=== PATIENT | male | born 1945 | race Caucasian/White ===

== ENCOUNTER → 2022-08-09 | Outpatient (CLI) | payer MEDICARE ==
[2022-08-09 14:13] LABS: African American GFR (CKD) >90 (>60 ml/min/1.73 sqM); Blood Urea Nitrogen 17 mg/dL (9-20); Non-African American GFR(CKD) 80 (>60 ml/min/1.73 sqM)
--- NOTE | 2022-08-10 07:19 | CT ---
EXAMINATION TYPE: CT abdomen w con DATE OF EXAM: 08/09/2022 COMPARISON: None at this institution. HISTORY: Bile duct obstruction. Recent outside abnormal ultrasound. CT DLP: 1257 mGycm Automated exposure control for dose reduction was used. TECHNIQUE: Helical acquisition of images was performed from the lung bases through the top of iliac crest to include entire abdomen. CONTRAST: Performed with Oral Contrast and with IV Contrast, patient injected with 100 mL of Isovue 300. FINDINGS: LUNG BASES: Dense Calcification at level of the aortic valve.. LIVER/GB: Liver is diffusely low dense consistent with diffuse fatty infiltration. There are thin-wal led cysts of varying size and shape scattered throughout the liver, largest in right hepatic dome kenna sures 5.5 cm long axis axial image 14. There are few small dependent calcified gallstones in gallblad shoaib. No surrounding fluid or fat stranding is seen. Common bile duct is mildly dilated up to 13 mm co prince image 55 with abrupt tapering towards the duodenal ampulla. There is no significant intrahepati c biliary dilatation. PANCREAS: Some heterogeneity of the pancreas. No ductal dilatation. There is lobulated low dense mass in the uncinate process region of the pancreas measuring 2.9 x 2.8 cm axial image 36 SPLEEN: No significant abnormality is seen. ADRENALS: No significant abnormality is seen. KIDNEYS: There is 2.4 x 1.8 cm exophytic oval low dense lesion from the lower pole right kidney felt to reflect exophytic simple thin-walled cyst. BOWEL: Oral contrast does not reach colonic level. No suspicious bowel dilatation. LYMPH NODES: No significant abnormality is seen. OSSEOUS STRUCTURES: Osseous hemangioma involving the L1 vertebra with mild height loss at this level . Osseous structures are demineralized. Some bridging osteophytes in the thoracic spine are present. Disc calcification with [id number] disc space narrowing lumbosacral junction is seen. Facet art hropathy lower lumbar levels. FREE AIR: No free air is visualized. OTHER: Mild to moderate peripheral calcified plaque of the aorta extends into branch vessels. IMPRESSION: CONFIRMATION OF MILD TO MODERATE EXTRAHEPATIC BILIARY DILATATION WITHOUT VISUALIZED INTRAHEPATIC BILI JACKELYN DILATATION. THERE IS ABRUPT TAPERING. THERE IS NONSPECIFIC 2.9 CM LOBULATED LOW DENSE MASS IN THE UNCINATE PROCESS OF THE PANCREAS FAVORING CYSTIC ETIOLOGY. CYSTIC NEOPLASM CANNOT BE EXCLUDED. NO PA NCREATIC DUCTAL DILATATION. I WOULD ADVISE ERCP AND/OR ENDOSCOPIC ULTRASOUND TO FURTHER EVALUATE BOTH PANCREATIC LESION AND ABRUPT TAPERING OF THE CBD.
== END | disposition home or self-care (01) ==
LOC: RADCTMAIN 12:53
PROVIDERS: ATTEND Family Medicine
DX: K83.1 Obstruction of bile duct (principal); K83.8 Other specified diseases of biliary tract
CPT/HCPCS: 82565; 84520; 74160; Q9967

== ENCOUNTER 2022-08-27 08:40 | Inpatient (IN) | payer MEDICARE ==
--- NOTE | 2022-08-27 09:08 | ED ---
Abdominal Pain HPI - General Chief Complaint: Abdominal Pain Stated Complaint: Bladder pain Time Seen by Provider: 08/27/22 08:50 Source: patient Mode of arrival: ambulatory Limitations: no limitations - History of Present Illness Initial Comments: 77-year-old male with past history of high blood pressure, hypertension, recent diagnosis of pancreatic cancer and presents to the emergency department reporting urinary retention. He had a ERCP on Saturday at [facility]. Surgeon was Dr. León. Patient reports that after the procedure he has been unable to urinate. Has been dribbling since then without any real urine output. Denies previous history of this. Please he has been told that he had an enlarged prostate but does not take any medications. He is scheduled to follow-up on Saturday with Dr. León for a biliary stent. He called his surgeon this morning and told him that he has not had any urinary output and he recommended that he be evaluated in the emergency department. He does admit to some abdominal discomfort. No fevers. Admits nausea without vomiting. No other alleviating, precipitating or modifying factors - Related Data Home Medications Medication Instructions Recorded Confirmed Atorvastatin [Lipitor] 40 mg PO HS 12/05/15 08/27/22 amLODIPine [Norvasc] 10 mg PO HS 12/05/15 08/27/22 Cholecalciferol [Vitamin D3 (25 50 mcg PO DAILY 08/27/22 08/27/22 Mcg = 1000 Iu)] Cholestyramine (with Sugar) 4 gm PO BID 08/27/22 08/27/22 [Cholestyramine Packet] Multivit-Min/FA/Lycopen/Lutein 1 tab PO DAILY 08/27/22 08/27/22 [Centrum Silver Tablet] [place]-3 500mg 1 cap PO Q48H 08/27/22 08/27/22 Saw [place] 450mg 1 cap PO AC-BID 08/27/22 08/27/22 Vitamin E (Dl,Tocopheryl Acet) 400 unit PO W/SUPPER 08/27/22 08/27/22 [Vitamin E (400 Iu = 180 mg)] Vits A,C,E/Lutein/Minerals 1 tab PO DAILY 08/27/22 08/27/22 [Ocuvite with Lutein Tablet] Previous Rx's Medication Instructions Recorded Sodium Bicarbonate Tab 650 mg PO BID #0 tab 08/29/22 Tamsulosin [Flomax] 0.4 mg PO PC-SUPPER #30 cap 08/29/22 Allergies Allergy/AdvReac Type Severity Reaction Status Date / Time No Known Allergies Allergy Verified 08/27/22 12:52 Review of Systems ROS Statement: Those systems with pertinent positive or pertinent negative responses have been documented in the HPI. ROS Other: All systems not noted in ROS Statement are negative. Past Medical History Past Medical History: Hyperlipidemia, Hypertension History of Any Multi-Drug Resistant Organisms: None Reported Past Surgical History: Joint Replacement Additional Past Surgical History / Comment(s): RIGHT KNEE REPLACED. Past Anesthesia/Blood Transfusion Reactions: No Reported Reaction Past Psychological History: No Psychological Hx Reported Smoking Status: Never smoker Past Alcohol Use History: Occasional Past Drug Use History: None Reported - Past Family History Brother(s) Additional Family Medical History / Comment(s): gallstones Father Additional Family Medical History / Comment(s): prostate cancer, from "old age" Mother Additional Family Medical History / Comment(s): from PE after open heart surgery. General Exam Limitations: no limitations General appearance: alert, in no apparent distress Head exam: Present: atraumatic, normocephalic, normal inspection Eye exam: Present: normal appearance, PERRL, EOMI. Absent: scleral icterus, conjunctival injection, periorbital swelling ENT exam: Present: normal exam, mucous membranes moist Neck exam: Present: normal inspection. Absent: tenderness, meningismus, lymphadenopathy Respiratory exam: Present: normal lung sounds bilaterally. Absent: respiratory distress, wheezes, rales, rhonchi, stridor Cardiovascular Exam: Present: regular rate, normal rhythm, normal heart sounds. Absent: systolic murmur, diastolic murmur, rubs, gallop, clicks GI/Abdominal exam: Present: soft, distended (suprapubic), tenderness, normal bowel sounds. Absent: guarding, rebound, rigid Extremities exam: Present: normal inspection, full ROM, normal capillary refill. Absent: tenderness, pedal edema, joint swelling, calf tenderness Back exam: Present: normal inspection Neurological exam: Present: alert, oriented X3, CN II-XII intact Psychiatric exam: Present: normal affect, normal mood Skin exam: Present: warm, dry, intact, other (jaundice). Absent: rash Course Vital Signs 0408/27/22 08/27/22 08:45 12:22 15:51 Temperature 97.7 F 97.7 F Pulse Rate 81 69 94 Respiratory 18 16 19 Rate Blood Pressure 102/62 112/60 107/55 O2 Sat by Pulse 98 97 98 Oximetry 08/27/22 08/27/22 08/28/22 18:36 23:55 03:19 Temperature Pulse Rate 77 72 72 Respiratory 20 18 18 Rate Blood Pressure 111/55 106/54 119/70 O2 Sat by Pulse 97 97 98 Oximetry 08/28/22 08/28/22 08/28/22 06:16 09:55 13:22 Temperature Pulse Rate 76 69 71 Respiratory 18 18 18 Rate Blood Pressure 118/60 112/58 126/74 O2 Sat by Pulse 97 98 95 Oximetry - Reevaluation(s) Reevaluation #1: Page the patient's surgeon, Dr. León. Awaiting callback 08/27/22 10:40 Reevaluation #2: Spoke with Dr. Albright. Better to transfer the patient at this time due to rising bilis 08/27/22 11:25 Reevaluation #3: Dr. Donato accepts the patient - will call Dr. Albright back 08/27/22 14:02 Medical Decision Making - Medical Decision Making Was pt. sent in by a medical professional or institution ([facility], [facility], urgent care, hospital, or senior care...) When possible be specific @ -No Did you speak to anyone other than the patient for history (EMS, parent, family, police, friend...)? What history was obtained from this source @ - Did you review nursing and triage notes (agree or disagree)? Why? @ -I reviewed and agree with nursing and triage notes Were old charts reviewed (outside hosp., previous admission, EMS record, old EKG, old radiological studies, urgent care reports/EKG's, senior care records)? Report findings @ -old charts were reviewed - brings the patients paperwork from his care at [facility] Differential Diagnosis (chest pain, altered mental status, abdominal pain women, abdominal pain men, vaginal bleeding, weakness, fever, dyspnea, syncope, headache, dizziness, GI bleed, back pain, seizure, CVA, palpatations, mental health, musculoskeletal)? @ -urinary retention, sedation side effect, uti, metastatic cancer, enlarged prostate EKG interpreted by me (3pts min.). @ -No X-rays interpreted by me (1pt min.). @ -No CT interpreted by me (1pt min.). @ -None done U/S interpreted by me (1pt. min.). @ -None done What testing was considered but not performed or refused? (CT, X-rays, U/S, labs)? Why? @ -None What meds were considered but not given or refused? Why? @ -None Did you discuss the management of the patient with other professionals (professionals i.e. DrSissy, PA, [employer], lab, RT, psych nurse, transition social worker, solutions architect consultant, teacher, ambulance officer, case preparer and liner)? Give summary @ -Patients surgeon Dr. León, Dr. Donato, Dr. Albright, [facility] Was smoking cessation discussed for >3mins.? @ -No Was critical care preformed (if so, how long)? @ -No Were there social determinants of health that impacted care today? How? (Homelessness, low income, unemployed, alcoholism, drug addiction, transportation, low edu. Level, literacy, decrease access to med. care, penitentiary, rehab)? @ -No Was there de-escalation of care discussed even if they declined (Discuss DNR or withdrawal of care, Hospice)? DNR status @ -No What co-morbidities impacted this encounter? (DM, HTN, Smoking, COPD, CAD, C ancer, CVA, ARF, Chemo, Hep., AIDS, mental health diagnosis, sleep apnea, morbid obesity)? @ -pancreatic cancer Was patient admitted / discharged? Hospital course, mention meds given and route, prescriptions, significant lab abnormalities, going to OR and other pertinent info. @ -Upon arrival patient was placed into room 3. History and physical exam was performed. Patient does have significant readings on bladder scan and therefore Perez is placed. Patient does have output of 2900 cc of urine. Laboratory studies were completed which demonstrate a creatinine of 4.4. Bilirubin is 20 however this is stable for the patient according to his surgeon. Did speak with the patient's surgeon at [facility]. He does not that the patient needs transfer to [facility] as they will cancel the biliary stents of the kidney function is improved. I spoke with Dr. Cline who was agreeable to consult on the patient because of his elevated bilirubin. Called and spoke with Dr. Albright who was agreeable to admit the patient and nephrology will be placed on consult. Patient was agreeable to this. Undiagnosed new problem with uncertain prognosis? @ -yes Drug Therapy requiring intensive monitoring for toxicity (Heparin, Nitro, Insulin, Cardizem)? @ -No Were any procedures done? @ -perez placement Diagnosis/symptom? @ -acute urinary retention, melvin, pancreatic cancer with obstruction (chronic) Acute, or Chronic, or Acute on Chronic? @ -acute Uncomplicated (without systemic symptoms) or Complicated (systemic symptoms)? @ -complicated Side effects of treatment? @ -No Exacerbation, Progression, or Severe Exacerbation? @ -No Poses a threat to life or bodily function? How? (Chest pain, USA, PA, pneumonia, PE, COPD, DKA, ARF, appy, cholecystitis, CVA, Diverticulitis, Homicidal, Suicidal, threat to staff... and all critical care pts) @ -yes - Lab Data Result diagrams: 08/28/22 05:58 08/29/22 06:40 Lab Results 08/27/22 08/27/22 08/27/22 Range/Units 09:46 09:46 09:46 WBC 12.6 H (3.8-10.6) k/uL RBC 3.78 L (4.30-5.90) m/uL Hgb 11.9 L (13.0-17.5) gm/dL Hct 35.7 L (39.0-53.0) % MCV 94.6 (80.0-100.0) fL MCH 31.6 (25.0-35.0) pg MCHC 33.4 (31.0-37.0) g/dL RDW 16.5 H (11.5-15.5) % Plt Count 195 (150-450) k/uL MPV 10.1 Neutrophils % 83 % Lymphocytes % 5 % Monocytes % 8 % Eosinophils % 0 % Basophils % 0 % Neutrophils # 10.4 H (1.3-7.7) k/uL Lymphocytes # 0.7 L (1.0-4.8) k/uL Monocytes # 1.1 H (0-1.0) k/uL Eosinophils # 0.1 (0-0.7) k/uL Basophils # 0.0 (0-0.2) k/uL Anisocytosis Slight Sodium 131 L (137-145) mmol/L Potassium 5.0 (3.5-5.1) mmol/L Chloride 97 L (98-107) mmol/L Carbon Dioxide 14 L (22-30) mmol/L Anion Gap 20 mmol/L BUN 87 H (9-20) mg/dL Creatinine 4.44 H (0.66-1.25) mg/dL Est GFR (CKD-EPI)AfAm 14 (>60 ml/min/1.73 sqM) Est GFR (CKD-EPI)NonAf 12 (>60 ml/min/1.73 sqM) Glucose 105 H (74-99) mg/dL Calcium 8.0 L (8.4-10.2) mg/dL Total Bilirubin 20.0 H* (0.2-1.3) mg/dL AST 150 H (17-59) U/L ALT 78 H (4-49) U/L Alkaline Phosphatase 465 H (38-126) U/L Total Protein 7.1 (6.3-8.2) g/dL Albumin 3.6 (3.5-5.0) g/dL Urine Color Dark Brown Urine Appearance Cloudy (Clear) Urine pH 5.5 (5.0-8.0) Ur Specific [place] 1.017 (1.001-1.035) Urine Protein Trace H (Negative) Urine Glucose (UA) Negative (Negative) Urine Ketones Negative (Negative) Urine Blood Small H (Negative) Urine Nitrite Negative (Negative) Urine Bilirubin 1+ H (Negative) Urine Urobilinogen <2.0 (<2.0) mg/dL Ur Leukocyte Esterase Negative (Negative) Urine RBC 14 H (0-5) /hpf Urine WBC 3 (0-5) /hpf Urine Mucus Rare H (None) /hpf Coronavirus (PCR) (Not Detectd) 08/27/22 Range/Units 11:46 WBC (3.8-10.6) k/uL RBC (4.30-5.90) m/uL Hgb (13.0-17.5) gm/dL Hct (39.0-53.0) % MCV (80.0-100.0) fL MCH (25.0-35.0) pg MCHC (31.0-37.0) g/dL RDW (11.5-15.5) % Plt Count (150-450) k/uL MPV Neutrophils % % Lymphocytes % % Monocytes % % Eosinophils % % Basophils % % Neutrophils # (1.3-7.7) k/uL Lymphocytes # (1.0-4.8) k/uL Monocytes # (0-1.0) k/uL Eosinophils # (0-0.7) k/uL Basophils # (0-0.2) k/uL Anisocytosis Sodium (137-145) mmol/L Potassium (3.5-5.1) mmol/L Chloride (98-107) mmol/L Carbon Dioxide (22-30) mmol/L Anion Gap mmol/L BUN (9-20) mg/dL Creatinine (0.66-1.25) mg/dL Est GFR (CKD-EPI)AfAm (>60 ml/min/1.73 sqM) Est GFR (CKD-EPI)NonAf (>60 ml/min/1.73 sqM) Glucose (74-99) mg/dL Calcium (8.4-10.2) mg/dL Total Bilirubin (0.2-1.3) mg/dL AST (17-59) U/L ALT (4-49) U/L Alkaline Phosphatase (38-126) U/L Total Protein (6.3-8.2) g/dL Albumin (3.5-5.0) g/dL Urine Color Urine Appearance (Clear) Urine pH (5.0-8.0) Ur Specific [place] (1.001-1.035) Urine Protein (Negative) Urine Glucose (UA) (Negative) Urine Ketones (Negative) Urine Blood (Negative) Urine Nitrite (Negative) Urine Bilirubin (Negative) Urine Urobilinogen (<2.0) mg/dL Ur Leukocyte Esterase (Negative) Urine RBC (0-5) /hpf Urine WBC (0-5) /hpf Urine Mucus (None) /hpf Coronavirus (PCR) Not Detected (Not Detectd) Disposition Clinical Impression: MELVIN (acute kidney injury), Elevated bilirubin, Pancreatic cancer, Urinary retention Disposition: ADMITTED IP TO THIS [facility] Condition: Stable Is patient prescribed a controlled substance at d/c from ED?: No Time of Disposition: 11:37 Decision to Admit Reason: Admit from EC Decision Date: 08/27/22 Decision Time: 14:03
[2022-08-27 10:10] LABS: Anisocytosis Slight; Basophils % (A) 0 %; Eosinophils # (A) 0.1 k/uL (0-0.7); Eosinophils % (A) 0 %; HCT 35.7 % (39.0-53.0); HGB 11.9 gm/dL (13.0-17.5); Lymphocytes # (A) 0.7 k/uL (1.0-4.8); Lymphocytes % (A) 5 %; MCH 31.6 pg (25.0-35.0); MCHC 33.4 g/dL (31.0-37.0); MCV 94.6 fL (80.0-100.0); Mean Platelet Volume 10.1; Monocytes # (A) 1.1 k/uL (0-1.0); Monocytes % (A) 8 %; Neutrophils # (A) 10.4 k/uL (1.3-7.7); Neutrophils % (A) 83 %; Platelet Count 195 k/uL (150-450); RBC 3.78 m/uL (4.30-5.90); RDW 16.5 % (11.5-15.5); WBC 12.6 k/uL (3.8-10.6)
[2022-08-27 10:15] LABS: Albumin 3.6 g/dL (3.5-5.0); Total Protein 7.1 g/dL (6.3-8.2)
[2022-08-27 10:27] LABS: Appearance,Urine Cloudy (Clear); Bilirubin,Urine 1+ (Negative); Blood,Urine Small (Negative); Color,Urine Dark Brown; Glucose,Urine (UA) Negative (Negative); Ketones,Urine Negative (Negative); Leukocyte Esterase,Urine Negative (Negative); Mucus,Urine Rare /hpf; Nitrite,Urine Negative (Negative); PH, Urine 5.5 (5.0-8.0); Protein,Urine Trace (Negative); RBC,Urine 14 /hpf (0-5); Specific Gravity,Urine 1.017 (1.001-1.035); Urobilinogen,Urine <2.0 mg/dL (<2.0); WBC,Urine 3 /hpf (0-5)
[2022-08-27] MEDS ORDERED: NALOXONE 0.4 MG/ML 1 ML VIAL IV PRN (14:03)
[2022-08-27] MEDS: SODIUM CHLORIDE 0.9% 1,000 ML IV SCH ×2 (17:16→23:55)
[2022-08-28] MEDS: SODIUM CHLORIDE 0.9% 1,000 ML IV SCH ×2 (06:19→15:40)
--- NOTE | 2022-08-28 07:01 | P.CONS ---
History of Present Illness - Reason for Consult Consult date: 08/28/22 Pancreatic cancer Requesting physician: Monica Lomax - Chief Complaint Bladder distention, urinary retention - History of Present Illness This a pleasant 77-year-old male presented to the emergency department this morning with complaints of bladder distention and urinary retention since last week Saturday. Patient was recently seen by Dr. Donato in outpatient setting for jaundice and sent down to [facility] for biliary obstructive jaundice to undergo ERCP and EUS. Apparently there was concern for a 2 cm mass seen on EUS, they were unable to insert stent. Patient was scheduled to go back to [facility] to see their interventional radiologist. Concern for pancreatic carcinoma. Patient states he currently is feeling better, apparently Lee catheter was inserted and he had approximately 3 L of urine output. Patient states he's had a decreased appetite, some fatigue. He denies any nausea or vomiting. Denies any abdominal pain. Last bowel movement was today. Denies any ascites and occasionally gets lower extremity swelling in the bernard nings. He denies any previous history of urinary retention. On admission he was noted to have acute kidney injury. Gastroenterology was consulted for hyperbilirubinemia, concern for pancreatic carcinoma. Labs WBC 12.6 hemoglobin 11.9 hematocrit 35 platelet count 195,000 sodium 131 potassium 5.0 BUN 87 creatinine 4.4 glucose 105 total bilirubin 20.0 AST 150 ALT 78 alkaline phosphatase 465 Review of Systems REVIEW OF SYSTEMS: CARDIOPULMONARY: No chest pain or shortness of breath. Gastrointestinal: Upset stomach, no abdominal pain. Nausea but no vomiting. Decreased appetite. No hematemesis, coffee-ground emesis. No rectal bleeding, or melena. GENITOURINARY: No dysuria or hematuria. Urinary retention, unable to void for 5 days. MUSCULOSKELETAL: Reports normal range of motion. SKIN: No rashes. Jaundice. ENDOCRINE: No chills, fevers. No excessive weight gain or loss. No polydipsia or polyuria. PSYCHIATRIC: Unremarkable. NEUROLOGY: No change in mental status. Denies dizziness, headache. ENT: Vision unremarkable. CONSTITUTIONAL: No recent weight loss. No fever, chills, night sweats. Increased fatigue. Past Medical History Past Medical History: Hyperlipidemia, Hypertension History of Any Multi-Drug Resistant Organisms: None Reported Past Surgical History: Joint Replacement Additional Past Surgical History / Comment(s): RIGHT KNEE REPLACED. Past Anesthesia/Blood Transfusion Reactions: No Reported Reaction Past Psychological History: No Psychological Hx Reported Smoking Status: Never smoker Past Alcohol Use History: Occasional Past Drug Use History: None Reported Medications and Allergies Home Medications Medication Instructions Recorded Confirmed Type Atorvastatin [Lipitor] 40 mg PO HS 12/05/15 08/27/22 History amLODIPine [Norvasc] 10 mg PO HS 12/05/15 08/27/22 History Cholecalciferol [Vitamin D3 (25 50 mcg PO DAILY 08/27/22 08/27/22 History Mcg = 1000 Iu)] Cholestyramine (with Sugar) 4 gm PO BID 08/27/22 08/27/22 History [Cholestyramine Packet] Losartan Potassium 100 mg PO DAILY 08/27/22 08/27/22 History Multivit-Min/FA/Lycopen/Lutein 1 tab PO DAILY 08/27/22 08/27/22 History [Centrum Silver Tablet] [place]-3 500mg 1 cap PO Q48H 08/27/22 08/27/22 History Saw [place] 450mg 1 cap PO AC-BID 08/27/22 08/27/22 History Vitamin E (Dl,Tocopheryl Acet) 400 unit PO W/SUPPER 08/27/22 08/27/22 History [Vitamin E (400 Iu = 180 mg)] Vits A,C,E/Lutein/Minerals 1 tab PO DAILY 08/27/22 08/27/22 History [Ocuvite with Lutein Tablet] Allergies Allergy/AdvReac Type Severity Reaction Status Date / Time No Known Allergies Allergy Verified 08/27/22 12:52 Physical Exam Vitals: Vital Signs Temp Pulse Resp BP Pulse Ox 08/27/22 15:51 97.7 F 94 19 107/55 98 08/27/22 12:22 69 16 112/60 97 08/27/22 08:45 97.7 F 81 18 102/62 98 Intake and Output 08/27/22 08/27/22 08/27/22 06:59 14:59 22:59 Other: Weight 99.79 kg General appearance: The patient is alert, oriented, appears in no acute distress. HET: Head is normocephalic and atraumatic. Conjunctiva pink. Sclera deeply icteric. Neck: Supple without lymphadenopathy. Trachea midline. Heart: S1 S2. Regular rate and rhythm. Lungs: Clear to auscultation. Abdomen: Soft, nontender, nondistended with bowel sounds. No guarding or rigidity. Skin: No rashes. Jaundiced. Extremities: Normal skin color and turgor. No pedal edema. Neurological: No focal deficits. Alert and oriented x3. Results CBC & Chem 7: 08/27/22 09:46 08/27/22 09:46 Labs: Abnormal Lab Results - Last 24 Hours (Table) 08/27/22 08/27/22 08/27/22 Range/Units 09:46 09:46 09:46 WBC 12.6 H (3.8-10.6) k/uL RBC 3.78 L (4.30-5.90) m/uL Hgb 11.9 L (13.0-17.5) gm/dL Hct 35.7 L (39.0-53.0) % RDW 16.5 H (11.5-15.5) % Neutrophils # 10.4 H (1.3-7.7) k/uL Lymphocytes # 0.7 L (1.0-4.8) k/uL Monocytes # 1.1 H (0-1.0) k/uL Sodium 131 L (137-145) mmol/L Chloride 97 L (98-107) mmol/L Carbon Dioxide 14 L (22-30) mmol/L BUN 87 H (9-20) mg/dL Creatinine 4.44 H (0.66-1.25) mg/dL Glucose 105 H (74-99) mg/dL Calcium 8.0 L (8.4-10.2) mg/dL Total Bilirubin 20.0 H* (0.2-1.3) mg/dL AST 150 H (17-59) U/L ALT 78 H (4-49) U/L Alkaline Phosphatase 465 H (38-126) U/L Urine Protein Trace H (Negative) Urine Blood Small H (Negative) Urine Bilirubin 1+ H (Negative) Urine RBC 14 H (0-5) /hpf Urine Mucus Rare H (None) /hpf Assessment and Plan (1) Hyperbilirubinemia Narrative/Plan: This is a 77-year-old male who recently established with Dr. Donato in the outpatient setting for jaundice. Patient was recently sent on to [facility] to gastroenterology for concerns of biliary obstructive jaundice. Patient underwent ERCP and EUS, approximate 2 cm mass was found however biliary stent was unable to be placed. Concerns for pancreatic carcinoma. Patient supposed to follow-up this week with [facility] interventional radiologist for possible stent placement. However over the last 5 days patient has been unable to urinate. Patient was admitted with urinary retention and acute kidney injury. Patient is stable from a gastroenterology perspective. Once urinary retention improves and acute kidney injury resolved patient will follow up outpatient with [facility]. Current Visit: Yes Status: Acute Code(s): E80.6 - OTHER DISORDERS OF BILIRUBIN METABOLISM SNOMED Code(s): 56827320 (2) MELVIN (acute kidney injury) Current Visit: Yes Status: Acute Code(s): N17.9 - ACUTE KIDNEY FAILURE, UNSPECIFIED SNOMED Code(s): 91711070 (3) Urinary retention Current Visit: Yes Status: Acute Code(s): R33.9 - RETENTION OF URINE, UNSPECIFIED SNOMED Code(s): 914216235 Plan: 1. Continue symptomatic and supportive care 2. Continue recommendations from nephrology 3. Heart healthy diet 4. Repeat BMP 5. No plans on endoscopic evaluation. Patient is established with [facility] Dr. León for biliary obstructive jaundice. Patient to follow-up as planned with [facility] in next 1-2 days Thank you for this consultation, we will continue to follow. Dr. Jony Donato I agree with the dictator's note, documented as a scribe by Johanna Hastings.
[2022-08-28] MEDS: CHOLECALCIFEROL 25 MCG (1000 IU) TABLET PO SCH (10:39)
[2022-08-28] MEDS: CHOLESTYRAMINE (WITH SUGAR) 4 GM PACKET PO SCH ×2 (10:40→21:20)
[2022-08-28 11:06] LABS: HGB 10.2 g/dL (13.0-17.0); MCH 29.7 pg (27.0-32.0); MCHC 32.9 g/dL (32.0-37.0); MCV 90.1 fL (80.0-97.0); Mean Platelet Volume 12.1 fL (9.5-12.2); NRBC Per 100 WBC 0 /100 WBCS (0.0-0.0); Platelet Count 186 X 10*3/uL (140-440); RBC 3.44 X 10*6/uL (4.40-5.60); RDW 18.6 % (11.5-14.5); WBC 8.84 X 10*3/uL (4.50-10.00)
[2022-08-28 11:21] LABS: African American GFR (CKD) 30.8 (60.0-200.0); Anion Gap 13.5 mmol/L (10.00-18.00); BUN/Creat Ratio 25.52 Ratio (12.00-20.00); Blood Urea Nitrogen 58.7 mg/dL (9.0-27.0); Calcium 7.8 mg/dL (8.7-10.3); Carbon Dioxide 17.5 mmol/L (20.0-27.5); Non-African American GFR(CKD) 26.6 (60.0-200.0); Potassium 4.7 mmol/L (3.5-5.5)
[2022-08-28 13:44] LABS: Basophils # (A) 0.03 X 10*3/uL (0.00-0.10); Basophils % (A) 0.3 %; Eosinophils # (A) 0.06 X 10*3/uL (0.04-0.35); Eosinophils % (A) 0.7 %; Immature Grans, Automated 0.3 %; Lymphocytes # (A) 0.68 X 10*3/uL (0.90-5.00); Lymphocytes % (A) 7.7 %; Monocytes # (A) 1.58 X 10*3/uL (0.20-1.00); Monocytes % (A) 17.9 %; Neutrophils # (A) 6.46 X 10*3/uL (1.80-7.70); Neutrophils % (A) 73.1 %
[2022-08-28 13:45] LABS: Macrocytosis (M) 2+; Target Cells 2+
--- NOTE | 2022-08-28 13:57 | P.HPIM ---
History of Present Illness H&P Date: 08/28/22 Chief Complaint: Difficulty urinating, bladder distention This is a pleasant 77-year-old gentleman with past medical history of hypertension, hyperlipidemia, BPH, biliary obstructive jaundice, recently-last week at [facility] for ERCP/stent placement. Suspicious for pancreatic carcinoma; a mass seen on EUS and they are unable to proceed with stent placement. Biopsy pending. Patient is scheduled to return to [facility] with interventional radiology, Dr León, for biliary stent placement. Reports decreased appetite ,denies nausea ,vomiting or abdominal pain. Positive bowel movement yesterday. Reports his urine became very dark, along with pauline colored stools and eventually was unable to urinate over the last 5 days.Afebrile WBC 12.6-now normalized, hemoglobin 10.2, hematocrit 31, platelets 186, sodium 132, potassium 4.7 bicarb 17.5. On admission BUN 87, creatinine 4.44, improving ,dedreased to 58.7/2.3. Total bilirubin 20.0 AST 150 ALT 78 alkaline phosphatase 465.UA negative, coronavirus not detected. Lee catheter placed, receiving IV fluid hydration. Review of Systems ROS Statement: Those systems with pertinent positive or pertinent negative responses have been documented in the HPI. ROS Other: All systems not noted in ROS Statement are negative. Past Medical History Past Medical History: Hyperlipidemia, Hypertension History of Any Multi-Drug Resistant Organisms: None Reported Past Surgical History: Joint Replacement Additional Past Surgical History / Comment(s): RIGHT KNEE REPLACED. Past Anesthesia/Blood Transfusion Reactions: No Reported Reaction Past Psychological History: No Psychological Hx Reported Smoking Status: Never smoker Past Alcohol Use History: Occasional Past Drug Use History: None Reported Medications and Allergies Home Medications Medication Instructions Recorded Confirmed Type Atorvastatin [Lipitor] 40 mg PO HS 12/05/15 08/27/22 History amLODIPine [Norvasc] 10 mg PO HS 12/05/15 08/27/22 History Cholecalciferol [Vitamin D3 (25 50 mcg PO DAILY 08/27/22 08/27/22 History Mcg = 1000 Iu)] Cholestyramine (with Sugar) 4 gm PO BID 08/27/22 08/27/22 History [Cholestyramine Packet] Losartan Potassium 100 mg PO DAILY 08/27/22 08/27/22 History Multivit-Min/FA/Lycopen/Lutein 1 tab PO DAILY 08/27/22 08/27/22 History [Centrum Silver Tablet] [place]-3 500mg 1 cap PO Q48H 08/27/22 08/27/22 History Saw [place] 450mg 1 cap PO AC-BID 08/27/22 08/27/22 History Vitamin E (Dl,Tocopheryl Acet) 400 unit PO W/SUPPER 08/27/22 08/27/22 History [Vitamin E (400 Iu = 180 mg)] Vits A,C,E/Lutein/Minerals 1 tab PO DAILY 08/27/22 08/27/22 History [Ocuvite with Lutein Tablet] Allergies Allergy/AdvReac Type Severity Reaction Status Date / Time No Known Allergies Allergy Verified 08/27/22 12:52 Physical Exam Vitals: Vital Signs Temp Pulse Resp BP Pulse Ox 08/28/22 09:55 69 18 112/58 98 08/28/22 06:16 76 18 118/60 97 08/28/22 03:19 72 18 119/70 98 08/27/22 23:55 72 18 106/54 97 08/27/22 18:36 77 20 111/55 97 08/27/22 15:51 97.7 F 94 19 107/55 98 08/27/22 12:22 69 16 112/60 97 Intake and Output 08/27/22 08/28/22 08/28/22 22:59 06:59 14:59 Output Total 1200 1800 Balance -1200 -1800 Output: Urine 1200 1800 PHYSICAL EXAM: VITAL SIGNS: As above GENERAL: Sitting up on stretcher, no acute distress, jaundiced. HEENT: Normocephalic, atraumatic ,Conjunctivae normal. eyes normal. Sclera icterus NECK: Supple, No JVD. No thyroid enlargement. No LNs CARDIOVASCULAR: S1, S2 regular.. No murmur RESPIRATION: Nonlabored ,Breath sounds diminished in the bases. No rhonchi or crackles. No bronchial breathing. ABDOMEN: Soft, nondistended, nontender . No guarding. No rigidity .+BS LEGS: No edema. no swelling PSYCHIATRY: Alert and oriented X3, mood and affect normal. NERVOUS SYSTEM: Cranial N 2-12 grossly normal. No focal deficits. Strength and sensation grossly intact.. Skin: Jaundiced ,Warm and dry, no rash. Results CBC & Chem 7: 08/28/22 05:58 08/28/22 05:58 Labs: Abnormal Lab Results - Last 24 Hours (Table) 08/27/22 08/27/22 08/27/22 Range/Units 09:46 09:46 09:46 WBC 12.6 H (3.8-10.6) k/uL RBC 3.78 L (4.30-5.90) m/uL Hgb 11.9 L (13.0-17.5) gm/dL Hct 35.7 L (39.0-53.0) % RDW 16.5 H (11.5-15.5) % Neutrophils # 10.4 H (1.3-7.7) k/uL Lymphocytes # 0.7 L (1.0-4.8) k/uL Monocytes # 1.1 H (0-1.0) k/uL Sodium 131 L (137-145) mmol/L Chloride 97 L (98-107) mmol/L Carbon Dioxide 14 L (22-30) mmol/L BUN 87 H (9-20) mg/dL Creatinine 4.44 H (0.66-1.25) mg/dL Glucose 105 H (74-99) mg/dL Calcium 8.0 L (8.4-10.2) mg/dL Total Bilirubin 20.0 H* (0.2-1.3) mg/dL AST 150 H (17-59) U/L ALT 78 H (4-49) U/L Alkaline Phosphatase 465 H (38-126) U/L Urine Protein Trace H (Negative) Urine Blood Small H (Negative) Urine Bilirubin 1+ H (Negative) Urine RBC 14 H (0-5) /hpf Urine Mucus Rare H (None) /hpf Assessment and Plan Assessment: Acute renal failure secondary to urinary retention, Lee catheter placed, improving. Hyperbilirubinemia with biliary obstructive jaundice Workup in progress for Pancreatic cancer at [facility], biliary stent placement pending. Plan: Continue on current medication regime ,monitoring and symptomatic treatment. IV fluid hydration. Nephrology consult in place, recommendations pending. Close monitoring of renal function with repeat labs ordered for a.m. evaluated by GI with recommendations noted including no endoscopy plans-patient to return to [facility]. Patient will be discharged as soon as renal function significantly improves with patient to continue following up with [facility] for biliary stent [facility] The impression and plan of care has been dictated as directed. : I performed a history and examination of this patient, discussed the same with the dictator. I agree with the dictator's note ,documented as a scribe. Any additional findings or plans will be noted.
--- NOTE | 2022-08-28 16:06 | P.NPCON ---
History of Present Illness - Reason for Consult acute renal failure - History of Present Illness Reason for consultation: Acute kidney injury History of present illness: Patient is a 77-year-old male seen in renal consultation for acute kidney injury. Patient was seen and examined in the emergency room. Patient states he noticed jaundice in early July of this year and was subsequently diagnosed with pancreatic cancer recently. States he underwent ERCP at an outside facility and is scheduled for a biliary stent placement tomorrow. He has not started any chemotherapy at this time. Patient states since his ERCP he wasn't voiding much. Patient's creatinine on admission was 4.44 and is 2.3 today. He was noted to have urinary retention and Lee catheter was placed. Patient is nonoliguric with about 3 L of urine output since admission. He denies use of nonsteroidals. He is receiving IV fluids. Denies history of diabetes or coronary artery disease. No vomiting or diarrhea. Oral intake has been fair. Vital signs are stable. General: No acute distress. HEENT: Head exam is unremarkable. LUNGS: No audible rhonchi or wheezes. HEART: Rate and Rhythm are regular. ABDOMEN: Soft, nontender. EXTREMITITES: No edema. Diffuse jaundice noted. Past Medical History Past Medical History: Hyperlipidemia, Hypertension, Prostate Disorder Additional Past Medical History / Comment(s): currently jaundiced, current urinary retention, pancreatic cancer diagnosed on 08/22/22 at [facility] History of Any Multi-Drug Resistant Organisms: None Reported Past Surgical History: Joint Replacement Additional Past Surgical History / Comment(s): right knee replaced, ercp (no stent) at [facility] on 08/22/22, Past Anesthesia/Blood Transfusion Reactions: No Reported Reaction Additional Past Anesthesia/Blood Transfusion Reaction / Comment(s): never received blood before Past Psychological History: No Psychological Hx Reported Smoking Status: Never smoker Past Alcohol Use History: Occasional Past Drug Use History: None Reported - Past Family History Brother(s) Additional Family Medical History / Comment(s): gallstones Father Additional Family Medical History / Comment(s): prostate cancer, from "old age" Mother Additional Family Medical History / Comment(s): from PE after open heart surgery. Medications and Allergies Home Medications Medication Instructions Recorded Confirmed Type Atorvastatin [Lipitor] 40 mg PO HS 12/05/15 08/27/22 History amLODIPine [Norvasc] 10 mg PO HS 12/05/15 08/27/22 History Cholecalciferol [Vitamin D3 (25 50 mcg PO DAILY 08/27/22 08/27/22 History Mcg = 1000 Iu)] Cholestyramine (with Sugar) 4 gm PO BID 08/27/22 08/27/22 History [Cholestyramine Packet] Losartan Potassium 100 mg PO DAILY 08/27/22 08/27/22 History Multivit-Min/FA/Lycopen/Lutein 1 tab PO DAILY 08/27/22 08/27/22 History [Centrum Silver Tablet] [place]-3 500mg 1 cap PO Q48H 08/27/22 08/27/22 History Saw [place] 450mg 1 cap PO AC-BID 08/27/22 08/27/22 History Vitamin E (Dl,Tocopheryl Acet) 400 unit PO W/SUPPER 08/27/22 08/27/22 History [Vitamin E (400 Iu = 180 mg)] Vits A,C,E/Lutein/Minerals 1 tab PO DAILY 08/27/22 08/27/22 History [Ocuvite with Lutein Tablet] Allergies Allergy/AdvReac Type Severity Reaction Status Date / Time No Known Allergies Allergy Verified 08/27/22 12:52 Physical Exam Vitals: Vital Signs Pulse Resp BP Pulse Ox 08/28/22 13:22 71 18 126/74 95 08/28/22 09:55 69 18 112/58 98 08/28/22 06:16 76 18 118/60 97 08/28/22 03:19 72 18 119/70 98 08/27/22 23:55 72 18 106/54 97 08/27/22 18:36 77 20 111/55 97 Intake and Output 08/28/22 08/28/22 08/28/22 06:59 14:59 22:59 Output Total 1800 Balance -1800 Output: Urine 1800 Other: Voiding Method Indwelling Catheter Weight 99.79 kg Results - Lab Results Most recent lab results Calcium 7.8 mg/dL (8.7-10.3) L 08/28/22 05:58 08/28/22 05:58 08/28/22 05:58 Assessment and Plan Plan: Assessment: 1. Acute kidney injury secondary to urinary retention. Creatinine 4.44 on admission and is 2.3 today. Baseline creatinine near 1. 2. Metabolic acidosis secondary to acute kidney injury. Improving. 3. Urinary retention status post Lee catheter placement. 4. Recently diagnosed pancreatic cancer. GI consulted. 5. Hyponatremia secondary to urinary retention. Improving. Plan: Decrease rate of IV fluids to 75 mL an hour. Add oral bicarb. Check renal ultrasound. Add Flomax. Consult urology for urinary retention. Continue to hold antihypertensives. Thank you for the consultation. I will continue to follow the patient with you during his hospital stay.
--- NOTE | 2022-08-28 16:45 | US ---
EXAMINATION TYPE: US kidneys/renal and bladder DATE OF EXAM: 08/28/2022 COMPARISON: CT 08/09/2022 CLINICAL HISTORY: soledad. Abnormal lab EXAM MEASUREMENTS: Right Kidney: 13.7 x 6.7 x 6.1 cm Left Kidney: 13.5 x 5.6 x 6.8 cm Right Kidney: Lower pole exophytic anechoic lesion = 2.6 x 2.4 x 1.8 cm Left Kidney: No hydronephrosis or masses seen Bladder: Perez seen Bilateral Jets not seen due to perez IMPRESSION: 1. No evidence of obstructive uropathy. 2. Perez catheter in appropriate position. 3. Right renal simple cyst.
[2022-08-28] MEDS ORDERED: TAMSULOSIN 0.4 MG CAP.ER.24H PO SCH (18:30)
[2022-08-28] MEDS ORDERED: ATORVASTATIN 40 MG TAB PO SCH (21:00)
[2022-08-28] MEDS ORDERED: amLODIPine 10 MG TAB PO SCH (21:00)
[2022-08-28] MEDS: SODIUM BICARBONATE TAB 650 MG TAB PO SCH (21:19)
[2022-08-29 01:38] VITALS: RESP 18
[2022-08-29] MEDS: SODIUM CHLORIDE 0.9% 1,000 ML IV SCH (01:38)
[2022-08-29 07:46] LABS: African American GFR (CKD) 63 (>60 ml/min/1.73 sqM); Anion Gap 12 mmol/L; Blood Urea Nitrogen 38 mg/dL (9-20); Calcium 7.4 mg/dL (8.4-10.2); Carbon Dioxide 17 mmol/L (22-30); Chloride 107 mmol/L (98-107); Glucose 78 mg/dL (74-99); Magnesium 2.4 mg/dL (1.6-2.3); Non-African American GFR(CKD) 54 (>60 ml/min/1.73 sqM); Potassium 4.5 mmol/L (3.5-5.1); Sodium 136 mmol/L (137-145)
[2022-08-29 07:47] VITALS: BP 137/73; PULSE 70; TEMP 97.6
[2022-08-29] MEDS: CHOLESTYRAMINE (WITH SUGAR) 4 GM PACKET PO SCH (08:05)
[2022-08-29] MEDS: CHOLECALCIFEROL 25 MCG (1000 IU) TABLET PO SCH (08:06)
[2022-08-29] MEDS: SODIUM BICARBONATE TAB 650 MG TAB PO SCH (08:06)
--- NOTE | 2022-08-29 08:58 | P.GSCN ---
History of Present Illness Consult date: 08/29/22 Reason for Consult: Urinary retention Requesting physician: Frankie Kennedy History of present illness: The patient is a 77-year-old male with a past medical history of hyperlipidemia, hypertension, and a recent diagnosis of pancreatic cancer. He presented to the emergency department on 08/27/22 reporting urinary retention. He had a ERCP on Saturday at [facility]. Surgeon was Dr. León. Patient reports that after the procedure he has been unable to urinate. Has been dribbling since then without any real urine output. Denies previous history of this. Please he has been told that he had an enlarged prostate but does not take any medications. He is scheduled to follow-up on Saturday with Dr. León for a biliary stent. He called his surgeon and told him that he has not had any urinary output and he recommended that he be evaluated in the emergency department. He did admit to some abdominal discomfort. No fevers. Admits nausea without vomiting. The patient had significant readings on bladder scan in the emergency department and therefore a Lee catheter was placed. The patient had output of 2.9 L of urine. Serum creatinine upon admission was 4.44, nephrology following for MELVIN. Review of Systems - Constitutional Denies chills, Denies fever - Gastrointestinal Reports abdominal pain, Reports nausea, Denies vomiting - Genitourinary Reports urinary retention Past Medical History Past Medical History: Hyperlipidemia, Hypertension, Prostate Disorder Additional Past Medical History / Comment(s): currently jaundiced, current urinary retention, pancreatic cancer diagnosed on 08/22/22 at [facility] History of Any Multi-Drug Resistant Organisms: None Reported Past Surgical History: Joint Replacement Additional Past Surgical History / Comment(s): right knee replaced, ercp (no stent) at [facility] on 08/22/22, Past Anesthesia/Blood Transfusion Reactions: No Reported Reaction Additional Past Anesthesia/Blood Transfusion Reaction / Comm: never received blood before Past Psychological History: No Psychological Hx Reported Smoking Status: Never smoker Past Alcohol Use History: Occasional Past Drug Use History: None Reported - Past Family History Brother(s) Additional Family Medical History / Comment(s): gallstones Father Additional Family Medical History / Comment(s): prostate cancer, from "old age" Mother Additional Family Medical History / Comment(s): from PE after open heart surgery. Medications and Allergies Home Medications Medication Instructions Recorded Confirmed Type Atorvastatin [Lipitor] 40 mg PO HS 12/05/15 08/27/22 History amLODIPine [Norvasc] 10 mg PO HS 12/05/15 08/27/22 History Cholecalciferol [Vitamin D3 (25 50 mcg PO DAILY 08/27/22 08/27/22 History Mcg = 1000 Iu)] Cholestyramine (with Sugar) 4 gm PO BID 08/27/22 08/27/22 History [Cholestyramine Packet] Multivit-Min/FA/Lycopen/Lutein 1 tab PO DAILY 08/27/22 08/27/22 History [Centrum Silver Tablet] [place]-3 500mg 1 cap PO Q48H 08/27/22 08/27/22 History Saw [place] 450mg 1 cap PO AC-BID 08/27/22 08/27/22 History Vitamin E (Dl,Tocopheryl Acet) 400 unit PO W/SUPPER 08/27/22 08/27/22 History [Vitamin E (400 Iu = 180 mg)] Vits A,C,E/Lutein/Minerals 1 tab PO DAILY 08/27/22 08/27/22 History [Ocuvite with Lutein Tablet] Sodium Bicarbonate Tab 650 mg PO BID #0 tab 08/29/22 Rx Tamsulosin [Flomax] 0.4 mg PO PC-SUPPER #30 cap 08/29/22 Rx Allergies Allergy/AdvReac Type Severity Reaction Status Date / Time No Known Allergies Allergy Verified 08/27/22 12:52 Surgical - Exam Vital Signs Temp Pulse Resp BP Pulse Ox 97.7 F 81 18 102/62 98 08/27/22 08:45 08/27/22 08:45 08/27/22 08:45 08/27/22 08:45 08/27/22 08:45 General: Well developed, well nourished. No acute distress. HEENT: Head is atraumatic, normocephalic. Lungs: Respirations even and nonlabored. Abdomen/GI: Soft, non-distended. No guarding, rigidity, or abdominal tenderness. : Lee catheter in place draining clear yellow urine. Skin: Jaundiced, Warm and dry Neurologic: Alert and oriented 3, CN II-XII grossly intact. No focal deficits. Psychiatric: Appropriate mood and affect. Results - Labs 08/28/22 05:58 08/29/22 06:40 Abnormal Lab Results - Last 24 Hours (Table) 08/28/22 08/28/22 08/29/22 Range/Units 05:58 05:58 06:40 RBC 3.44 L (4.40-5.60) X 10*6/uL Hgb 10.2 L (13.0-17.0) g/dL Hct 31.0 L (39.6-50.0) % RDW 18.6 H (11.5-14.5) % Lymphocytes # 0.68 L (0.90-5.00) X 10*3/uL Monocytes # 1.58 H (0.20-1.00) X 10*3/uL Sodium 132 L 136 L (135-145) mmol/L Carbon Dioxide 17.5 L 17 L (20.0-27.5) mmol/L BUN 58.7 H 38 H (9.0-27.0) mg/dL Creatinine 2.3 H 1.28 H (0.6-1.5) mg/dL Est GFR (CKD-EPI)AfAm 30.8 L (60.0-200.0) Est GFR (CKD-EPI)NonAf 26.6 L (60.0-200.0) BUN/Creatinine Ratio 25.52 H (12.00-20.00) Ratio Calcium 7.8 L 7.4 L (8.7-10.3) mg/dL Magnesium 2.4 H (1.6-2.3) mg/dL Diabetes panel 08/28/22 08/29/22 Range/Units 05:58 06:40 Sodium 132 L 136 L (135-145) mmol/L Potassium 4.7 4.5 (3.5-5.5) mmol/L Chloride 101 107 (96-109) mmol/L Carbon Dioxide 17.5 L 17 L (20.0-27.5) mmol/L BUN 58.7 H 38 H (9.0-27.0) mg/dL Creatinine 2.3 H 1.28 H (0.6-1.5) mg/dL Glucose 90 78 (70-110) mg/dL Calcium 7.8 L 7.4 L (8.7-10.3) mg/dL Calcium panel 08/28/22 08/29/22 Range/Units 05:58 06:40 Calcium 7.8 L 7.4 L (8.7-10.3) mg/dL Pituitary panel 08/28/22 08/29/22 Range/Units 05:58 06:40 Sodium 132 L 136 L (135-145) mmol/L Potassium 4.7 4.5 (3.5-5.5) mmol/L Chloride 101 107 (96-109) mmol/L Carbon Dioxide 17.5 L 17 L (20.0-27.5) mmol/L BUN 58.7 H 38 H (9.0-27.0) mg/dL Creatinine 2.3 H 1.28 H (0.6-1.5) mg/dL Glucose 90 78 (70-110) mg/dL Calcium 7.8 L 7.4 L (8.7-10.3) mg/dL Adrenal panel 08/28/22 08/29/22 Range/Units 05:58 06:40 Sodium 132 L 136 L (135-145) mmol/L Potassium 4.7 4.5 (3.5-5.5) mmol/L Chloride 101 107 (96-109) mmol/L Carbon Dioxide 17.5 L 17 L (20.0-27.5) mmol/L BUN 58.7 H 38 H (9.0-27.0) mg/dL Creatinine 2.3 H 1.28 H (0.6-1.5) mg/dL Glucose 90 78 (70-110) mg/dL Calcium 7.8 L 7.4 L (8.7-10.3) mg/dL - Imaging US - kidney/bladder: report reviewed Assessment and Plan Assessment: The patient is sitting up in a chair and eating breakfast. He reports a history of BPH. He had been prescribed Flomax in the past, but had stopped taking it secondary to side effects including decreased libido. No history of bladder or renal cancer. No history of kidney stones. No previous urological surgeries. Kidney/bladder ultrasound performed on 08/28/22 without evidence of obstructive uropathy, Lee catheter in appropriate position, ight renal simple cyst. Serum creatinine continues to trend downward and is 1.28 today. Recommend maintaining Lee catheter for 2 weeks and following up in the office for urodyn amic testing. The patient may be discharged from a urological standpoint, with his Lee catheter. (1) Urinary retention Current Visit: Yes Status: Acute Code(s): R33.9 - RETENTION OF URINE, UNSPECIFIED SNOMED Code(s): 640843426 Plan: - Continue Flomax - Maintain Lee catheter for 2 weeks - Patient may be discharged from a urological standpoint - Follow up in our office with Dr. Wisdom for voiding trial and urodynamic testing Thank you for this consultation Impression and plan of care have been directed as dictated by the signing physician. Jen Velarde nurse practitioner acting as scribe for signing physician. Jen Velarde [facility] [id number] Email: [email or web address] I personally performed and participated in the history, physical, the decision m aking, I agree with the assessment and plan of FOOD COUNSELOR. Given the volume retention, acute kidney injury, most likely prolonged voiding dysfunction. Discussed with him we'll need urodynamics prior to catheter removal. We will arrange for outpatient urodynamics and cystoscopy 2 weeks from now
--- NOTE | 2022-08-29 10:54 | P.PN ---
Subjective Progress Note Date: 08/29/22 Principal diagnosis: Obstructive jaundice This a pleasant 77-year-old male presented to the emergency department this morning with complaints of bladder distention and urinary retention since last week Saturday. Patient was recently seen by Dr. Donato in outpatient setting for jaundice and sent down to [facility] for biliary obstructive jaundice to undergo ERCP and EUS. Apparently there was concern for a 2 cm mass seen on EUS, they were unable to insert stent. Patient was scheduled to go back to [facility] to see their interventional radiologist. Concern for pancreatic carcinoma. Patient states he currently is feeling better, apparently Lee catheter was inserted and he had approximately 3 L of urine output. Patient states he's had a decreased appetite, some fatigue. He denies any nausea or vomiting. Denies any abdominal pain. Last bowel movement was today. Denies any ascites and occasionally gets lower extremity swelling in the evenin gs. He denies any previous history of urinary retention. On admission he was noted to have acute kidney injury. Gastroenterology was consulted for hyperbilirubinemia, concern for pancreatic carcinoma. Labs WBC 12.6 hemoglobin 11.9 hematocrit 35 platelet count 195,000 sodium 131 potassium 5.0 BUN 87 creatinine 4.4 glucose 105 total bilirubin 20.0 AST 150 ALT 78 alkaline phosphatase 465 08/29/2022: Patient seen and examined today as a follow-up. Patient was admitted for urinary retention with acute kidney injury now improving. Repeat BUN 38 creatinine 1.28. Patient was seen by urology who recommends continuing Flomax and maintaining indwelling Lee catheter for 2 weeks with follow-up. Patient also seen by nephrology who has cleared patient for discharge. Patient without any abdominal pain, nausea or vomiting. Good urine output. Objective - Vital Signs Vital signs: Vital Signs Temp 98.7 F 08/29/22 01:35 Pulse 91 08/29/22 01:35 Resp 18 08/29/22 01:35 BP 125/70 08/29/22 01:35 Pulse Ox 98 08/29/22 01:35 FiO2 Intake & Output 08/28/22 08/29/22 08/29/22 18:59 06:59 18:59 Intake Total 1490 Output Total 500 2400 Balance -500 -910 Weight 99.79 kg Intake: Intake, IV Titration 900 Amount Sodium Chloride 0.9% 1, 900 000 ml @ 75 mls/hr IV . [id number] [facility] Rx#:[id number] Oral 590 Output: Urine 500 2400 Other: Voiding Method Indwelling Catheter Indwelling Catheter # Voids 2 # Bowel Movements 3 - Exam General appearance: The patient is alert, oriented, appears in no acute distress. HET: Head is normocephalic and atraumatic. Conjunctiva pink. Sclera deeply icteric. Neck: Supple without lymphadenopathy. Abdomen: Soft, nontender, nondistended with bowel sounds. No guarding or rigidity. Extremities: Normal skin color and turgor. No pedal edema Skin: No rashes, jaundice Neurological: No focal deficits. Alert and oriented. - Labs CBC & Chem 7: 08/28/22 05:58 08/29/22 06:40 Labs: Abnormal Lab Results - Last 24 Hours (Table) 08/28/22 08/28/22 Range/Units 05:58 05:58 RBC 3.44 L (4.40-5.60) X 10*6/uL Hgb 10.2 L (13.0-17.0) g/dL Hct 31.0 L (39.6-50.0) % RDW 18.6 H (11.5-14.5) % Lymphocytes # 0.68 L (0.90-5.00) X 10*3/uL Monocytes # 1.58 H (0.20-1.00) X 10*3/uL Sodium 132 L (135-145) mmol/L Carbon Dioxide 17.5 L (20.0-27.5) mmol/L BUN 58.7 H (9.0-27.0) mg/dL Creatinine 2.3 H (0.6-1.5) mg/dL Est GFR (CKD-EPI)AfAm 30.8 L (60.0-200.0) Est GFR (CKD-EPI)NonAf 26.6 L (60.0-200.0) BUN/Creatinine Ratio 25.52 H (12.00-20.00) Ratio Calcium 7.8 L (8.7-10.3) mg/dL Assessment and Plan (1) Hyperbilirubinemia Narrative/Plan: This is a 77-year-old male who recently established with Dr. Donato in the outpatient setting for jaundice. Patient was recently sent on to [facility] to gastroenterology for concerns of biliary obstructive jaundice. Patient underwent ERCP and EUS, approximate 2 cm mass was found however biliary stent was unable to be placed. Concerns for pancreatic carcinoma. Patient supposed to follow-up this week with [facility] interventional radiologist for possible stent placement. However over the last 5 days patient has been unable to urinate. Patient was admitted with urinary retention and acute kidney injury. Patient is stable from a gastroenterology perspective. Once urinary retention improves and acute kidney injury resolved patient will follow up outpatient with [facility]. Current Visit: Yes Status: Acute Code(s): E80.6 - OTHER DISORDERS OF BILIRUBIN METABOLISM SNOMED Code(s): 41543387 (2) MELVIN (acute kidney injury) Narrative/Plan: Nephrology following. Improving, patient has been cleared for discharge from nephrology. Current Visit: Yes Status: Acute Code(s): N17.9 - ACUTE KIDNEY FAILURE, UNSPECIFIED SNOMED Code(s): 18880365 (3) Urinary retention Narrative/Plan: Urology following, patient is cleared from urology for discharge with follow-up in 2-3 weeks with indwelling Lee catheter. Current Visit: Yes Status: Acute Code(s): R33.9 - RETENTION OF URINE, UNS PECIFIED SNOMED Code(s): 562536449 Plan: 1. Continue symptomatic and supportive care 2. Continue recommendations from nephrology 3. Heart healthy diet 4. No plans on endoscopic evaluation. Patient is established with [facility] Dr. León for biliary obstructive jaundice. Patient to follow-up as planned with [facility] in next 1-2 days Thank you for this consultation, the patient is cleared for discharge from gastroenterology. Dr. Jony Donato I agree with the dictator's note, documented as a scribe by Johanna Borges
--- NOTE | 2022-08-29 11:08 | P.PN ---
Subjective Patient is seen in follow-up for acute kidney injury. Renal function improving. Nonoliguric. Has Lee catheter for urinary retention. Oral intake is good. Receiving IV fluids. Vital signs are stable. General: No acute distress. HEENT: Head exam is unremarkable. LUNGS: No audible rhonchi or wheezes. HEART: Rate and Rhythm are regular. ABDOMEN: Soft, obese. EXTREMITITES: No edema. Jaundice noted. Objective - Vital Signs Vital signs: Vital Signs Temp 97.6 F 08/29/22 07:45 Pulse 70 08/29/22 07:45 Resp 18 08/29/22 07:45 BP 137/73 08/29/22 07:45 Pulse Ox 98 08/29/22 07:45 FiO2 Intake & Output 08/28/22 08/29/22 08/29/22 18:59 06:59 18:59 Intake Total 1490 Output Total 500 2400 Balance -500 -910 Weight 99.79 kg Intake: Intake, IV Titration 900 Amount Sodium Chloride 0.9% 1, 900 000 ml @ 75 mls/hr IV . [id number] [facility] Rx#:[id number] Oral 590 Output: Urine 500 2400 Other: Voiding Method Indwelling Catheter Indwelling Catheter Indwelling Catheter # Voids 2 # Bowel Movements 3 - Labs CBC & Chem 7: 08/28/22 05:58 08/29/22 06:40 Labs: Abnormal Lab Results - Last 24 Hours (Table) 08/28/22 08/28/22 08/29/22 Range/Units 05:58 05:58 06:40 RBC 3.44 L (4.40-5.60) X 10*6/uL Hgb 10.2 L (13.0-17.0) g/dL Hct 31.0 L (39.6-50.0) % RDW 18.6 H (11.5-14.5) % Lymphocytes # 0.68 L (0.90-5.00) X 10*3/uL Monocytes # 1.58 H (0.20-1.00) X 10*3/uL Sodium 132 L 136 L (135-145) mmol/L Carbon Dioxide 17.5 L 17 L (20.0-27.5) mmol/L BUN 58.7 H 38 H (9.0-27.0) mg/dL Creatinine 2.3 H 1.28 H (0.6-1.5) mg/dL Est GFR (CKD-EPI)AfAm 30.8 L (60.0-200.0) Est GFR (CKD-EPI)NonAf 26.6 L (60.0-200.0) BUN/Creatinine Ratio 25.52 H (12.00-20.00) Ratio Calcium 7.8 L 7.4 L (8.7-10.3) mg/dL Magnesium 2.4 H (1.6-2.3) mg/dL Assessment and Plan Plan: Assessment: 1. Acute kidney injury secondary to urinary retention. Creatinine 4.44 on admission and is 1.28 today. Baseline creatinine near 1. 2. Metabolic acidosis secondary to acute kidney and IV fluids. On oral bicarbonate. 3. Urinary retention status post Lee catheter placement. On Flomax. Urology following. No hydronephrosis noted. 4. Recently diagnosed pancreatic cancer. GI following. 5. Hyponatremia secondary to urinary retention. Improved. 6. Benign hypertension. Controlled. Plan: Hep-Lock IV fluids. Patient to be discharged with Lee catheter per urology.
--- NOTE | 2022-08-29 16:17 | P.DS ---
Providers Date of admission: 08/27/22 14:05 Expected date of discharge: 08/29/22 Attending physician: Feliciano Johnson MD Consults: 08/27/22 14:03 Consult Physician Urgent Consulting Provider: Frankie Kennedy Consult Reason/Comments: soledad, urinary retention Do you want consulting provider notified?: Yes Consult Physician Urgent Consulting Provider: Millie Donato Consult Reason/Comments: pancreatic cancer Do you want consulting provider notified?: Yes 08/28/22 16:03 Consult Physician Routine Consulting Provider: Emeka Hernandez Consult Reason/Comments: urinary retention Do you want consulting provider notified?: Yes Primary care physician: Abril Nolasco [facility] Course: Final Diagnoses: Acute renal failure secondary to urinary retention, Lee catheter placed, impro ving. Hyperbilirubinemia with biliary obstructive jaundice Hyponatremia secondary to urinary retention, improving Metabolic acidosis secondary to acute renal failure, on oral bicarbonate Workup in progress for Pancreatic cancer at [facility], biliary stent placement pending. Hospital course:This is a pleasant 77-year-old gentleman with past medical history of hypertension, hyperlipidemia, BPH, biliary obstructive jaundice, recently-last week at [facility] for ERCP/stent placement. Suspicious for pancreatic carcinoma; a mass seen on EUS and they are unable to proceed with stent placement. Biopsy pending. Patient is scheduled to return to [facility] with interventional radiology, Dr León, for biliary stent placement. Reports decreased appetite ,denies nausea ,vomiting or abdominal pain. Positive bowel movement yesterday. Reports his urine became very dark, along with pauline colored stools and eventually was unable to urinate over the last 5 days.Afebrile WBC 12 .6-now normalized, hemoglobin 10.2, hematocrit 31, platelets 186, sodium 132, potassium 4.7 bicarb 17.5. On admission BUN 87, creatinine 4.44, improving ,dedreased to 58.7/2.3. Total bilirubin 20.0 AST 150 ALT 78 alkaline phosphatase 465.UA negative, coronavirus not detected. Lee catheter placed, receiving IV fluid hydration. Maintained on Flomax with Lee catheter present. Renal function improving with BUN 38, creatinine 1.28. Urology recommending Lee catheter be maintained for 2 weeks. Positive appetite. Denies any nausea vomiting or diarrhea. Reports his stools have returned to normal. Denies abdominal pain. Less jaundiced. Sitting up in chair. Denies chest pain, palpitations or shortness of breath.Cleared by GI, urology and nephrology for discharge.Antihypertensives remain on hold as per nephrology. Patient is established with [facility] Dr. León for biliary obstructive jaundice. Patient to follow-up as planned with [facility] in next 1-2 days. Patient will be discharged home today in a stable condition with guarded prognosis. The impression and plan of care has been dictated as directed. : I performed a history and examination of this patient, discussed the same with the dictator. I agree with the dictator's note ,documented as a scribe. Any additional findings or plans will be noted. Patient Condition at Discharge: Stable Plan - Discharge Summary Discharge Rx Participant: No New Discharge Prescriptions: New Sodium Bicarbonate Tab 650 mg PO BID #0 tab Tamsulosin [Flomax] 0.4 mg PO PC-SUPPER #30 cap Continue amLODIPine [Norvasc] 10 mg PO HS Atorvastatin [Lipitor] 40 mg PO HS Vitamin E (Dl,Tocopheryl Acet) [Vitamin E (400 Iu = 180 mg)] 400 unit PO W/SUPPER [place] 450mg 1 cap PO AC-BID Vits A,C,E/Lutein/Minerals [Ocuvite with Lutein Tablet] 1 tab PO DAILY Multivit-Min/FA/Lycopen/Lutein [Centrum Silver Tablet] 1 tab PO DAILY [place]-3 500mg 1 cap PO Q48H Cholecalciferol [Vitamin D3 (25 Mcg = 1000 Iu)] 50 mcg PO DAILY Cholestyramine (with Sugar) [Cholestyramine Packet] 4 gm PO BID Discontinued Losartan Potassium 100 mg PO DAILY Discharge Medication List Atorvastatin [Lipitor] 40 mg PO HS 12/05/15 [History] amLODIPine [Norvasc] 10 mg PO HS 12/05/15 [History] Cholecalciferol [Vitamin D3 (25 Mcg = 1000 Iu)] 50 mcg PO DAILY 08/27/22 [History] Cholestyramine (with Sugar) [Cholestyramine Packet] 4 gm PO BID 08/27/22 [Histo ry] Multivit-Min/FA/Lycopen/Lutein [Centrum Silver Tablet] 1 tab PO DAILY 08/27/22 [History] [place]-3 500mg 1 cap PO Q48H 08/27/22 [History] [place] 450mg 1 cap PO AC-BID 08/27/22 [History] Vitamin E (Dl,Tocopheryl Acet) [Vitamin E (400 Iu = 180 mg)] 400 unit PO W/SUPPER 08/27/22 [History] Vits A,C,E/Lutein/Minerals [Ocuvite with Lutein Tablet] 1 tab PO DAILY 08/27/22 [History] Sodium Bicarbonate Tab 650 mg PO BID #0 tab 08/29/22 [Rx] Tamsulosin [Flomax] 0.4 mg PO PC-SUPPER #30 cap 08/29/22 [Rx] Follow up Appointment(s)/Referral(s): Feliciano Johnson MD [STAFF PHYSICIAN] - 08/31/22 11:00 am (You will see Herbie be in the [place] office.) Enrrique Wisdom MD [STAFF PHYSICIAN] - 2 Weeks Patient Instructions/Handouts: Acute Kidney Injury (DC), How to Change a Catheter Drainage Bag (DC) Activity/Diet/Wound Care/Special Instructions: Antihypertensives remain on hold as per nephrology.GI arranging GI specialist appointment at [facility] this week. Discharge Disposition: HOME SELF-CARE
== END 2022-08-29 14:10 | disposition home or self-care (01) | DRG 682 ==
LOC: EC 08:40 → 5NMEDONC 14:05
PROVIDERS: ADMIT Family Medicine; ATTEND Family Medicine
DX: N17.9 Acute kidney failure, unspecified (principal); K83.1 Obstruction of bile duct; C25.9 Malignant neoplasm of pancreas, unspecified; E87.20 Acidosis, unspecified; E87.1 Hypo-osmolality and hyponatremia; Z20.822 Contact with and (suspected) exposure to COVID-19; I10 Essential (primary) hypertension; E78.5 Hyperlipidemia, unspecified; N28.1 Cyst of kidney, acquired; N40.1 Benign prostatic hyperplasia with lower urinary tract symptoms; R33.8 Other retention of urine; N32.89 Other specified disorders of bladder; Z79.899 Other long term (current) drug therapy; Z96.651 Presence of right artificial knee joint; Z87.891 Personal history of nicotine dependence
CPT/HCPCS: 36415; 51798; 76770; 80048; 80053; 81001; 83735; 85025; 87635; 96360; 96361; 96365; 99284; 99285

== ENCOUNTER 2022-09-10 09:13 | Inpatient (IN) | payer MEDICARE ==
--- NOTE | 2022-09-10 09:58 | ED ---
General Adult HPI - General Chief complaint: Weakness Stated complaint: Weakness Time Seen by Provider: 09/10/22 09:30 Source: patient, EMS, RN notes reviewed Mode of arrival: EMS Limitations: no limitations - History of Present Illness Initial comments: Patient is a pleasant 77-year-old male presenting to the emergency department with concerns with general weakness. Patient does have history of biliary duct obstruction secondary to a mass. Patient did have stent placed that did not work and had the area restented 5 days ago. Patient feels is working well at this time. No abdominal complaints. Color is returning to normal. Patient does have catheter secondary to urinary retention following procedure with anesthesia. Patient has been generally weak. Patient has been having diarrhea, last was 2 days ago. Patient is tolerating oral intake. Patient does not feel he is dehydrated. Patient has increased general weakness today and is unable to walk. No isolated area of weakness. Patient did fall however no injury. No sick.. No confusion. No visual change. - Related Data Home Medications Medication Instructions Recorded Confirmed Atorvastatin [Lipitor] 40 mg PO HS 12/05/15 09/10/22 amLODIPine [Norvasc] 10 mg PO HS 12/05/15 09/10/22 Cholecalciferol [Vitamin D3 (25 50 mcg PO DAILY 08/27/22 09/10/22 Mcg = 1000 Iu)] Cholestyramine (with Sugar) 4 gm PO BID 08/27/22 09/10/22 [Cholestyramine Packet] Multivit-Min/FA/Lycopen/Lutein 1 tab PO DAILY 08/27/22 09/10/22 [Centrum Silver Tablet] [place]-3 500mg 1 cap PO Q48H 08/27/22 09/10/22 Saw [place] 450mg 1 cap PO AC-BID 08/27/22 09/10/22 Vitamin E (Dl,Tocopheryl Acet) 400 unit PO W/SUPPER 08/27/22 09/10/22 [Vitamin E (400 Iu = 180 mg)] Vits A,C,E/Lutein/Minerals 1 tab PO DAILY 08/27/22 09/10/22 [Ocuvite with Lutein Tablet] Furosemide [Lasix] 20 mg PO DAILY 09/10/22 09/10/22 Previous Rx's Medication Instructions Recorded Sodium Bicarbonate Tab 650 mg PO BID #0 tab 08/29/22 Allergies Allergy/AdvReac Type Severity Reaction Status Date / Time No Known Allergies Allergy Verified 09/10/22 10:48 Review of Systems ROS Statement: Those systems with pertinent positive or pertinent negative responses have been documented in the HPI. ROS Other: All systems not noted in ROS Statement are negative. Constitutional: Denies: fever Eyes: Denies: eye pain ENT: Denies: ear pain Respiratory: Denies: cough, dyspnea Cardiovascular: Denies: chest pain Endocrine: Denies: fatigue Gastrointestinal: Denies: nausea Genitourinary: Denies: dysuria Musculoskeletal: Denies: back pain Skin: Denies: rash Neurological: Reports: as per HPI, weakness. Denies: headache, confusion Past Medical History Past Medical History: Hyperlipidemia, Hypertension Additional Past Medical History / Comment(s): currently jaundiced, current urinary retention, pancreatic cancer diagnosed on 08/22/22 at [facility] History of Any Multi-Drug Resistant Organisms: None Reported Past Surgical History: Joint Replacement Additional Past Surgical History / Comment(s): RIGHT KNEE REPLACED. Past Anesthesia/Blood Transfusion Reactions: No Reported Reaction Additional Past Anesthesia/Blood Transfusion Reaction / Comment(s): never received blood before Past Psychological History: No Psychological Hx Reported Smoking Status: Never smoker Past Alcohol Use History: Occasional Past Drug Use History: None Reported - Past Family History Brother(s) Additional Family Medical History / Comment(s): gallstones Father Additional Family Medical History / Comment(s): prostate cancer, from "old age" Mother Additional Family Medical History / Comment(s): from PE after open heart surgery. General Exam Limitations: no limitations General appearance: alert, in no apparent distress Head exam: Present: normocephalic Eye exam: Present: scleral icterus ENT exam: Present: mucous membranes dry Neck exam: Present: normal inspection Respiratory exam: Present: normal lung sounds bilaterally Cardiovascular Exam: Present: regular rate, normal rhythm GI/Abdominal exam: Present: soft. Absent: distended, tenderness, guarding, rebound, rigid Extremities exam: Present: pedal edema (+1 bilateral). Absent: calf tenderness Neurological exam: Present: alert, oriented X3, CN II-XII intact. Absent: motor sensory deficit Expanded Neurological exam: Present: protecting the airway Speech: Present: fluid speech Cranial nerves: EOM's Intact: Normal Motor strength exam: RUE: 5, LUE: 5, RLE: 5, LLE: 5 Eye Response: (4) open spontaneously Motor Response: (6) obeys commands Verbal Response: (5) oriented Psychiatric exam: Present: normal affect, normal mood Skin exam: Present: other (Jaundice appearance) Course Vital Signs 09/10/22 09/10/22 09:16 11:23 Temperature 97.2 F L Pulse Rate 92 80 Respiratory 19 18 Rate Blood Pressure 146/71 189/89 O2 Sat by Pulse 98 97 Oximetry EKG Findings - EKG Results: EKG: interpreted by ERMD (Q waves V1, V3/v4), sinus rhythm, normal axis, normal ST/T Medical Decision Making - Medical Decision Making Was pt. sent in by a medical professional or institution (, PA, PARTS WASHER, urgent care, hospital, or jail...) When possible be specific @ -No Did you speak to anyone other than the patient for history (EMS, parent, family, police, friend...)? What history was obtained from this source @ -Family is present who helps provide history including previous history regarding biliary stent Did you review nursing and triage notes (agree or disagree)? Why? @ -I reviewed and agree with nursing and triage notes Were old charts reviewed (outside hosp., previous admission, EMS record, old EKG, old radiological studies, urgent care reports/EKG's, jail records)? Report findings @ -No old charts were reviewed Differential Diagnosis (chest pain, altered mental status, abdominal pain women, abdominal pain men, vaginal bleeding, weakness, fever, dyspnea, syncope, headache, dizziness, GI bleed, back pain, seizure, CVA, palpatations, mental health)? @ -Differential Weakness: Hypoglycemia, shock, sepsis, hyponatremia, anemia, infection, NE, ETOH, adverse medicine reaction, overdose, stroke, this is not meant to be an all-inclusive list. EKG interpreted by me (3pts min.). @ -As above X-rays interpreted by me (1pt min.). @ -Chest x-ray interpreted by myself reveals no acute process CT interpreted by me (1pt min.). @ -Report reviewed U/S interpreted by me (1pt. min.). @ -None done What testing was considered but not performed or refused? (CT, X-rays, U/S, labs)? Why? @ -None What meds were considered but not given or refused? Why? @ -None Did you discuss the management of the patient with other professionals (professionals i.e. , PA, PARTS WASHER, lab, RT, psych nurse, dialysis social worker, bread wrapper operator, teacher, supply officer, dependency case manager)? Give summary @ -Case was discussed with Dr. Gabriel, who will admit covering Dr. Nolasco. Was smoking cessation discussed for >3mins.? @ -No Was critical care preformed (if so, how long)? @ -No Were there social determinants of health that impacted care today? How? (Homelessness, low income, unemployed, alcoholism, drug addiction, transportation, low edu. Level, literacy, decrease access to med. care, longterm, rehab)? @ -No Was there de-escalation of care discussed even if they declined (Discuss DNR or withdrawal of care, Hospice)? DNR status @ -No What co-morbidities impacted this encounter? (DM, HTN, Smoking, COPD, CAD, Cancer, CVA, ARF, Chemo, Hep., AIDS, mental health diagnosis, sleep apnea, morbid obesity)? @ -Patient has recent biliary obstruction and mass with recent hospitalization. Was patient admitted / discharged? Hospital course, mention meds given and ro yola, prescriptions, significant lab abnormalities, going to OR and other pertinent info. @ -Patient reevaluated. Patient and family updated. Patient will be admitted to the hospital for IV fluid hydration Undiagnosed new problem with uncertain prognosis? @ -No Drug Therapy requiring intensive monitoring for toxicity (Heparin, Nitro, Insulin, Cardizem)? @ -No Were any procedures done? @ -No Diagnosis/symptom? @ -Dehydration Acute, or Chronic, or Acute on Chronic? @ -Acute Uncomplicated (without systemic symptoms) or Complicated (systemic symptoms)? @ -Complicated with weakness and inability to walk Side effects of treatment? @ -No Exacerbation, Progression, or Severe Exacerbation? @ -No Poses a threat to life or bodily function? How? (Chest pain, USA, NE, pneumonia, PE, COPD, DKA, ARF, appy, cholecystitis, CVA, Diverticulitis, Homicidal, Suicid al, threat to staff... and all critical care pts) @ -No - Lab Data Result diagrams: 09/10/22 10:06 09/10/22 10:06 Lab Results 09/10/22 09/10/22 09/10/22 Range/Units 10:02 10:06 10:06 WBC 15.1 H (3.8-10.6) k/uL RBC 3.18 L (4.30-5.90) m/uL Hgb 10.1 L (13.0-17.5) gm/dL Hct 29.3 L (39.0-53.0) % MCV 92.0 (80.0-100.0) fL MCH 31.9 (25.0-35.0) pg MCHC 34.6 (31.0-37.0) g/dL RDW 16.5 H (11.5-15.5) % Plt Count 339 (150-450) k/uL MPV 8.5 Neutrophils % 91 % Lymphocytes % 4 % Monocytes % 4 % Eosinophils % 0 % Basophils % 0 % Neutrophils # 13.8 H (1.3-7.7) k/uL Lymphocytes # 0.6 L (1.0-4.8) k/uL Monocytes # 0.5 (0-1.0) k/uL Eosinophils # 0.0 (0-0.7) k/uL Basophils # 0.0 (0-0.2) k/uL Anisocytosis Slight PT 11.0 (9.0-12.0) sec INR 1.1 (<1.2) APTT 19.6 L (22.0-30.0) sec Sodium (137-145) mmol/L Potassium (3.5-5.1) mmol/L Chloride (98-107) mmol/L Carbon Dioxide (22-30) mmol/L Anion Gap mmol/L BUN (9-20) mg/dL Creatinine (0.66-1.25) mg/dL Est GFR (CKD-EPI)AfAm (>60 ml/min/1.73 sqM) Est GFR (CKD-EPI)NonAf (>60 ml/min/1.73 sqM) Glucose (74-99) mg/dL POC Glucose (mg/dL) 211 H (70-110) mg/dL POC Glu Physical Aerodynamicist ID [facility] Plasma Lactic Acid Mehdi (0.7-2.0) mmol/L Calcium (8.4-10.2) mg/dL Phosphorus (2.5-4.5) mg/dL Magnesium (1.6-2.3) mg/dL Total Bilirubin (0.2-1.3) mg/dL AST (17-59) U/L ALT (4-49) U/L Alkaline Phosphatase (38-126) U/L Troponin I (0.000-0.034) ng/mL Total Protein (6.3-8.2) g/dL Albumin (3.5-5.0) g/dL Urine Color Urine Appearance (Clear) Urine pH (5.0-8.0) Ur Specific [place] (1.001-1.035) Urine Protein (Negative) Urine Glucose (UA) (Negative) Urine Ketones (Negative) Urine Blood (Negative) Urine Nitrite (Negative) Urine Bilirubin (Negative) Urine Urobilinogen (<2.0) mg/dL Ur Leukocyte Esterase (Negative) Urine RBC (0-5) /hpf Urine WBC (0-5) /hpf Ur Squamous Epith Cells (0-4) /hpf Amorphous Sediment (None) /hpf Urine Mucus (None) /hpf 09/10/22 09/10/22 09/10/22 Range/Units 10:06 10:06 10:06 WBC (3.8-10.6) k/uL RBC (4.30-5.90) m/uL Hgb (13.0-17.5) gm/dL Hct (39.0-53.0) % MCV (80.0-100.0) fL MCH (25.0-35.0) pg MCHC (31.0-37.0) g/dL RDW (11.5-15.5) % Plt Count (150-450) k/uL MPV Neutrophils % % Lymphocytes % % Monocytes % % Eosinophils % % Basophils % % Neutrophils # (1.3-7.7) k/uL Lymphocytes # (1.0-4.8) k/uL Monocytes # (0-1.0) k/uL Eosinophils # (0-0.7) k/uL Basophils # (0-0.2) k/uL Anisocytosis PT (9.0-12.0) sec INR (<1.2) APTT (22.0-30.0) sec Sodium 134 L (137-145) mmol/L Potassium 5.2 H (3.5-5.1) mmol/L Chloride 107 (98-107) mmol/L Carbon Dioxide 17 L (22-30) mmol/L Anion Gap 10 mmol/L BUN 107 H* (9-20) mg/dL Creatinine 1.60 H (0.66-1.25) mg/dL Est GFR (CKD-EPI)AfAm 48 (>60 ml/min/1.73 sqM) Est GFR (CKD-EPI)NonAf 41 (>60 ml/min/1.73 sqM) Glucose 189 H (74-99) mg/dL POC Glucose (mg/dL) (70-110) mg/dL POC Glu Physical Aerodynamicist ID Plasma Lactic Acid Mehdi 2.1 H* (0.7-2.0) mmol/L Calcium 7.5 L (8.4-10.2) mg/dL Phosphorus 6.3 H (2.5-4.5) mg/dL Magnesium 2.6 H (1.6-2.3) mg/dL Total Bilirubin 4.0 H (0.2-1.3) mg/dL AST 2767 H (17-59) U/L ALT 476 H (4-49) U/L Alkaline Phosphatase 282 H (38-126) U/L Troponin I 0.037 H* (0.000-0.034) ng/mL Total Protein 5.3 L (6.3-8.2) g/dL Albumin 2.5 L (3.5-5.0) g/dL Urine Color Urine Appearance (Clear) Urine pH (5.0-8.0) Ur Specific [place] (1.001-1.035) Urine Protein (Negative) Urine Glucose (UA) (Negative) Urine Ketones (Negative) Urine Blood (Negative) Urine Nitrite (Negative) Urine Bilirubin (Negative) Urine Urobilinogen (<2.0) mg/dL Ur Leukocyte Esterase (Negative) Urine RBC (0-5) /hpf Urine WBC (0-5) /hpf Ur Squamous Epith Cells (0-4) /hpf Amorphous Sediment (None) /hpf Urine Mucus (None) /hpf 09/10/22 Range/Units 10:30 WBC (3.8-10.6) k/uL RBC (4.30-5.90) m/uL Hgb (13.0-17.5) gm/dL Hct (39.0-53.0) % MCV (80.0-100.0) fL MCH (25.0-35.0) pg MCHC (31.0-37.0) g/dL RDW (11.5-15.5) % Plt Count (150-450) k/uL MPV Neutrophils % % Lymphocytes % % Monocytes % % Eosinophils % % Basophils % % Neutrophils # (1.3-7.7) k/uL Lymphocytes # (1.0-4.8) k/uL Monocytes # (0-1.0) k/uL Eosinophils # (0-0.7) k/uL Basophils # (0-0.2) k/uL Anisocytosis PT (9.0-12.0) sec INR (<1.2) APTT (22.0-30.0) sec Sodium (137-145) mmol/L Potassium (3.5-5.1) mmol/L Chloride (98-107) mmol/L Carbon Dioxide (22-30) mmol/L Anion Gap mmol/L BUN (9-20) mg/dL Creatinine (0.66-1.25) mg/dL Est GFR (CKD-EPI)AfAm (>60 ml/min/1.73 sqM) Est GFR (CKD-EPI)NonAf (>60 ml/min/1.73 sqM) Glucose (74-99) mg/dL POC Glucose (mg/dL) (70-110) mg/dL POC Glu Physical Aerodynamicist ID Plasma Lactic Acid Mehdi (0.7-2.0) mmol/L Calcium (8.4-10.2) mg/dL Phosphorus (2.5-4.5) mg/dL Magnesium (1.6-2.3) mg/dL Total Bilirubin (0.2-1.3) mg/dL AST (17-59) U/L ALT (4-49) U/L Alkaline Phosphatase (38-126) U/L Troponin I (0.000-0.034) ng/mL Total Protein (6.3-8.2) g/dL Albumin (3.5-5.0) g/dL Urine Color Light Red Urine Appearance Cloudy (Clear) Urine pH 5.0 (5.0-8.0) Ur Specific [place] 1.010 (1.001-1.035) Urine Protein 1+ H (Negative) Urine Glucose (UA) Negative (Negative) Urine Ketones Negative (Negative) Urine Blood Large H (Negative) Urine Nitrite Negative (Negative) Urine Bilirubin Negative (Negative) Urine Urobilinogen <2.0 (<2.0) mg/dL Ur Leukocyte Esterase Negative (Negative) Urine RBC 1 (0-5) /hpf Urine WBC 4 (0-5) /hpf Ur Squamous Epith Cells 1 (0-4) /hpf Amorphous Sediment Occasional H (None) /hpf Urine Mucus Rare H (None) /hpf Disposition Clinical Impression: Dehydration, Uremia Disposition: ADMITTED IP TO THIS HOSP Is patient prescribed a controlled substance at d/c from ED?: No Referrals: Abril Nolasco DO [Primary Care Provider] - 1-2 days Time of Disposition: 11:40
[2022-09-10 10:03] LABS: Glucose,Whole Blood 211 mg/dL (70-110)
[2022-09-10 10:19] LABS: Anisocytosis Slight; Basophils % (A) 0 %; Eosinophils % (A) 0 %; HCT 29.3 % (39.0-53.0); HGB 10.1 gm/dL (13.0-17.5); Lymphocytes # (A) 0.6 k/uL (1.0-4.8); Lymphocytes % (A) 4 %; MCH 31.9 pg (25.0-35.0); MCHC 34.6 g/dL (31.0-37.0); Mean Platelet Volume 8.5; Monocytes # (A) 0.5 k/uL (0-1.0); Monocytes % (A) 4 %; Neutrophils # (A) 13.8 k/uL (1.3-7.7); Neutrophils % (A) 91 %; Platelet Count 339 k/uL (150-450); RBC 3.18 m/uL (4.30-5.90); RDW 16.5 % (11.5-15.5); WBC 15.1 k/uL (3.8-10.6)
--- NOTE | 2022-09-10 10:29 | CT ---
EXAMINATION TYPE: CT brain wo con CT DLP: 1231.4 mGycm, Automated exposure control for dose reduction was used. DATE OF EXAM: 09/10/2022 10:22 AM COMPARISON: None. CLINICAL INDICATION:Male, 77 years old with history of weakness, weakness TECHNIQUE: Brain: Multiple axial CT images of the brain were obtained without IV contrast. Coronal and sagittal reformats reviewed. FINDINGS: Brain: Extra-axial spaces: No abnormal extra-axial fluid collections. Ventricular system: Within normal limits Cerebral parenchyma: Cerebral atrophy. No acute intraparenchymal hemorrhage or mass effect. The spencer -white junction is well differentiated. Scattered hypoattenuating areas are seen within the white mat ter. Cerebellum: Unremarkable. Mass effect: No evidence of midline shift. Intracranial vasculature: Atherosclerotic calcifications of the intracranial vessels. Soft tissues: Normal. Calvarium/osseous structures: No depressed skull fracture. Paranasal sinuses and mastoid air cells: Mild scattered paranasal sinus disease. Visualized orbits: Bilateral aphakia IMPRESSION: 1. No acute intracranial process. 2. Nonspecific white matter changes, likely secondary to chronic small vessel ischemic disease.
--- NOTE | 2022-09-10 10:34 | XR ---
EXAMINATION TYPE: XR chest 2V DATE OF EXAM: 09/10/2022 COMPARISON: NONE HISTORY: Weakness TECHNIQUE: Frontal and lateral views of the chest are obtained. FINDINGS: The heart size is at the upper limits of normal to borderline enlarged. The cardiomediasti nal silhouette and pulmonary vasculature are within normal limits. There is no focal consolidation, s ignificant pleural effusion, or pneumothorax. There are atheromatous changes of the aorta. There are mild multilevel degenerative change of the thoracic spine. IMPRESSION: No acute cardiopulmonary process.
[2022-09-10 10:35] LABS: Albumin 2.5 g/dL (3.5-5.0); Calcium 7.5 mg/dL (8.4-10.2); Magnesium 2.6 mg/dL (1.6-2.3); Phosphorus 6.3 mg/dL (2.5-4.5); Potassium 5.2 mmol/L (3.5-5.1); Total Protein 5.3 g/dL (6.3-8.2)
[2022-09-10 10:38] LABS: INR 1.1 (<1.2)
[2022-09-10 10:45] LABS: Partial Thromboplastin Time 19.6 sec (22.0-30.0)
[2022-09-10 11:32] LABS: Amorphous Sediment,Urine Occasional /hpf; Appearance,Urine Cloudy (Clear); Bilirubin,Urine Negative (Negative); Blood,Urine Large (Negative); Color,Urine Light Red; Glucose,Urine (UA) Negative (Negative); Ketones,Urine Negative (Negative); Leukocyte Esterase,Urine Negative (Negative); Mucus,Urine Rare /hpf; Nitrite,Urine Negative (Negative); Protein,Urine 1+ (Negative); RBC,Urine 1 /hpf (0-5); Squamous Epithelial Cell,Urine 1 /hpf (0-4); Urobilinogen,Urine <2.0 mg/dL (<2.0); WBC,Urine 4 /hpf (0-5)
[2022-09-10] MEDS ORDERED: NALOXONE 0.4 MG/ML 1 ML VIAL IV PRN (11:40)
[2022-09-10] MEDS ORDERED: SODIUM CHLORIDE 0.9% 500 ML 500 ML IV STA (11:41)
[2022-09-10] MEDS: SODIUM CHLORIDE 0.9% 1,000 ML IV SCH (12:59)
--- NOTE | 2022-09-10 14:14 | P.HPIM ---
History of Present Illness H&P Date: 09/10/22 History of present illness: This is a pleasant 77-year-old gentleman with past medical history of hypertension, hyperlipidemia, BPH, biliary obstructive jaundice, possible pancreatic carcinoma with recent biliary stent placement at [facility] who presented to the ER because of generalized weakness. Patient has recent biliary stent done. Patient stated that he had to have urinary catheter placed following procedure because of postoperative urinary retention. Patient was supposed to go to his urologist appointment today but this morning he felt very weak and tired. Stated that he was not having any diarrhea, denies any nausea or vomiting. Because generalized weakness, patient decided to come to ER. In the ER, lab work was done showed white count of 15.1, hemoglobin 10.1, platelet count 339, PT was 11, INR 1.1, sodium 134, potassium 5.2, BUN 107, creatinine 1.60. ER physician talked to Dr. Johnson and he agreed with inpatient admission. [facility] are covering Dr. Johnson for today REVIEW OF SYSTEMS: CONSTITUTIONAL: No fever, complaint of generalized weakness HEENT: No recent visual problems or hearing problems. Denied any sore throat. CARDIOVASCULAR: No chest pain, orthopnea, PND, no palpitations, no syncope. PULMONARY: No shortness of breath, no cough, no hemoptysis. GASTROINTESTINAL: No diarrhea, no nausea, no vomiting, no abdominal pain. NEUROLOGICAL: No headaches, complaining of weakness HEMATOLOGICAL: Denies any bleeding or petechiae. GENITOURINARY: Denies any burning micturition, frequency, or urgency. MUSCULOSKELETAL/RHEUMATOLOGICAL: Denies any joint pain, swelling, or any muscle pain. ENDOCRINE: Denies any polyuria or polydipsia. The rest of the 14-point review of systems is negative. PHYSICAL EXAMINATION: GENERAL: The patient is alert and oriented x3, not in any acute distress. Well developed, well nourished. HEENT: Pupils are round and equally reacting to light. EOMI. scleral icterus seen. Normocephalic, atraumatic. No pharyngeal erythema. No thyromegaly. CARDIOVASCULAR: S1 and S2 present. No murmurs, rubs, or gallops. PULMONARY: Chest is clear to auscultation, no wheezing or crackles. ABDOMEN: Soft, nontender, nondistended, normoactive bowel sounds. No palpable organomegaly. MUSCULOSKELETAL: No joint swelling or deformity. EXTREMITIES: No cyanosis, clubbing, or pedal edema. NEUROLOGICAL: Gross neurological examination did not reveal any focal deficits. SKIN: No rashes. Assessment and plan Acute renal failure Hyperkalemia Hyperphosphatemia Hyperbilirubinemia BPH Workup in progress for Pancreatic cancer at [facility], Plan; Monitor CMP Monitor CBC Strict I's and O's Daily weights continue IV fluids Trend LFTs Avoid nephrotoxic agents Bathhouse Attendant nephrology Avoid hypotension Resume home meds DC statins because of elevated LFTs DVT prophylaxis: Past Medical History Past Medical History: Hyperlipidemia, Hypertension Additional Past Medical History / Comment(s): currently jaundiced, current urinary retention, pancreatic cancer diagnosed on 08/22/22 at [facility] History of Any Multi-Drug Resistant Organisms: None Reported Past Surgical History: Joint Replacement Additional Past Surgical History / Comment(s): RIGHT KNEE REPLACED. Past Anesthesia/Blood Transfusion Reactions: No Reported Reaction Additional Past Anesthesia/Blood Transfusion Reaction / Comment(s): never received blood before Past Psychological History: No Psychological Hx Reported Smoking Status: Never smoker Past Alcohol Use History: Occasional Past Drug Use History: None Reported - Past Family History Brother(s) Additional Family Medical History / Comment(s): gallstones Father Additional Family Medical History / Comment(s): prostate cancer, from "old age" Mother Additional Family Medical History / Comment(s): from PE after open heart surgery. Medications and Allergies Home Medications Medication Instructions Recorded Confirmed Type Atorvastatin [Lipitor] 40 mg PO HS 12/05/15 09/10/22 History amLODIPine [Norvasc] 10 mg PO HS 12/05/15 09/10/22 History Cholecalciferol [Vitamin D3 (25 50 mcg PO DAILY 08/27/22 09/10/22 History Mcg = 1000 Iu)] Cholestyramine (with Sugar) 4 gm PO BID 08/27/22 09/10/22 History [Cholestyramine Packet] Multivit-Min/FA/Lycopen/Lutein 1 tab PO DAILY 08/27/22 09/10/22 History [Centrum Silver Tablet] [place]-3 500mg 1 cap PO Q48H 08/27/22 09/10/22 History Saw [place] 450mg 1 cap PO AC-BID 08/27/22 09/10/22 History Vitamin E (Dl,Tocopheryl Acet) 400 unit PO W/SUPPER 08/27/22 09/10/22 History [Vitamin E (400 Iu = 180 mg)] Vits A,C,E/Lutein/Minerals 1 tab PO DAILY 08/27/22 09/10/22 History [Ocuvite with Lutein Tablet] Sodium Bicarbonate Tab 650 mg PO BID #0 tab 08/29/22 09/10/22 Rx Furosemide [Lasix] 20 mg PO DAILY 09/10/22 09/10/22 History Allergies Allergy/AdvReac Type Severity Reaction Status Date / Time No Known Allergies Allergy Verified 09/10/22 10:48 Physical Exam Vitals: Vital Signs Temp Pulse Resp BP Pulse Ox 09/10/22 11:23 80 18 189/89 97 09/10/22 09:16 97.2 F L 92 19 146/71 98 Intake and Output 09/09/22 09/10/22 09/10/22 22:59 06:59 14:59 Other: Weight 106.594 kg Results CBC & Chem 7: 09/10/22 10:06 09/10/22 10:06 Labs: Abnormal Lab Results - Last 24 Hours (Table) 09/10/22 09/10/22 09/10/22 Range/Units 10:02 10:06 10:06 WBC 15.1 H (3.8-10.6) k/uL RBC 3.18 L (4.30-5.90) m/uL Hgb 10.1 L (13.0-17.5) gm/dL Hct 29.3 L (39.0-53.0) % RDW 16.5 H (11.5-15.5) % Neutrophils # 13.8 H (1.3-7.7) k/uL Lymphocytes # 0.6 L (1.0-4.8) k/uL APTT 19.6 L (22.0-30.0) sec Sodium (137-145) mmol/L Potassium (3.5-5.1) mmol/L Carbon Dioxide (22-30) mmol/L BUN (9-20) mg/dL Creatinine (0.66-1.25) mg/dL Glucose (74-99) mg/dL POC Glucose (mg/dL) 211 H (70-110) mg/dL Plasma Lactic Acid Mehdi (0.7-2.0) mmol/L Calcium (8.4-10.2) mg/dL Phosphorus (2.5-4.5) mg/dL Magnesium (1.6-2.3) mg/dL Total Bilirubin (0.2-1.3) mg/dL AST (17-59) U/L ALT (4-49) U/L Alkaline Phosphatase (38-126) U/L Troponin I (0.000-0.034) ng/mL Total Protein (6.3-8.2) g/dL Albumin (3.5-5.0) g/dL Urine Protein (Negative) Urine Blood (Negative) Amorphous Sediment (None) /hpf Urine Mucus (None) /hpf 09/10/22 09/10/22 09/10/22 Range/Units 10:06 10:06 10:06 WBC (3.8-10.6) k/uL RBC (4.30-5.90) m/uL Hgb (13.0-17.5) gm/dL Hct (39.0-53.0) % RDW (11.5-15.5) % Neutrophils # (1.3-7.7) k/uL Lymphocytes # (1.0-4.8) k/uL APTT (22.0-30.0) sec Sodium 134 L (137-145) mmol/L Potassium 5.2 H (3.5-5.1) mmol/L Carbon Dioxide 17 L (22-30) mmol/L BUN 107 H* (9-20) mg/dL Creatinine 1.60 H (0.66-1.25) mg/dL Glucose 189 H (74-99) mg/dL POC Glucose (mg/dL) (70-110) mg/dL Plasma Lactic Acid Mehdi 2.1 H* (0.7-2.0) mmol/L Calcium 7.5 L (8.4-10.2) mg/dL Phosphorus 6.3 H (2.5-4.5) mg/dL Magnesium 2.6 H (1.6-2.3) mg/dL Total Bilirubin 4.0 H (0.2-1.3) mg/dL AST 2767 H (17-59) U/L ALT 476 H (4-49) U/L Alkaline Phosphatase 282 H (38-126) U/L Troponin I 0.037 H* (0.000-0.034) ng/mL Total Protein 5.3 L (6.3-8.2) g/dL Albumin 2.5 L (3.5-5.0) g/dL Urine Protein (Negative) Urine Blood (Negative) Amorphous Sediment (None) /hpf Urine Mucus (None) /hpf 09/10/22 Range/Units 10:30 WBC (3.8-10.6) k/uL RBC (4.30-5.90) m/uL Hgb (13.0-17.5) gm/dL Hct (39.0-53.0) % RDW (11.5-15.5) % Neutrophils # (1.3-7.7) k/uL Lymphocytes # (1.0-4.8) k/uL APTT (22.0-30.0) sec Sodium (137-145) mmol/L Potassium (3.5-5.1) mmol/L Carbon Dioxide (22-30) mmol/L BUN (9-20) mg/dL Creatinine (0.66-1.25) mg/dL Glucose (74-99) mg/dL POC Glucose (mg/dL) (70-110) mg/dL Plasma Lactic Acid Mehdi (0.7-2.0) mmol/L Calcium (8.4-10.2) mg/dL Phosphorus (2.5-4.5) mg/dL Magnesium (1.6-2.3) mg/dL Total Bilirubin (0.2-1.3) mg/dL AST (17-59) U/L ALT (4-49) U/L Alkaline Phosphatase (38-126) U/L Troponin I (0.000-0.034) ng/mL Total Protein (6.3-8.2) g/dL Albumin (3.5-5.0) g/dL Urine Protein 1+ H (Negative) Urine Blood Large H (Negative) Amorphous Sediment Occasional H (None) /hpf Urine Mucus Rare H (None) /hpf
[2022-09-10] MEDS: CHOLESTYRAMINE (WITH SUGAR) 4 GM PACKET PO SCH (17:04)
[2022-09-10] MEDS: SODIUM BICARBONATE TAB 650 MG TAB PO SCH (21:45)
[2022-09-10] MEDS: amLODIPine 10 MG TAB PO SCH (21:45)
[2022-09-11] MEDS: SODIUM CHLORIDE 0.9% 1,000 ML IV SCH (03:05)
[2022-09-11 05:41] LABS: Albumin 2.5 g/dL (3.5-5.0); Calcium 7.7 mg/dL (8.4-10.2); Magnesium 2.6 mg/dL (1.6-2.3); Potassium 5.6 mmol/L (3.5-5.1); Total Bilirubin 3.6 mg/dL (0.2-1.3); Total Protein 5.1 g/dL (6.3-8.2)
[2022-09-11] MEDS: SODIUM BICARBONATE TAB 650 MG TAB PO SCH ×2 (08:29→20:19)
[2022-09-11] MEDS: CHOLESTYRAMINE (WITH SUGAR) 4 GM PACKET PO SCH ×2 (08:29→17:29)
[2022-09-11] MEDS ORDERED: SODIUM BICARB 8.4% 50 ML SYR (1 MEQ/ML) IV STA (10:43)
[2022-09-11] MEDS ORDERED: FUROSEMIDE 10 MG/ML 4 ML VIAL IV STA (10:43)
[2022-09-11] MEDS ORDERED: SODIUM ZIRCONIUM CYCLOSILICATE 10 GM PACKET PO ONE (10:43)
--- NOTE | 2022-09-11 10:46 | P.NPCON ---
History of Present Illness - Reason for Consult acute renal failure - History of Present Illness Reason for consultation: Acute kidney injury History of present illness: Patient is a 77-year-old male seen in renal consultation for acute kidney injury. Patient's creatinine on admission was 1.6 and is 1.79 today. Patient was admitted at this facility earlier this month from September 06 08/29/2022 and at that time developed acute kidney injury from urinary retention. Patient states Lee catheter was placed at that admission and he still has that same Lee catheter. Patient states he recently had a biliary stent placed. He follows at [facility] and is being worked up for pancreatic cancer. Patient states he has an appointment there tomorrow and is scheduled to get a CAT scan and an ultrasound done. He did have diarrhea a few days ago but now resolved. He is currently receiving IV fluids. He does have edema in the lower extremities. Patient states he felt quite weak and that's why he came to the hospital. He denies use of nonsteroidals. Blood pressure is stable. Denies chest pain or shortness of breath. Denies history of diabetes or heart disease. Vital signs are stable. General: No acute distress. HEENT: Head exam is unremarkable. LUNGS: No audible rhonchi or wheezes. HEART: Rate and Rhythm are regular. ABDOMEN: Nontender. Obese. EXTREMITITES: Jaundice noted. 2+ edema. Past Medical History Past Medical History: Hyperlipidemia, Hypertension Additional Past Medical History / Comment(s): currently jaundiced, current urinary retention, pancreatic cancer diagnosed on 08/22/22 at [facility] History of Any Multi-Drug Resistant Organisms: None Reported Past Surgical History: Joint Replacement Additional Past Surgical History / Comment(s): RIGHT KNEE REPLACED. Past Anesthesia/Blood Transfusion Reactions: No Reported Reaction Additional Past Anesthesia/Blood Transfusion Reaction / Comment(s): never received blood before Past Psychological History: No Psychological Hx Reported Smoking Status: Never smoker Past Alcohol Use History: Occasional Past Drug Use History: None Reported - Past Family History Brother(s) Additional Family Medical History / Comment(s): gallstones Father Additional Family Medical History / Comment(s): prostate cancer, from "old age" Mother Additional Family Medical History / Comment(s): from PE after open heart surgery. Medications and Allergies Home Medications Medication Instructions Recorded Confirmed Type Atorvastatin [Lipitor] 40 mg PO HS 12/05/15 09/10/22 History amLODIPine [Norvasc] 10 mg PO HS 12/05/15 09/10/22 History Cholecalciferol [Vitamin D3 (25 50 mcg PO DAILY 08/27/22 09/10/22 History Mcg = 1000 Iu)] Cholestyramine (with Sugar) 4 gm PO BID 08/27/22 09/10/22 History [Cholestyramine Packet] Multivit-Min/FA/Lycopen/Lutein 1 tab PO DAILY 08/27/22 09/10/22 History [Centrum Silver Tablet] [place]-3 500mg 1 cap PO Q48H 08/27/22 09/10/22 History Saw [place] 450mg 1 cap PO AC-BID 08/27/22 09/10/22 History Vitamin E (Dl,Tocopheryl Acet) 400 unit PO W/SUPPER 08/27/22 09/10/22 History [Vitamin E (400 Iu = 180 mg)] Vits A,C,E/Lutein/Minerals 1 tab PO DAILY 08/27/22 09/10/22 History [Ocuvite with Lutein Tablet] Sodium Bicarbonate Tab 650 mg PO BID #0 tab 08/29/22 09/10/22 Rx Furosemide [Lasix] 20 mg PO DAILY 09/10/22 09/10/22 History Allergies Allergy/AdvReac Type Severity Reaction Status Date / Time No Known Allergies Allergy Verified 09/10/22 10:48 Physical Exam Vitals: Vital Signs Temp Pulse Resp BP Pulse Ox 09/11/22 06:27 98.4 F 69 15 131/65 98 09/11/22 04:00 70 09/11/22 03:03 69 15 115/65 96 09/10/22 23:33 69 15 115/65 96 09/10/22 21:47 90 18 115/65 99 09/10/22 19:52 97.9 F 77 15 119/73 96 09/10/22 17:27 75 18 101/61 99 09/10/22 11:23 80 18 189/89 97 Intake and Output 09/10/22 09/11/22 09/11/22 22:59 06:59 14:59 Intake Total 1372.5 Output Total 900 1000 Balance -900 372.5 Intake: Intake, IV Titration 412.5 Amount Sodium Chloride 0.9% 1, 412.5 000 ml @ 75 mls/hr IV . [id number] [facility] Rx#:[id number] Oral 960 Output: Urine 900 1000 Results - Lab Results Most recent lab results Calcium 7.7 mg/dL (8.4-10.2) L 09/11/22 04:55 Phosphorus 6.3 mg/dL (2.5-4.5) H 09/10/22 10:06 Magnesium 2.6 mg/dL (1.6-2.3) H 09/11/22 04:55 09/10/22 10:06 09/11/22 04:55 Assessment and Plan Plan: Assessment: 1. 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 No hydronephrosis noted on kidney ultrasound done 08/28/2022. Creatinine 1.79 today. Nonoliguric. 2. Hyperkalemia secondary to acute kidney injury and metabolic acidosis. 3. Volume overload. 4. Obstructive jaundice with concern for pancreatic cancer with recent biliary stent placement [facility]. 5. Hypervolemic hyponatremia. 6. Metabolic acidosis secondary to acute kidney injury. 7. Urinary retention. Has Lee catheter. Plan: Lasix 40 mg IV once today. Hep-Lock IV fluids. Lokelma 10 g once today. Repeat potassium level this evening. Add oral bicarbonate. Check urine sodium level. Repeat renal ultrasound. Consider GI eval. Avoid nephrotoxins. Continue to monitor renal function and urine output. Thank you for the consultation. I will continue to follow the patient with you during his hospital stay.
[2022-09-11] MEDS: PANTOPRAZOLE 40 MG/10 ML VIAL IV SCH (11:35)
--- NOTE | 2022-09-11 15:51 | US ---
EXAMINATION TYPE: US kidneys/renal and bladder DATE OF EXAM: 09/11/2022 COMPARISON: Us kidneys 08/28/[address] abdomen August 09, 2022 CLINICAL INDICATION: Male, 77 years old with history of melvin; MELVIN EXAM MEASUREMENTS: Right Kidney: 14.6 x 7.4 x 5.4 cm Left Kidney: 14.0 x 6.6 x 6.9 cm Right Kidney: Enlarged. Anechoic area seen lower pole: 2.8 x 2.8 x 2.0 cm. Left Kidney: Enlarged. Anechoic area seen upper pole: 2.2 x 2.1 x 1.8 cm. Bladder: Undistended, patient has catheter in place. Bilateral Jets seen: No There is a simple exophytic 2.5 cm thin-walled cyst in the right kidney redemonstrated. There is a si mple 2.0 cm thin-walled cyst upper pole level left kidney redemonstrated. No significant hydronephros is seen bilaterally. Lee catheter is present making bladder evaluation suboptimal. IMPRESSION: No hydronephrosis seen bilaterally.
--- NOTE | 2022-09-11 17:06 | P.PN ---
Subjective Progress Note Date: 09/11/22 This is a pleasant 77-year-old gentleman recently admitted for acute renal failure secondary to urinary retention requiring Lee catheter placement, hyperbilirubinemia with biliary obstructive jaundice-discharged on 08/29/2022 ,currently being worked up for pancreatic cancer at [facility] with re cent biliary stent. T bili 3.6, significantly improved from prior admission of 20 prior to biliary stent placement. AST 2608, ALT 497, alk phos 243. Reports he has been using a walker when ambulating, continues with his workouts daily, good diet intake-including consuming protein supplements, denies pain. Yesterday he was proceeding out the door in route to see his urologist, legs collapsed, unable to get himself up. Denies head trauma, syncope. EMS called and patient transported to the ER. Maintained on IV fluid hydration. Worsening renal function, BUN 102, creatinine 1.79, bicarb 19. Potassium 5.6 .Evaluated by nephrology, recommendations noted and appreciated including a dose of Lo kelma. Troponin 0.037, 0.056. Denies chest pain, palpitations. Objective - Vital Signs Vital signs: Vital Signs Temp 97.5 F L 09/11/22 12:25 Pulse 82 09/11/22 12:25 Resp 18 09/11/22 12:25 BP 139/66 09/11/22 12:25 Pulse Ox 98 09/11/22 12:25 FiO2 Intake & Output 09/10/22 09/11/22 09/11/22 18:59 06:59 18:59 Intake Total 1372.5 Output Total 1900 1650 Balance -527.5 -1650 Weight 106.594 kg 106.594 kg Intake: Intake, IV Titration 412.5 Amount Sodium Chloride 0.9% 1, 412.5 000 ml @ 75 mls/hr IV . [id number] [facility] Rx#:[id number] Oral 960 Output: Urine 1900 1650 Other: Voiding Method Indwelling Catheter # Bowel Movements 1 - Exam PHYSICAL EXAM: VITAL SIGNS: As above GENERAL: Sitting up in chair ,no acute distress, jaundiced HEENT: Normocephalic, atraumatic ,CANDY NECK: Supple, No JVD. CARDIOVASCULAR: S1, S2 regular.. No murmur RESPIRATION: Nonlabored ,Breath sounds diminished in the bases. No rhonchi or crackles. ABDOMEN: Soft, nondistended, nontender . No guarding. No rigidity .+BS. Lee catheter with darkened, brnish urine. LEGS: Positive edema. Positive DP pulses PSYCHIATRY: Alert and oriented X3, mood and affect normal. NERVOUS SYSTEM: Cranial N 2-12 grossly normal. No focal deficits. Strength and sensation grossly intact.. Skin: Jaundiced ,Warm and dry, no rash. - Labs CBC & Chem 7: 09/10/22 10:06 09/11/22 04:55 Labs: Abnormal Lab Results - Last 24 Hours (Table) 09/10/22 09/11/22 Range/Units 15:18 04:55 Sodium 133 L (137-145) mmol/L Potassium 5.6 H (3.5-5.1) mmol/L Chloride 108 H (98-107) mmol/L Carbon Dioxide 19 L (22-30) mmol/L BUN 102 H* (9-20) mg/dL Creatinine 1.79 H (0.66-1.25) mg/dL Glucose 104 H (74-99) mg/dL Calcium 7.7 L (8.4-10.2) mg/dL Magnesium 2.6 H (1.6-2.3) mg/dL Total Bilirubin 3.6 H (0.2-1.3) mg/dL AST 2608 H (17-59) U/L ALT 497 H (4-49) U/L Alkaline Phosphatase 243 H (38-126) U/L Troponin I 0.056 H* (0.000-0.034) ng/mL Total Protein 5.1 L (6.3-8.2) g/dL Albumin 2.5 L (3.5-5.0) g/dL Assessment and Plan Assessment: 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 Metabolic acidosis secondary to #1, Workup in progress for Pancreatic cancer at [facility], Obstructive jaundice, with recent biliary stent placement at [facility] Plan: Continue on current medication regime ,monitoring and symptomatic treatment. received Lokelma, repeat potassium levels later today. Evaluated by nephrology with recommendations noted Iincluding V fluids discontinued and a dose of Lasix. GI consulted. The impression and plan of care has been dictated as directed. : I performed a history and examination of this patient, discussed the same with the dictator. I agree with the dictator's note ,documented as a scribe. Any additional findings or plans will be noted.
[2022-09-11] MEDS ORDERED: diphenhydrAMINE 50 MG/ML 1 ML VIAL IVP STA (17:29)
[2022-09-11] MEDS ORDERED: diphenhydrAMINE 50 MG/ML 1 ML VIAL IVP PRN (17:30)
[2022-09-11] MEDS: amLODIPine 10 MG TAB PO SCH (20:18)
[2022-09-12 06:38] LABS: African American GFR (CKD) 38 (>60 ml/min/1.73 sqM); Anion Gap 11 mmol/L; Calcium 7.7 mg/dL (8.4-10.2); Carbon Dioxide 15 mmol/L (22-30); Chloride 108 mmol/L (98-107); Glucose 107 mg/dL (74-99); Non-African American GFR(CKD) 33 (>60 ml/min/1.73 sqM); Potassium 5.4 mmol/L (3.5-5.1); Sodium 134 mmol/L (137-145)
[2022-09-12 06:54] LABS: Blood Urea Nitrogen 105 mg/dL (9-20)
[2022-09-12] MEDS: SODIUM BICARBONATE TAB 650 MG TAB PO SCH ×3 (09:39→21:25)
[2022-09-12] MEDS: PANTOPRAZOLE 40 MG/10 ML VIAL IV SCH (09:39)
[2022-09-12] MEDS: CHOLESTYRAMINE (WITH SUGAR) 4 GM PACKET PO SCH ×2 (09:39→16:13)
[2022-09-12 11:39] LABS: Anisocytosis Slight; Basophils % (A) 0 %; Eosinophils # (A) 0.1 k/uL (0-0.7); Eosinophils % (A) 0 %; HCT 31.1 % (39.0-53.0); HGB 9.9 gm/dL (13.0-17.5); Lymphocytes # (A) 0.8 k/uL (1.0-4.8); Lymphocytes % (A) 5 %; MCV 93.9 fL (80.0-100.0); Mean Platelet Volume 8.1; Monocytes # (A) 0.5 k/uL (0-1.0); Monocytes % (A) 3 %; Neutrophils # (A) 14.6 k/uL (1.3-7.7); Neutrophils % (A) 90 %; Platelet Count 319 k/uL (150-450); RBC 3.31 m/uL (4.30-5.90); RDW 16.3 % (11.5-15.5); WBC 16.2 k/uL (3.8-10.6)
[2022-09-12] MEDS ORDERED: SODIUM ZIRCONIUM CYCLOSILICATE 10 GM PACKET PO ONE ×2 (12:44→18:00)
[2022-09-12] MEDS ORDERED: SODIUM BICARB 8.4% 50 ML SYR (1 MEQ/ML) IV STA (12:44)
--- NOTE | 2022-09-12 13:09 | P.PN ---
Subjective Patient is seen in follow-up for acute kidney injury. Renal function slightly worse. Received IV Lasix yesterday. Urine output over 4 L in the last 24 hours. Has Lee catheter. Denies any active bleeding. No vomiting or diarrhea. Oral intake fair. Vital signs are stable. General: No acute distress. HEENT: Head exam is unremarkable. LUNGS: No audible rhonchi or wheezes. HEART: Rate and Rhythm are regular. ABDOMEN: Nontender. EXTREMITITES: 2+ edema. Jaundice noted. Objective - Vital Signs Vital signs: Vital Signs Temp 97.2 F L 09/12/22 07:17 Pulse 81 09/12/22 08:40 Resp 18 09/12/22 08:40 BP 142/79 09/12/22 07:17 Pulse Ox 98 09/12/22 07:17 FiO2 Intake & Output 09/11/22 09/12/22 09/12/22 18:59 06:59 18:59 Output Total 2225 2225 400 Balance -2225 -2225 -400 Weight 106.594 kg 105 kg Output: Urine 2225 2225 400 Other: Voiding Method Indwelling Catheter Indwelling Catheter Indwelling Catheter # Bowel Movements 1 1 - Labs CBC & Chem 7: 09/12/22 11:20 09/12/22 05:33 Labs: Abnormal Lab Results - Last 24 Hours (Table) 09/11/22 09/12/22 09/12/22 Range/Units 17:35 05:33 05:33 WBC (3.8-10.6) k/uL RBC (4.30-5.90) m/uL Hgb (13.0-17.5) gm/dL Hct (39.0-53.0) % RDW (11.5-15.5) % Neutrophils # (1.3-7.7) k/uL Lymphocytes # (1.0-4.8) k/uL Sodium 134 L (137-145) mmol/L Potassium 5.4 H 5.4 H (3.5-5.1) mmol/L Chloride 108 H (98-107) mmol/L Carbon Dioxide 15 L (22-30) mmol/L BUN 105 H* (9-20) mg/dL Creatinine 1.94 H (0.66-1.25) mg/dL Glucose 107 H (74-99) mg/dL Calcium 7.7 L (8.4-10.2) mg/dL Magnesium 2.5 H (1.6-2.3) mg/dL 09/12/22 Range/Units 11:20 WBC 16.2 H (3.8-10.6) k/uL RBC 3.31 L (4.30-5.90) m/uL Hgb 9.9 L (13.0-17.5) gm/dL Hct 31.1 L (39.0-53.0) % RDW 16.3 H (11.5-15.5) % Neutrophils # 14.6 H (1.3-7.7) k/uL Lymphocytes # 0.8 L (1.0-4.8) k/uL Sodium (137-145) mmol/L Potassium (3.5-5.1) mmol/L Chloride (98-107) mmol/L Carbon Dioxide (22-30) mmol/L BUN (9-20) mg/dL Creatinine (0.66-1.25) mg/dL Glucose (74-99) mg/dL Calcium (8.4-10.2) mg/dL Magnesium (1.6-2.3) mg/dL Assessment and Plan Plan: Assessment: 1. 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 No hydronephrosis noted on kidney ultrasound. Creatinine 1.94 t tammy. Nonoliguric. Disproportionately elevated BUN. No active bleeding. Not on steroids. 2. Hyperkalemia secondary to acute kidney injury and metabolic acidosis. Stable. 3. Volume overload. 4. Obstructive jaundice with concern for pancreatic cancer with recent biliary stent placement [facility]. GI consulted. 5. Hypervolemic hyponatremia. 6. Metabolic acidosis secondary to acute kidney injury. On oral bicarbonate. 7. Urinary retention. Has Lee catheter. Plan: Add IV Lasix 40 mg twice daily. 2 A sodium bicarbonate IV push now. Increase frequency of bicarb to 3 times daily. Repeat Lokelma 10 g once today. Avoid nephrotoxins. Continue to monitor renal function and urine output. Check stool for occult blood.
[2022-09-12] MEDS: FUROSEMIDE 10 MG/ML 4 ML VIAL IV SCH ×2 (13:54→18:42)
--- NOTE | 2022-09-12 14:11 | P.CONS ---
History of Present Illness - Reason for Consult Consult date: 09/12/22 Increased LFTs, pancreatic cancer Requesting physician: Ivy Kelsey - Chief Complaint Weakness - History of Present Illness Rosa ackerman 77-year-old male known to gastroenterology services with a history of pancreatic cancer in recent biliary obstruction who follows at [facility] with Dr. hall who recently underwent biliary stent placement. Apparently patient was feeling increased weakness at home and came into the emergency department for further evaluation. Patient has continued indwelling Lee catheter, dark urine with history of urinary retention and acute kidney injury. Patient was noted to have markedly increased LFTs from previous admis amanda. He denies any abdominal pain, no nausea or vomiting. States he wants to go home. Labs WBC 16 hemoglobin 9.9 hematocrit 31 platelet count 319,019 or 1.1 total bilirubin 3.6 AST 2608 ALT 497 alkaline phosphatase 243 Review of Systems REVIEW OF SYSTEMS: CARDIOPULMONARY: No chest pain or shortness of breath. Gastrointestinal: No abdominal pain, right upper quadrant or epigastric pain. No nausea or vomiting. No hematemesis, coffee-ground emesis. No rectal bl eeding, or melena. GENITOURINARY: No dysuria or hematuria. Indwelling Lee catheter. MUSCULOSKELETAL: Reports normal range of motion SKIN: No rashes. No jaundice. ENDOCRINE: No chills, fevers. No excessive weight gain or loss. No polydipsia or polyuria. PSYCHIATRIC: Unremarkable. NEUROLOGY: No change in mental status. Denies dizziness, headache. ENT: Vision unremarkable. CONSTITUTIONAL: Generalized weakness. No fever, chills, night sweats. Past Medical History Past Medical History: Hyperlipidemia, Hypertension Additional Past Medical History / Comment(s): currently jaundiced, current urinary retention, pancreatic cancer diagnosed on 08/22/22 at [facility] History of Any Multi-Drug Resistant Organisms: None Reported Past Surgical History: Joint Replacement Additional Past Surgical History / Comment(s): RIGHT KNEE REPLACED, stent Past Anesthesia/Blood Transfusion Reactions: No Reported Reaction Additional Past Anesthesia/Blood Transfusion Reaction / Comm: never received blood before Past Psychological History: No Psychological Hx Reported Smoking Status: Never smoker Past Alcohol Use History: Occasional Past Drug Use History: None Reported - Past Family History Brother(s) Additional Family Medical History / Comment(s): gallstones Father Additional Family Medical History / Comment(s): prostate cancer, from "old age" Mother Additional Family Medical History / Comment(s): from PE after open heart surgery. Medications and Allergies Home Medications Medication Instructions Recorded Confirmed Type Atorvastatin [Lipitor] 40 mg PO HS 12/05/15 09/10/22 History amLODIPine [Norvasc] 10 mg PO HS 12/05/15 09/10/22 History Cholecalciferol [Vitamin D3 (25 50 mcg PO DAILY 08/27/22 09/10/22 History Mcg = 1000 Iu)] Cholestyramine (with Sugar) 4 gm PO BID 08/27/22 09/10/22 History [Cholestyramine Packet] Multivit-Min/FA/Lycopen/Lutein 1 tab PO DAILY 08/27/22 09/10/22 History [Centrum Silver Tablet] [place]-3 500mg 1 cap PO Q48H 08/27/22 09/10/22 History Saw [place] 450mg 1 cap PO AC-BID 08/27/22 09/10/22 History Vitamin E (Dl,Tocopheryl Acet) 400 unit PO W/SUPPER 08/27/22 09/10/22 History [Vitamin E (400 Iu = 180 mg)] Vits A,C,E/Lutein/Minerals 1 tab PO DAILY 08/27/22 09/10/22 History [Ocuvite with Lutein Tablet] Sodium Bicarbonate Tab 650 mg PO BID #0 tab 08/29/22 09/10/22 Rx Furosemide [Lasix] 20 mg PO DAILY 09/10/22 09/10/22 History Allergies Allergy/AdvReac Type Severity Reaction Status Date / Time No Known Allergies Allergy Verified 09/10/22 10:48 Physical Exam Vitals: Vital Signs Temp Pulse Resp BP Pulse Ox 09/12/22 07:17 97.2 F L 81 18 142/79 98 09/12/22 02:30 98.8 F 82 15 111/65 98 09/11/22 20:03 98.0 F 84 15 131/65 96 09/11/22 20:00 82 18 09/11/22 12:25 97.5 F L 82 18 139/66 98 Intake and Output 09/11/22 09/12/22 09/12/22 22:59 06:59 14:59 Output Total 2150 1650 400 Balance -2150 -1650 -400 Output: Urine 2150 1650 400 Other: Voiding Method Indwelling Catheter # Bowel Movements 1 Weight 105 kg General appearance: The patient is alert, oriented, appears in no acute distress. HET: Head is normocephalic and atraumatic. Conjunctiva pink. Sclera icteric. Neck: Supple without lymphadenopathy. Trachea midline. Heart: S1 S2. Regular rate and rhythm. Lungs: Clear to auscultation. Abdomen: Soft, nontender, nondistended with bowel sounds. No guarding or rigidity. Skin: No rashes. jaundice. Extremities: Normal skin color and turgor. No pedal edema. Neurological: No focal deficits. Alert and oriented x3. Results CBC & Chem 7: 09/12/22 11:20 09/12/22 05:33 Labs: Abnormal Lab Results - Last 24 Hours (Table) 09/11/22 09/12/22 09/12/22 Range/Units 17:35 05:33 05:33 Sodium 134 L (137-145) mmol/L Potassium 5.4 H 5.4 H (3.5-5.1) mmol/L Chloride 108 H (98-107) mmol/L Carbon Dioxide 15 L (22-30) mmol/L BUN 105 H* (9-20) mg/dL Creatinine 1.94 H (0.66-1.25) mg/dL Glucose 107 H (74-99) mg/dL Calcium 7.7 L (8.4-10.2) mg/dL Magnesium 2.5 H (1.6-2.3) mg/dL Assessment and Plan (1) Pancreatic cancer Narrative/Plan: 77-year-old with recent diagnosis of pancreatic cancer with biliary obstruction status post stenting who follows with Dr. reyes from [facility] presented for increased weakness. Was noted to have elevated LFTs likely secondary to reactive pancreatic cancer and recent stenting. Patient is without any abdominal pain, nausea or vomiting. Bilirubin improving. No further workup from gastroenterology indicated. Patient to follow-up with Dr. Rocah with [facility]. Current Visit: No Status: Acute Code(s): C25.9 - MALIGNANT NEOPLASM OF PANCREAS, UNSPECIFIED SNOMED Code(s): 951079557 (2) MELVIN (acute kidney injury) Current Visit: No Status: Acute Code(s): N17.9 - ACUTE KIDNEY FAILURE, UNSPECIFIED SNOMED Code(s): 01713735 (3) Transaminitis Current Visit: Yes Status: Acute Code(s): R74.01 - ELEVATION OF LEVELS OF LIVER TRANSAMINASE LEVELS SNOMED Code(s): 178355027 Plan: 1. Continue symptomatic supportive care 2. Continue medical management 3. No further workup indicated for LFTs and pancreatic cancer 4. Patient to follow-up with Dr. Hall/[facility] as scheduled 5. Patient is cleared from gastroenterology standpoint, we will sign off at this time. Thank you for this consultation. Dr. Jony Donato I agree with the dictator's note, documented as a scribe by Johanna Hastings.
[2022-09-12 16:48] LABS: ALT 568 U/L (4-49); African American GFR (CKD) 31 (>60 ml/min/1.73 sqM); Albumin 2.5 g/dL (3.5-5.0); Alkaline Phosphatase 185 U/L (38-126); Anion Gap 12 mmol/L; Calcium 7.6 mg/dL (8.4-10.2); Carbon Dioxide 20 mmol/L (22-30); Chloride 103 mmol/L (98-107); Globulin 2.5 g/dL; Glucose 113 mg/dL (74-99); Non-African American GFR(CKD) 27 (>60 ml/min/1.73 sqM); Potassium 5.7 mmol/L (3.5-5.1); Sodium 135 mmol/L (137-145); Total Bilirubin 3.1 mg/dL (0.2-1.3)
--- NOTE | 2022-09-12 17:02 | P.PN ---
Subjective Progress Note Date: 09/12/22 This is a pleasant 77-year-old gentleman recently admitted for acute renal failure secondary to urinary retention requiring Lee catheter placement, hyperbilirubinemia with biliary obstructive jaundice-discharged on 08/29/2022 ,currently being worked up for pancreatic cancer at [facility] with re cent biliary stent. T bili 3.6, significantly improved from prior admission of 20 prior to biliary stent placement. AST 2608, ALT 497, alk phos 243. Reports he has been using a walker when ambulating, continues with his workouts daily, good diet intake-including consuming protein supplements, denies pain. Yesterday he was proceeding out the door in route to see his urologist, legs collapsed, unable to get himself up. Denies head trauma, syncope. EMS called and patient transported to the ER. Maintained on IV fluid hydration. Worsening renal function, BUN 102, creatinine 1.79, bicarb 19. Potassium 5.6 .Evaluated by nephrology, recommendations noted and appreciated including a dose of Lo kelma. Troponin 0.037, 0.056. Denies chest pain, palpitations. 09/12/2022 received a dose of Lasix yesterday, 24-hour I&O reflecting a urine output of 4400 .renal ultrasound reported no hydronephrosis seen bilaterally .renal function worsened, 1.94. Sodium 134, potassium 5.4, bicarb 15, BUN 105, creatinine 1.94. Bicarbonate frequency increased .Denies nausea, vomiting or diarrhea. Denies abdominal pain. Denies chest pain, palpitations or shortness of breath. Afebrile, CBC pending. Evaluated by GI with recommendations noted and appreciated-suspecting elevated LFTs related to pancreatic cancer/ recent stent placement with no further workup indicated.Patient requesting to go home,states he eats healthier at home and is able to be more active at home. Objective - Vital Signs Vital signs: Vital Signs Temp 97.5 F L 09/12/22 13:23 Pulse 84 09/12/22 13:23 Resp 18 09/12/22 13:23 BP 144/73 09/12/22 13:23 Pulse Ox 98 09/12/22 13:23 FiO2 Intake & Output 09/11/22 09/12/22 09/12/22 18:59 06:59 18:59 Output Total 2225 2225 3400 Balance -2225 -2224 Weight 106.594 kg 105 kg Output: Urine 2224 2224 3399 Other: Voiding Method Indwelling Catheter Indwelling Catheter Indwelling Catheter # Bowel Movements 1 1 - Exam PHYSICAL EXAM: VITAL SIGNS: As above GENERAL: Sitting up in chair ,no acute distress, jaundiced HEENT: Normocephalic, atraumatic ,CANDY, sclerae icteric NECK: Supple, No JVD. CARDIOVASCULAR: S1, S2 regular.. No murmur RESPIRATION: Nonlabored ,Breath sounds diminished in the bases. ABDOMEN: Soft, nondistended, nontender . No guarding. No rigidity .+BS. Lee catheter with darkened urine. LEGS: Positive edema. Positive DP pulses PSYCHIATRY: Alert and oriented X3, mood and affect normal. NERVOUS SYSTEM: Cranial N 2-12 grossly normal. No focal deficits. Strength and sensation grossly intact. Skin: Jaundiced ,Warm and dry, no rash. - Labs CBC & Chem 7: 09/12/22 11:20 09/12/22 05:33 Labs: Abnormal Lab Results - Last 24 Hours (Table) 09/11/22 09/12/22 09/12/22 Range/Units 17:35 05:33 05:33 WBC (3.8-10.6) k/uL RBC (4.30-5.90) m/uL Hgb (13.0-17.5) gm/dL Hct (39.0-53.0) % RDW (11.5-15.5) % Neutrophils # (1.3-7.7) k/uL Lymphocytes # (1.0-4.8) k/uL Sodium 134 L (137-145) mmol/L Potassium 5.4 H 5.4 H (3.5-5.1) mmol/L Chloride 108 H (98-107) mmol/L Carbon Dioxide 15 L (22-30) mmol/L BUN 105 H* (9-20) mg/dL Creatinine 1.94 H (0.66-1.25) mg/dL Glucose 107 H (74-99) mg/dL Calcium 7.7 L (8.4-10.2) mg/dL Magnesium 2.5 H (1.6-2.3) mg/dL 09/12/22 Range/Units 11:20 WBC 16.2 H (3.8-10.6) k/uL RBC 3.31 L (4.30-5.90) m/uL Hgb 9.9 L (13.0-17.5) gm/dL Hct 31.1 L (39.0-53.0) % RDW 16.3 H (11.5-15.5) % Neutrophils # 14.6 H (1.3-7.7) k/uL Lymphocytes # 0.8 L (1.0-4.8) k/uL Sodium (137-145) mmol/L Potassium (3.5-5.1) mmol/L Chloride (98-107) mmol/L Carbon Dioxide (22-30) mmol/L BUN (9-20) mg/dL Creatinine (0.66-1.25) mg/dL Glucose (74-99) mg/dL Calcium (8.4-10.2) mg/dL Magnesium (1.6-2.3) mg/dL Assessment and Plan Assessment: 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 Metabolic acidosis secondary to #1, Workup in progress for Pancreatic cancer at [facility], Obstructive jaundice, with recent biliary stent placement at [facility],elevated LFTs Plan: Continue on current medication regime ,monitoring and symptomatic treatment. CBC pending .Diuretics as per nephrology.Close monitoring of renal function, electrolytes, LFTs with repeat labs ordered for a.m. The impression and plan of care has been dictated as directed. : I performed a history and examination of this patient, discussed the same with the dictator. I agree with the dictator's note ,documented as a scribe. Any additional findings or plans will be noted.
[2022-09-12 17:30] LABS: AST 3025 U/L (17-59)
[2022-09-12 17:33] LABS: Blood Urea Nitrogen 106 mg/dL (9-20)
[2022-09-12] MEDS: amLODIPine 10 MG TAB PO SCH (21:25)
[2022-09-13] MEDS: CHOLESTYRAMINE (WITH SUGAR) 4 GM PACKET PO SCH ×2 (07:12→18:13)
[2022-09-13] MEDS: SODIUM BICARBONATE TAB 650 MG TAB PO SCH ×3 (07:12→19:55)
[2022-09-13 07:25] LABS: African American GFR (CKD) 32 (>60 ml/min/1.73 sqM); Anion Gap 9 mmol/L; Calcium 7.5 mg/dL (8.4-10.2); Carbon Dioxide 19 mmol/L (22-30); Chloride 105 mmol/L (98-107); Glucose 103 mg/dL (74-99); Non-African American GFR(CKD) 27 (>60 ml/min/1.73 sqM); Potassium 5.1 mmol/L (3.5-5.1); Sodium 133 mmol/L (137-145)
[2022-09-13 07:27] LABS: Blood Urea Nitrogen 113 mg/dL (9-20)
[2022-09-13 08:28] LABS: Anisocytosis Slight; Basophils % (A) 0 %; Eosinophils # (A) 0.1 k/uL (0-0.7); Eosinophils % (A) 1 %; HCT 29.3 % (39.0-53.0); HGB 9.5 gm/dL (13.0-17.5); Lymphocytes # (A) 1.1 k/uL (1.0-4.8); Lymphocytes % (A) 7 %; MCH 30.5 pg (25.0-35.0); MCHC 32.5 g/dL (31.0-37.0); MCV 93.9 fL (80.0-100.0); Mean Platelet Volume 7.8; Monocytes # (A) 0.7 k/uL (0-1.0); Monocytes % (A) 5 %; Neutrophils # (A) 13.1 k/uL (1.3-7.7); Neutrophils % (A) 87 %; Platelet Count 310 k/uL (150-450); RBC 3.12 m/uL (4.30-5.90); RDW 16.2 % (11.5-15.5); WBC 15.1 k/uL (3.8-10.6)
[2022-09-13 08:39] LABS: ALT 572 U/L (4-49); African American GFR (CKD) 33 (>60 ml/min/1.73 sqM); Albumin 2.5 g/dL (3.5-5.0); Alkaline Phosphatase 179 U/L (38-126); Anion Gap 9 mmol/L; Calcium 7.6 mg/dL (8.4-10.2); Carbon Dioxide 21 mmol/L (22-30); Chloride 105 mmol/L (98-107); Globulin 2.6 g/dL; Glucose 123 mg/dL (74-99); Non-African American GFR(CKD) 29 (>60 ml/min/1.73 sqM); Potassium 4.6 mmol/L (3.5-5.1); Sodium 135 mmol/L (137-145); Total Bilirubin 3.1 mg/dL (0.2-1.3); Total Protein 5.1 g/dL (6.3-8.2)
[2022-09-13 08:47] LABS: Blood Urea Nitrogen 112 mg/dL (9-20)
[2022-09-13] MEDS: FUROSEMIDE 10 MG/ML 4 ML VIAL IV SCH (09:12)
[2022-09-13] MEDS: PANTOPRAZOLE 40 MG/10 ML VIAL IV SCH (09:15)
[2022-09-13 10:24] LABS: AST 2729 U/L (17-59)
[2022-09-13 11:22] LABS: Glucose,Whole Blood 247 mg/dL (70-110)
--- NOTE | 2022-09-13 12:51 | P.PN ---
Subjective Patient is seen in follow-up for acute kidney injury. Renal function stable. Urine output over 6 L in the last 24 hours. On IV Lasix. Feels better. Edema improved. Has Lee catheter. Denies any active bleeding. No vomiting or diarrhea. Oral intake fair. Vital signs are stable. General: No acute distress. HEENT: Head exam is unremarkable. LUNGS: No audible rhonchi or wheezes. HEART: Rate and Rhythm are regular. ABDOMEN: Nontender. EXTREMITITES: 1+ edema. Jaundice noted. Objective - Vital Signs Vital signs: Vital Signs Temp 97.8 F 09/13/22 07:29 Pulse 77 09/13/22 07:29 Resp 18 09/13/22 07:29 BP 138/70 09/13/22 07:29 Pulse Ox 98 09/13/22 07:29 FiO2 Intake & Output 09/12/22 09/13/22 09/13/22 18:59 06:59 18:59 Intake Total 810 Output Total 4000 2300 Balance -3190 -2300 Weight 104.5 kg Intake: Oral 810 Output: Urine 4000 2300 Other: Voiding Method Indwelling Catheter Indwelling Catheter Indwelling Catheter # Bowel Movements 1 - Labs CBC & Chem 7: 09/13/22 08:03 09/13/22 08:03 Labs: Abnormal Lab Results - Last 24 Hours (Table) 09/12/22 09/13/22 09/13/22 Range/Units 15:55 06:35 06:35 WBC (3.8-10.6) k/uL RBC (4.30-5.90) m/uL Hgb (13.0-17.5) gm/dL Hct (39.0-53.0) % RDW (11.5-15.5) % Neutrophils # (1.3-7.7) k/uL Sodium 135 L 133 L (137-145) mmol/L Potassium 5.7 H (3.5-5.1) mmol/L Carbon Dioxide 20 L 19 L (22-30) mmol/L BUN 106 H* 113 H* (9-20) mg/dL Creatinine 2.26 H 2.25 H (0.66-1.25) mg/dL Glucose 113 H 103 H (74-99) mg/dL POC Glucose (mg/dL) (70-110) mg/dL Calcium 7.6 L 7.5 L (8.4-10.2) mg/dL Magnesium 2.5 H (1.6-2.3) mg/dL Total Bilirubin 3.1 H (0.2-1.3) mg/dL AST 3025 H (17-59) U/L ALT 568 H (4-49) U/L Alkaline Phosphatase 185 H (38-126) U/L Total Protein 5.0 L (6.3-8.2) g/dL Albumin 2.5 L (3.5-5.0) g/dL 09/13/22 09/13/22 09/13/22 Range/Units 08:03 08:03 11:21 WBC 15.1 H (3.8-10.6) k/uL RBC 3.12 L (4.30-5.90) m/uL Hgb 9.5 L (13.0-17.5) gm/dL Hct 29.3 L (39.0-53.0) % RDW 16.2 H (11.5-15.5) % Neutrophils # 13.1 H (1.3-7.7) k/uL Sodium 135 L (137-145) mmol/L Potassium (3.5-5.1) mmol/L Carbon Dioxide 21 L (22-30) mmol/L BUN 112 H* (9-20) mg/dL Creatinine 2.15 H (0.66-1.25) mg/dL Glucose 123 H (74-99) mg/dL POC Glucose (mg/dL) 247 H (70-110) mg/dL Calcium 7.6 L (8.4-10.2) mg/dL Magnesium (1.6-2.3) mg/dL Total Bilirubin 3.1 H (0.2-1.3) mg/dL AST 2729 H (17-59) U/L ALT 572 H (4-49) U/L Alkaline Phosphatase 179 H (38-126) U/L Total Protein 5.1 L (6.3-8.2) g/dL Albumin 2.5 L (3.5-5.0) g/dL Assessment and Plan Plan: Assessment: 1. 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 No hydronephrosis noted on kidney ultrasound. Creatinine 2.15 today. Nonoliguric. Disproportionately elevated BUN. No active bleeding. Not on steroids. No obstruction noted on ultrasound. ?CHF/renal congestion. 2. Hyperkalemia secondary to acute kidney injury and metabolic acidosis. Improved with diuresis. 3. Volume overload. Improved with diuresis. 4. Obstructive jaundice with concern for pancreatic cancer with recent biliary stent placement rn dermatology for hospital. Seen by GI. No interventions planned. 5. Hypervolemic hyponatremia. Improved with diuresis. 6. Metabolic acidosis secondary to acute kidney injury. On oral bicarbonate. Better. 7. Urinary retention. Has Lee catheter. Plan: Change IV Lasix to oral torsemide 20 mg once daily. Patient advised to monitor his weight closely at home and to increase to 40 mg once daily torsemide if notices worsening edema we can of more than 3 pounds in 1 week duration. Repeat BMP and magnesium level 2-3 days postdischarge. Avoid nephrotoxins. Continue to monitor renal function and urine output. Stool for occult blood pending. Check echocardiogram. Add Flomax.
[2022-09-13] MEDS: TORSEMIDE 20 MG TAB PO SCH (13:09)
[2022-09-13] MEDS: TAMSULOSIN 0.4 MG CAP.ER.24H PO SCH (13:14)
--- NOTE | 2022-09-13 18:56 | P.PN ---
Subjective Progress Note Date: 09/13/22 This is a pleasant 77-year-old gentleman recently admitted for acute renal failure secondary to urinary retention requiring Lee catheter placement, hyperbilirubinemia with biliary obstructive jaundice-discharged on 08/29/2022 ,currently being worked up for pancreatic cancer at [facility] with re cent biliary stent. T bili 3.6, significantly improved from prior admission of 20 prior to biliary stent placement. AST 2608, ALT 497, alk phos 243. Reports he has been using a walker when ambulating, continues with his workouts daily, good diet intake-including consuming protein supplements, denies pain. Yesterday he was proceeding out the door in route to see his urologist, legs collapsed, unable to get himself up. Denies head trauma, syncope. EMS called and patient transported to the ER. Maintained on IV fluid hydration. Worsening renal function, BUN 102, creatinine 1.79, bicarb 19. Potassium 5.6 .Evaluated by nephrology, recommendations noted and appreciated including a dose of Lo kelma. Troponin 0.037, 0.056. Denies chest pain, palpitations. 09/12/2022 received a dose of Lasix yesterday, 24-hour I&O reflecting a urine output of 4400 .renal ultrasound reported no hydronephrosis seen bilaterally .renal function worsened, 1.94. Sodium 134, potassium 5.4, bicarb 15, BUN 105, creatinine 1.94. Bicarbonate frequency increased .Denies nausea, vomiting or diarrhea. Denies abdominal pain. Denies chest pain, palpitations or shortness of breath. Afebrile, CBC pending. Evaluated by GI with recommendations noted and appreciated-suspecting elevated LFTs related to pancreatic cancer/ recent stent placement with no further workup indicated.Patient requesting to go home,states he eats healthier at home and is able to be more active at home. 09/13/2022 diuresing well on Lasix IV push with 24-hour I&O reflecting a negative fluid balance. BUN 112, creatinine 2.15. T bili 3.1, AST decreased to 2729, ALT 572, alk phos decreased to 179. Afebrile, WBC 15.1. Received addit ional dose of lokelma yesterday with potassium improved, 4.6.Continues on oral bicarbonate, bicarb improving, 21. Objective - Vital Signs Vital signs: Vital Signs Temp 97.8 F 09/13/22 07:29 Pulse 77 09/13/22 07:29 Resp 18 09/13/22 07:29 BP 138/70 09/13/22 07:29 Pulse Ox 98 09/13/22 07:29 FiO2 Intake & Output 09/12/22 09/13/22 09/13/22 18:59 06:59 18:59 Intake Total 810 Output Total 4000 2300 Balance -3190 -2300 Weight 104.5 kg Intake: Oral 810 Output: Urine 4000 2300 Other: Voiding Method Indwelling Catheter Indwelling Catheter Indwelling Catheter # Bowel Movements 1 - Exam PHYSICAL EXAM: VITAL SIGNS: As above GENERAL: Sitting up in bed ,no acute distress, jaundiced HEENT: Normocephalic, atraumatic ,CANDY, sclerae icteric NECK: Supple, No JVD. CARDIOVASCULAR: S1, S2 regular.. No murmur RESPIRATION: Nonlabored ,Breath sounds diminished in the bases. ABDOMEN: Soft, nondistended, nontender . No guarding. No rigidity .+BS. LEGS: Positive edema. Positive DP pulses PSYCHIATRY: Alert and oriented X3, mood and affect normal. NERVOUS SYSTEM: Cranial N 2-12 grossly normal. No focal deficits. Strength and sensation grossly intact. Skin: Jaundiced ,Warm and dry, no rash. - Labs CBC & Chem 7: 09/13/22 08:03 09/13/22 08:03 Labs: Abnormal Lab Results - Last 24 Hours (Table) 09/12/22 09/13/22 09/13/22 Range/Units 15:55 06:35 06:35 WBC (3.8-10.6) k/uL RBC (4.30-5.90) m/uL Hgb (13.0-17.5) gm/dL Hct (39.0-53.0) % RDW (11.5-15.5) % Neutrophils # (1.3-7.7) k/uL Sodium 135 L 133 L (137-145) mmol/L Potassium 5.7 H (3.5-5.1) mmol/L Carbon Dioxide 20 L 19 L (22-30) mmol/L BUN 106 H* 113 H* (9-20) mg/dL Creatinine 2.26 H 2.25 H (0.66-1.25) mg/dL Glucose 113 H 103 H (74-99) mg/dL POC Glucose (mg/dL) (70-110) mg/dL Calcium 7.6 L 7.5 L (8.4-10.2) mg/dL Magnesium 2.5 H (1.6-2.3) mg/dL Total Bilirubin 3.1 H (0.2-1.3) mg/dL AST 3025 H (17-59) U/L ALT 568 H (4-49) U/L Alkaline Phosphatase 185 H (38-126) U/L Total Protein 5.0 L (6.3-8.2) g/dL Albumin 2.5 L (3.5-5.0) g/dL 09/13/22 09/13/22 09/13/22 Range/Units 08:03 08:03 11:21 WBC 15.1 H (3.8-10.6) k/uL RBC 3.12 L (4.30-5.90) m/uL Hgb 9.5 L (13.0-17.5) gm/dL Hct 29.3 L (39.0-53.0) % RDW 16.2 H (11.5-15.5) % Neutrophils # 13.1 H (1.3-7.7) k/uL Sodium 135 L (137-145) mmol/L Potassium (3.5-5.1) mmol/L Carbon Dioxide 21 L (22-30) mmol/L BUN 112 H* (9-20) mg/dL Creatinine 2.15 H (0.66-1.25) mg/dL Glucose 123 H (74-99) mg/dL POC Glucose (mg/dL) 247 H (70-110) mg/dL Calcium 7.6 L (8.4-10.2) mg/dL Magnesium (1.6-2.3) mg/dL Total Bilirubin 3.1 H (0.2-1.3) mg/dL AST 2729 H (17-59) U/L ALT 572 H (4-49) U/L Alkaline Phosphatase 179 H (38-126) U/L Total Protein 5.1 L (6.3-8.2) g/dL Albumin 2.5 L (3.5-5.0) g/dL Assessment and Plan Assessment: 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 Metabolic acidosis secondary to #1, Workup in progress for Pancreatic cancer at [facility], Obstructive jaundice, with recent biliary stent placement at [facility],elevated LFTs Plan: Continue on current medication regime ,monitoring and symptomatic treatment. Diuretics as per nephrology.Close monitoring of renal function, electrolytes, LFTs with repeat labs ordered for a.m. increase ambulation as tolerated. The impression and plan of care has been dictated as directed. : I performed a history and examination of this patient, discussed the same with the dictator. I agree with the dictator's note ,documented as a scribe. Any additional findings or plans will be noted.
[2022-09-13] MEDS: amLODIPine 10 MG TAB PO SCH (19:54)
[2022-09-14 07:24] LABS: Anisocytosis Slight; Basophils # (A) 0.1 k/uL (0-0.2); Basophils % (A) 0 %; Eosinophils # (A) 0.1 k/uL (0-0.7); Eosinophils % (A) 1 %; HCT 31.1 % (39.0-53.0); Lymphocytes # (A) 1.1 k/uL (1.0-4.8); Lymphocytes % (A) 7 %; MCH 30.7 pg (25.0-35.0); MCHC 32.1 g/dL (31.0-37.0); MCV 95.5 fL (80.0-100.0); Mean Platelet Volume 7.7; Monocytes # (A) 0.8 k/uL (0-1.0); Monocytes % (A) 5 %; Neutrophils # (A) 14.2 k/uL (1.3-7.7); Neutrophils % (A) 87 %; Platelet Count 378 k/uL (150-450); RBC 3.25 m/uL (4.30-5.90); RDW 16.2 % (11.5-15.5); WBC 16.3 k/uL (3.8-10.6)
[2022-09-14 07:50] LABS: ALT 591 U/L (4-49); African American GFR (CKD) 35 (>60 ml/min/1.73 sqM); Albumin 2.8 g/dL (3.5-5.0); Alkaline Phosphatase 175 U/L (38-126); Anion Gap 10 mmol/L; Carbon Dioxide 23 mmol/L (22-30); Chloride 107 mmol/L (98-107); Globulin 2.8 g/dL; Glucose 118 mg/dL (74-99); Non-African American GFR(CKD) 31 (>60 ml/min/1.73 sqM); Potassium 4.9 mmol/L (3.5-5.1); Sodium 140 mmol/L (137-145); Total Bilirubin 3.1 mg/dL (0.2-1.3); Total Protein 5.6 g/dL (6.3-8.2)
[2022-09-14 07:52] LABS: Blood Urea Nitrogen 117 mg/dL (9-20)
[2022-09-14 08:57] LABS: AST 2200 U/L (17-59)
[2022-09-14] MEDS: TORSEMIDE 20 MG TAB PO SCH (09:15)
[2022-09-14] MEDS: SODIUM BICARBONATE TAB 650 MG TAB PO SCH (09:15)
[2022-09-14] MEDS: PANTOPRAZOLE 40 MG/10 ML VIAL IV SCH (09:15)
[2022-09-14] MEDS: TAMSULOSIN 0.4 MG CAP.ER.24H PO SCH (09:41)
[2022-09-14] MEDS: CHOLESTYRAMINE (WITH SUGAR) 4 GM PACKET PO SCH (09:41)
--- NOTE | 2022-09-14 10:19 | P.DS ---
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 Metabolic acidosis secondary to #1, Workup in progress for Pancreatic cancer at [facility], Obstructive jaundice, with recent biliary stent placement at [facility],elevated LFTs Hospital course:This is a pleasant 77-year-old gentleman recently admitted for acute renal failure secondary to urinary retention requiring Lee catheter placement, hyperbilirubinemia with biliary obstructive jaundice-discharged on 08/29/2022 ,currently being worked up for pancreatic cancer at [facility] with recent biliary stent. T bili 3.6, significantly improved from prior admission of 20 prior to biliary stent placement. AST 2608, ALT 497, alk phos 243. Reports he has been using a walker when ambulating, continues with his workouts daily, good diet intake-including consuming protein supplements, denies pain. Yesterday he was proceeding out the door in route to see his urologist, legs collapsed, unable to get himself up. Denies head trauma, syncope. EMS called and patient transported to the ER. Maintained on IV fluid hydration. Worsening renal function, BUN 102, creatinine 1.79, bicarb 19. Potassium 5.6 .Evaluated by nephrology, recommendations noted and appreciated including a dose of Lokelma. Troponin 0.037, 0.056. Denies chest pain, palpitations. 09/12/2022 received a dose of Lasix yesterday, 24-hour I&O reflecting a urine output of 4400 .renal ultrasound reported no hydronephrosis seen bilaterally .renal function worsened, 1.94. Sodium 134, potassium 5.4, bicarb 15, BUN 105, creatinine 1.94. Bicarbonate frequency increased .Denies nausea, vomiting or diarrhea. Denies abdominal pain. Denies chest pain, palpitations or shortness of breath. Afebrile, CBC pending. Evaluated by GI with recommendations noted and appreciated-suspecting elevated LFTs related to pancreatic cancer/ recent stent placement with no further workup indicated.Patient requesting to go home,states he eats healthier at home and is able to be more active at home. 09/13/2022 diuresing well on Lasix IV push with 24-hour I&O reflecting a negative fluid balance. BUN 112, creatinine 2.15. T bili 3.1, AST decreased to 2729, ALT 572, alk phos decreased to 179. Afebrile, WBC 15.1. Received additional dose of lokelma yesterday with potassium improved, 4.6.Continues on oral bicarbonate, bicarb improving, 21. Denies nausea vomiting or diarrhea. Denies abdominal pain. Denies chest pain, palpitations or shortness of breath. Significant clinical improvement. Feels better this morning. Afebrile, normal WBC. Sodium 140, potassium 4.9, bicarb 23, BUN 117, creatinine 2.06. T bili 3.1, AST 2200, ALT 591, alk phos 175. Patient will be discharged home today in a stable condition with guarded prognosis pending final DC recommendations including oral bicarbonate, diuretics, fluid restrictions and clearance for discharge as per nephrology. Patient has an appointment on 09/17/2022 with [facility]. The impression and plan of care has been dictated as directed. : I performed a history and examination of this patient, discussed the same with the dictator. I agree with the dictator's note ,documented as a scribe. Any additional findings or plans will be noted. Patient Condition at Discharge: Stable Plan - Discharge Summary Discharge Rx Participant: No New Discharge Prescriptions: New Torsemide [Demadex] 20 mg PO DAILY #30 tab Tamsulosin [Flomax] 0.4 mg PO PC-BRKFST #30 cap Continue amLODIPine [Norvasc] 10 mg PO HS Atorvastatin [Lipitor] 40 mg PO HS Vitamin E (Dl,Tocopheryl Acet) [Vitamin E (400 Iu = 180 mg)] 400 unit PO W/SUPPER [place] 450mg 1 cap PO AC-BID Vits A,C,E/Lutein/Minerals [Ocuvite with Lutein Tablet] 1 tab PO DAILY Multivit-Min/FA/Lycopen/Lutein [Centrum Silver Tablet] 1 tab PO DAILY Stebbins-3 500mg 1 cap PO Q48H Cholecalciferol [Vitamin D3 (25 Mcg = 1000 Iu)] 50 mcg PO DAILY Cholestyramine (with Sugar) [Cholestyramine Packet] 4 gm PO BID Changed Sodium Bicarbonate Tab 650 mg PO TID #0 tab Discontinued Furosemide [Lasix] 20 mg PO DAILY Discharge Medication List Atorvastatin [Lipitor] 40 mg PO HS 12/05/15 [History] amLODIPine [Norvasc] 10 mg PO HS 12/05/15 [History] Cholecalciferol [Vitamin D3 (25 Mcg = 1000 Iu)] 50 mcg PO DAILY 08/27/22 [History] Cholestyramine (with Sugar) [Cholestyramine Packet] 4 gm PO BID 08/27/22 [History] Multivit-Min/FA/Lycopen/Lutein [Centrum Silver Tablet] 1 tab PO DAILY 08/27/22 [History] Stebbins-3 500mg 1 cap PO Q48H 08/27/22 [History] Saw [place] 450mg 1 cap PO AC-BID 08/27/22 [History] Vitamin E (Dl,Tocopheryl Acet) [Vitamin E (400 Iu = 180 mg)] 400 unit PO W/SUPPER 08/27/22 [History] Vits A,C,E/Lutein/Minerals [Ocuvite with Lutein Tablet] 1 tab PO DAILY 08/27/22 [History] Sodium Bicarbonate Tab 650 mg PO TID #0 tab 09/14/22 [Rx] Tamsulosin [Flomax] 0.4 mg PO PC-BRKFST #30 cap 09/14/22 [Rx] Torsemide [Demadex] 20 mg PO DAILY #30 tab 09/14/22 [Rx] Follow up Appointment(s)/Referral(s): Feliciano Johnson MD [STAFF PHYSICIAN] - 1 Week Frankie Kennedy DO [STAFF PHYSICIAN] - 1 Week Enrrique Wisdom MD [STAFF PHYSICIAN] - 1 Week Ambulatory/Diagnostic Orders: Basic Metabolic Panel [LAB.AMB] Time Frame: 3 Days, Location: None Selected Activity/Diet/Wound Care/Special Instructions: Arturo Young Apt Saturday09/17/22 Final DC recommendations including Diuretics/fluid restrictions as per nephrology
[2022-09-14 11:56] VITALS: PULSE 80; RESP 15; TEMP 98.1
[2022-09-14] MEDS ORDERED: FUROSEMIDE 10 MG/ML 4 ML VIAL IV ONE (12:00)
[2022-09-14 12:01] VITALS: BP 102/53
--- NOTE | 2022-09-14 12:18 | P.PN ---
Subjective Patient is seen in follow-up for acute kidney injury. Renal function stable. Urine output over 4 L in the last 24 hours. On IV Lasix. Feels better. Has Lee catheter. Denies any active bleeding. No vomiting or diarrhea. Oral intake fair.family present at bedside. Insisting on going home. Has appointment with oncology on Saturday. Vital signs are stable. General: No acute distress. HEENT: Head exam is unremarkable. LUNGS: No audible rhonchi or wheezes. HEART: Rate and Rhythm are regular. ABDOMEN: Nontender. EXTREMITITES: 1+ edema. Jaundice noted. Objective - Vital Signs Vital signs: Vital Signs Temp 98.1 F 09/14/22 11:32 Pulse 80 09/14/22 11:32 Resp 15 09/14/22 11:32 BP 102/53 09/14/22 12:00 Pulse Ox 97 09/14/22 11:32 FiO2 Intake & Output 09/13/22 09/14/22 09/14/22 18:59 06:59 18:59 Intake Total 600 240 Output Total 2450 1650 1200 Balance -1850 -1410 -1200 Weight 99.3 kg Intake: Oral 600 240 Output: Urine 2450 1650 1200 Other: Voiding Method Indwelling Catheter Indwelling Catheter Indwelling Catheter # Bowel Movements 1 1 1 - Labs CBC & Chem 7: 09/14/22 07:03 09/14/22 07:03 Labs: Abnormal Lab Results - Last 24 Hours (Table) 09/14/22 09/14/22 Range/Units 07:03 07:03 WBC 16.3 H (3.8-10.6) k/uL RBC 3.25 L (4.30-5.90) m/uL Hgb 10.0 L (13.0-17.5) gm/dL Hct 31.1 L (39.0-53.0) % RDW 16.2 H (11.5-15.5) % Neutrophils # 14.2 H (1.3-7.7) k/uL BUN 117 H* (9-20) mg/dL Creatinine 2.06 H (0.66-1.25) mg/dL Glucose 118 H (74-99) mg/dL Calcium 8.0 L (8.4-10.2) mg/dL Total Bilirubin 3.1 H (0.2-1.3) mg/dL AST 2200 H (17-59) U/L ALT 591 H (4-49) U/L Alkaline Phosphatase 175 H (38-126) U/L Total Protein 5.6 L (6.3-8.2) g/dL Albumin 2.8 L (3.5-5.0) g/dL Assessment and Plan Plan: Assessment: 1. 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 ?Hepatorenal/cardiorenal. No hydronephrosis noted on kidney ultrasound. Creatinine 2.06 today. Nonoliguric. Disproportionately elevated BUN. No active bleeding. Not on steroids. No obstruction noted on ultrasound. ?CHF/renal congestion. 2. Hyperkalemia secondary to acute kidney injury and metabolic acidosis. Improved with diuresis. 3. Volume overload. Improved with diuresis. 4. 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 Seen by GI. No interventions planned. 5. Hypervolemic hyponatremia. Improved with diuresis. 6. Metabolic acidosis secondary to acute kidney injury. On oral bicarbonate. Better. 7. Urinary retention. Has Lee catheter. On Flomax. Plan: Maintain torsemide. Patient advised to monitor his weight closely at home and to increase to 40 mg once daily torsemide if notices worsening edema we can of more than 3 pounds in 1 week duration. Patient was advised to follow a low-salt diet and fluid restriction of less than 50 ounces per day upon discharge. Lasix 40 mg IV once today. Repeat BMP and magnesium level 2-3 days postdischarge. Avoid nephrotoxins. Continue to monitor renal function and urine output. Echocardiogram pending. Patient states he will be following up with urology, oncology and his primary team next week. Also advised to follow-up in our office in one week. Discussed in detail with patient and family members present at bedside.
--- NOTE | 2022-09-14 18:42 | CA ---
Transthoracic Echo Report Name: Nba Abarca Age: 77 Gender: M : 1945 Exam Date: 09/14/2022 13:40 Exam Location: [facility] Ht (in): 68 Wt (lb): 219 Ordering Physician: Frankie Kennedy DO Attending/Referring Phys: Chairman [employer] Co Founder Hudson Guallpa RDCS Procedure CPT: Indications: SOB, EDEMA Cardiac Hx: Technical Quality: Fair Contrast 1: Total Dose (mL): Contrast 2: Total Dose (mL): MEASUREMENTS (Male / Female) Normal Values 2D ECHO LV Diastolic Diameter PLAX 4.5 cm 4.2 - 5.9 / 3.9 - 5.3 cm LV Systolic Diameter PLAX 3.3 cm LV Fractional Shortening PLAX 25.9 % IVS Diastolic Thickness 1.9 cm 0.6 - 1.0 / 0.6 - 0.9 cm IVS Systolic Thickness 2.1 cm LVPW Diastolic Thickness 1.5 cm 0.6 - 1.0 / 0.6 - 0.9 cm LVPW Systolic Thickness 2.2 cm LV Relative Wall Thickness 0.8 RV Internal Dim ED PLAX 3.9 cm Aortic Root Diameter 4.3 cm LV Diastolic Volume MOD BP 164.7 cm??? 67 - 155 / 56 - 104 cm??? LV Systolic Volume MOD BP 100.9 cm??? 22 - 58 / 19 - 49 cm??? LV Ejection Fraction MOD BP 38.8 % >= 55 % LV Stroke Volume MOD BP 63.8 cm??? LV Diastolic Volume MOD 4C 178.2 cm??? LV Systolic Volume MOD 4C 82.5 cm??? LV Ejection Fraction MOD 4C 53.7 % LV Stroke Volume MOD 4C 95.7 cm??? LV Diastolic Length 4C 8.3 cm LV Systolic Length 4C 7.0 cm LV Diastolic Volume MOD 2C 151.8 cm??? LV Systolic Volume MOD 2C 109.2 cm??? LV Ejection Fraction MOD 2C 28.0 % LV Stroke Volume MOD 2C 42.6 cm??? LV Diastolic Length 2C 8.3 cm LV Systolic Length 2C 7.9 cm Ascending Aorta Diameter 4.2 cm M-MODE Aortic Root Diameter MM 3.9 cm LA Systolic Diameter MM 4.3 cm LA Ao Ratio MM 1.1 MV E Point Septal Separation 1.3 cm DOPPLER AV Peak Velocity 411.2 cm/s AV Peak Gradient 67.6 mmHg AV Mean Velocity 279.7 cm/s AV Mean Gradient 38.1 mmHg AV Velocity Time Integral 100.6 cm LVOT Peak Velocity 127.8 cm/s LVOT Peak Gradient 6.5 mmHg LVOT Mean Velocity 90.1 cm/s LVOT Mean Gradient 3.9 mmHg LVOT Velocity Time Integral 27.9 cm MV Deceleration [place] 227.9 cm/s??? Mitral E Point Velocity 66.8 cm/s Mitral A Point Velocity 110.8 cm/s Mitral E to A Ratio 0.6 MV Deceleration Time 292.9 ms MV E' Velocity 5.7 cm/s Mitral E to MV E' Ratio 11.7 TR Peak Velocity 250.0 cm/s TR Peak Gradient 25.0 mmHg Right Ventricular Systolic Press 35.0 mmHg PV Peak Velocity 193.1 cm/s PV Peak Gradient 14.9 mmHg FINDINGS Left Ventricle Left ventricular ejection fraction is estimated at 50-55%. Mild concentric left ventricular hypertrophy. Grade 1 diastolic dysfunction. Mild left ventricular dilatation. Right Ventricle Mild right ventricular dilatation. RVSP- 35 mm Hg. Right Atrium Mild right atrial dilatation. Left Atrium Mild left atrial dilatation. Mitral Valve Mitral valve thickened. Trace to mild mitral regurgitation. Aortic Valve Trileaflet aortic valve. Aortic valve sclerosis. Diffuse thickening of the aortic valve cusps with reduced excursion. Very calcified cusps.Moderate aortic stenosis with a peak gradient of 67.6 mmHg and a mean gradient of 38.1 mmHg. Tricuspid Valve [id number] tricuspid regurgitation. Pulmonic Valve Valvular pulmonic stenosis. PVmax-1.93 m/s Pericardium Normal pericardium. No pericardial effusion. Aorta Moderate aortic dilatation at the level of the sinuses of valsalva (root). CONCLUSIONS LVH with preserved systolic function and a calcific aortic stenosis with moderate to severe stenosis Aortic valve is difficult to visualize and may be bicuspid Previewed by: Dr. Delta Hui MD (Electronically Signed) Final Date: 14 September 2022 18:41
== END 2022-09-14 15:26 | disposition home or self-care (01) | DRG 682 ==
LOC: EC 09:13 → 3SCARD 11:49 → 6NMEDSUR 16:53 → 3SCARD 19:42 → 4SSUR 09-11 07:53 → 5NMEDONC 09-11 11:29 → OBSVTOIN 09-12 13:30
PROVIDERS: ADMIT Family Medicine; ATTEND Family Medicine
DX: N17.0 Acute kidney failure with tubular necrosis (principal); K76.7 Hepatorenal syndrome; K83.1 Obstruction of bile duct; E87.1 Hypo-osmolality and hyponatremia; E87.20 Acidosis, unspecified; C25.9 Malignant neoplasm of pancreas, unspecified; M62.82 Rhabdomyolysis; E83.39 Other disorders of phosphorus metabolism; E78.5 Hyperlipidemia, unspecified; N28.1 Cyst of kidney, acquired; E86.0 Dehydration; I10 Essential (primary) hypertension; I08.1 Rheumatic disorders of both mitral and tricuspid valves; N40.1 Benign prostatic hyperplasia with lower urinary tract symptoms; E87.5 Hyperkalemia; E87.70 Fluid overload, unspecified; R33.8 Other retention of urine; R79.89 Other specified abnormal findings of blood chemistry; Z79.899 Other long term (current) drug therapy; Z96.651 Presence of right artificial knee joint; Z96.89 Presence of other specified functional implants
CPT/HCPCS: 36415; 70450; 71046; 76770; 80048; 80053; 81001; 83605; 83735; 84100; 84132; 84300; 84484; 85025; 85610; 85730; 93005; 93306; 96361; 96374; 96375; 99285

== ENCOUNTER → 2022-09-28 | Outpatient (CLI) | payer MEDICARE | END | disposition home or self-care (01) | LOC: LABPAT 09:13 | PROVIDERS: ATTEND Urology | DX: Z53.9 Procedure and treatment not carried out, unspecified reason (principal) ==

== ENCOUNTER 2022-10-02 10:47 | Day surgery (SDC) | payer MEDICARE ==
[2022-09-28 11:55] VITALS: BMI 31.9
--- NOTE | 2022-10-02 09:20 | P.HPIHPCON ---
History of Present Illness H&P Date: 10/02/22 Chief Complaint: BPH This is a 77-year-old male with history of urinary retention, has failed trial of void. Underwent a water CMG that showed evidence of bladder tone, cystoscopy showed evidence of obstructive prostate. Option of a TURP was discussed with him. T Risk of bleeding, infection, urinary incontinence, retrograde ejaculate, erectile dysfunction, strictures and persistent retention was discussed with him. Discussed with him given his comorbidities risk of medical complications. He understood all the risk and agreed to proceed Consent for Procedure: I have explained the operation/procedure to the patient, including the risks, b enefits, side effects, alternative therapies (including not receiving the proposed treatment or service), the likelihood of the patient achieving his/her goals, and potential recuperation problems for the procedure/sedation/analgesia, as well as any blood products, if indicated. I also explained to the patient the risks, benefits and side effects of the alternatives, as well as the risks related to not receiving the proposed procedure, care, treatment, or services. Past Medical History Past Medical History: Cancer, Hyperlipidemia, Hypertension Additional Past Medical History / Comment(s): pancreatic cancer diagnosed on 07/2022 at [facility]., jaundice with biliary stent inserted at [facility]., urine retention- has indwelling perez catheter. History of Any Multi-Drug Resistant Organisms: None Reported Past Surgical History: Joint Replacement Additional Past Surgical History / Comment(s): TOTAL RIGHT KNEE., BILARY STENT., HERNIA , BENIGN TUMOR BEHIND EAR., CATARACTS Past Anesthesia/Blood Transfusion Reactions: No Reported Reaction Additional Past Anesthesia/Blood Transfusion Reaction / Comment(s): never received blood before Past Psychological History: No Psychological Hx Reported Smoking Status: Former smoker Past Alcohol Use History: None Reported Additional Past Alcohol Use History / Comment(s): QUIT 55 YRS AGO, SMOKED 3 YEARS. NO ALCOHOL IN 3-6 MONTHS. Past Drug Use History: None Reported - Past Family History Brother(s) Additional Family Medical History / Comment(s): gallstones Father Additional Family Medical History / Comment(s): prostate cancer, from "old age" Mother Additional Family Medical History / Comment(s): from PE after open heart surgery. Medications and Allergies Home Medications Medication Instructions Recorded Confirmed Type Atorvastatin [Lipitor] 40 mg PO HS 12/05/15 09/28/22 History amLODIPine [Norvasc] 10 mg PO HS 12/05/15 09/28/22 History Vits A,C,E/Lutein/Minerals 1 tab PO DAILY 08/27/22 09/28/22 History [Ocuvite with Lutein Tablet] Sodium Bicarbonate Tab 650 mg PO TID #0 tab 09/14/22 09/28/22 Rx Tamsulosin [Flomax] 0.4 mg PO PC-BRKFST #30 cap 09/14/22 09/28/22 Rx Torsemide [Demadex] 20 mg PO DAILY #30 tab 09/14/22 09/28/22 Rx Multivitamins, Thera [Multivitamin 1 tab PO DAILY 09/28/22 09/28/22 History (formulary)] Allergies Allergy/AdvReac Type Severity Reaction Status Date / Time No Known Allergies Allergy Verified 09/28/22 11:28 Surgical - Exam - General no distress, no pain - Eyes normal ocular movement, no pale - ENT normal nares, normal mucosa - Respiratory normal expansion, normal respiratory effort - Abdomen Abdomen: soft, non tender Assessment and Plan Assessment: OR for TURP
[~2022-10-02 10:47] MED LIST: DEXAMETHASONE SOD PHOSPHATE 4 MG/ML 1 ML VIAL IV ONE; GENTAMICIN 120 MG in SODIUM CHLORIDE 0.9% 100 ML IVPB PRN; HYDROmorphone 0.5 MG/0.5 ML SYRINGE IVP PRN; LACTATED RINGERS 1,000 ML IV SCH; LIDOCAINE 1% (10MG/ML) FOR IV START INTRADERMA PRN; MIDAZOLAM 2 MG/2 ML VIAL IV PRN; ONDANSETRON 4 MG/2 ML VIAL IVP ONE
[2022-10-02 12:13] LABS: ALT 51 U/L (4-49); AST 73 U/L (17-59); African American GFR (CKD) >90 (>60 ml/min/1.73 sqM); Albumin 3.2 g/dL (3.5-5.0); Alkaline Phosphatase 196 U/L (38-126); Anion Gap 11 mmol/L; Blood Urea Nitrogen 18 mg/dL (9-20); Calcium 7.9 mg/dL (8.4-10.2); Carbon Dioxide 27 mmol/L (22-30); Chloride 101 mmol/L (98-107); Glucose 107 mg/dL (74-99); Non-African American GFR(CKD) 86 (>60 ml/min/1.73 sqM); Potassium 3.6 mmol/L (3.5-5.1); Sodium 139 mmol/L (137-145); Total Bilirubin 1.4 mg/dL (0.2-1.3); Total Protein 6.4 g/dL (6.3-8.2)
[2022-10-02] MEDS ORDERED: PROPOFOL 10 MG/ML 20 ML VIAL IV ONE (12:35)
[2022-10-02] MEDS ORDERED: ePHEDrine 50 MG/ML 1 ML VIAL ONE (12:35)
[2022-10-02] MEDS ORDERED: LIDOCAINE 2% INJ 20 MG/ML (2 ML VIAL) ONE (12:35)
[2022-10-02] MEDS ORDERED: fentaNYL (PF) 50 MCG/ML 2 ML AMP ONE (12:35)
[2022-10-02] MEDS ORDERED: PHENYLEPHRINE-0.9% NACL SYG 1,000 MCG/10 ML SYRINGE ONE (12:35)
[2022-10-02] MEDS ORDERED: MIDAZOLAM 2 MG/2 ML VIAL ONE (12:35)
[2022-10-02] MEDS ORDERED: SUCCINYLCHOLINE CHLORIDE 200 MG/10 ML VIAL IV ONE (12:35)
[2022-10-02 13:03] LABS: Anisocytosis Slight; Basophils % (A) 0 %; Eosinophils # (A) 0.1 k/uL (0-0.7); Eosinophils % (A) 2 %; HGB 8.9 gm/dL (13.0-17.5); Hypochromasia Slight; Lymphocytes # (A) 1.3 k/uL (1.0-4.8); Lymphocytes % (A) 16 %; MCH 29.3 pg (25.0-35.0); MCHC 31.8 g/dL (31.0-37.0); MCV 92.4 fL (80.0-100.0); Mean Platelet Volume 8.6; Monocytes # (A) 0.6 k/uL (0-1.0); Monocytes % (A) 7 %; Neutrophils # (A) 5.8 k/uL (1.3-7.7); Neutrophils % (A) 73 %; Platelet Count 233 k/uL (150-450); RBC 3.03 m/uL (4.30-5.90); RDW 16.2 % (11.5-15.5); WBC 7.9 k/uL (3.8-10.6)
[2022-10-02] MEDS ORDERED: LACTATED RINGERS 1,000 ML IV ONE (13:44)
--- NOTE | 2022-10-02 14:36 | P.OP ---
Date of Procedure: 10/02/22 Preoperative Diagnosis: BPH, urinary retention Postoperative Diagnosis: same Procedure(s) Performed: Cystoscopy, TURP (bipolar) Anesthesia: KESHAWN Surgeon: Enrrique Wisdom Estimated Blood Loss (ml): 50 Pathology: none sent Condition: stable Disposition: PACU Indications for Procedure: This is a 77-year-old male with history of urinary retention, has failed trial of void. Underwent a water CMG that showed evidence of bladder tone, cystoscopy showed evidence of obstructive prostate. Option of a TURP was discussed with him. T Risk of bleeding, infection, urinary incontinence, retrograde ejaculate, erectile dysfunction, strictures and persistent retention was discussed with h im. Discussed with him given his comorbidities risk of medical complications. He understood all the risk and agreed to proceed Description of Procedure: patient brought to the operating room, general anesthesia was induced. He was prepped and draped in sterile fashion and placed in a dorsal lithotomy position. Resectoscope fitted with 25-Venezuelan sheath was inserted per urethra, cystoscopy was performed which showed no abnormality within the bladder, but of note the bladder was heavily trabeculated. There was enlargement of the bilateral lateral lobes, prostate was completely occlusive . Using the bipolar button the prostate was vaporized down to the surgical capsule. Area of resection was fulgurated, hemostasis was achieved using cautery. Resection was carried distal to the bladder neck and staying proximal to the Veru. Both ureteral orifices were visualized and they were not injured during resection. Repeat cystoscopy showed no evidence of bleeding,s. The prostatic fossa was wide open. Resectoscope was withdrawn and a 22-Venezuelan Lee was placed with return of clear urine. The bladder was irrigated to clear. Patient tolerated procedure well was taken to recovery in stable condition
[2022-10-02 14:58] VITALS: TEMP 97.4
[2022-10-02 16:05] VITALS: RESP 16
[2022-10-02 16:34] VITALS: BP 116/72; PULSE 74
== END 2022-10-02 16:40 ==
LOC: OR 10:47
PROVIDERS: ATTEND Urology
DX: N40.1 Benign prostatic hyperplasia with lower urinary tract symptoms (principal); R33.8 Other retention of urine; I10 Essential (primary) hypertension; E78.5 Hyperlipidemia, unspecified; Z85.07 Personal history of malignant neoplasm of pancreas; Z87.891 Personal history of nicotine dependence
CPT/HCPCS: 52601; 86900; 86901; 80053; 85025; 86850; J2250; J0330; J1100; J0690; J2405; J3010; J2370; J2704; J2001

== ENCOUNTER 2022-10-19 07:42 | Day surgery (SDC) | payer MEDICARE ==
[~2022-10-19 07:42] MED LIST changes: +ACETAMINOPHEN TAB 500 MG TAB PO PRN; -GENTAMICIN 120 MG in SODIUM CHLORIDE 0.9% 100 ML IVPB PRN; +HEPARIN SODIUM,PORCINE/PF 5,000 UNIT/0.5 ML SYRINGE SQ PRN; -LIDOCAINE 1% (10MG/ML) FOR IV START INTRADERMA PRN; +Pre Op ABX Message 1 EACH MISC MISCELLANE ONE
--- NOTE | 2022-10-19 08:30 | P.GSHP ---
History of Present Illness H&P Date: 10/19/22 Chief Complaint: Pancreatic cancer This a 77-year-old male was recently diagnosed with pancreatic cancer. Patient presents today for Port-A-Cath insertion. Past Medical History Past Medical History: Cancer, Hyperlipidemia, Hypertension Additional Past Medical History / Comment(s): BPH with recent turp/still has perez, pancreatic cancer diagnosed on 08/22/22 at [facility]/pt had 1st dose chemo 10/15/[address] [facility], skin cancer with removal, recent acute kidney injury since resolved. History of Any Multi-Drug Resistant Organisms: None Reported Past Surgical History: Hernia Repair, Joint Replacement, Prostate Surgery Additional Past Surgical History / Comment(s): TURP, biliary stent at [facility], pancreatic bx, RIGHT KNEE REPLACED, cataract removals, colonoscopy, bilateral inguinal hernia repair. Past Anesthesia/Blood Transfusion Reactions: No Reported Reaction Additional Past Anesthesia/Blood Transfusion Reaction / Comment(s): never received blood before Smoking Status: Former smoker - Past Family History Brother(s) Additional Family Medical History / Comment(s): gallstones Father Family Medical History: Cancer Additional Family Medical History / Comment(s): prostate cancer, from "old age" Mother Family Medical History: Pulmonary Embolus Additional Family Medical History / Comment(s): from PE after open heart surgery. Medications and Allergies Home Medications Medication Instructions Recorded Confirmed Type Atorvastatin [Lipitor] 40 mg PO HS 12/05/15 10/15/22 History amLODIPine [Norvasc] 10 mg PO HS 12/05/15 10/15/22 History Vits A,C,E/Lutein/Minerals 1 tab PO DAILY 08/27/22 10/15/22 History [Ocuvite with Lutein Tablet] Tamsulosin [Flomax] 0.4 mg PO PC-BRKFST #30 cap 09/14/22 10/15/22 Rx Ondansetron [Zofran] 1 tab PO TID PRN 10/15/22 10/15/22 History Allergies Allergy/AdvReac Type Severity Reaction Status Date / Time No Known Allergies Allergy Verified 10/17/22 12:12 Surgical - Exam - General well developed, no distress - Eyes PERRL - ENT normal pinna - Neck no masses - Respiratory normal expansion - Cardiovascular Rhythm: regular - Abdomen Abdomen: soft, non tender Assessment and Plan Assessment: Pancreas cancer. We'll perform Port-A-Cath insertion
[2022-10-19] MEDS ORDERED: fentaNYL (PF) 50 MCG/ML 2 ML AMP ONE (08:52)
[2022-10-19] MEDS ORDERED: PHENYLEPHRINE-0.9% NACL SYG 1,000 MCG/10 ML SYRINGE ONE (08:52)
[2022-10-19] MEDS ORDERED: MIDAZOLAM 2 MG/2 ML VIAL ONE (08:52)
[2022-10-19] MEDS ORDERED: PROPOFOL 10 MG/ML 20 ML VIAL IV ONE (08:52)
[2022-10-19] MEDS ORDERED: BUPIVACAINE (PF) 0.25% 30 ML VIAL SQ ONE ×3 (09:10→09:19)
[2022-10-19] MEDS ORDERED: IOPAMIDOL-370 100ML BTL MISCELLANE ONE (09:14)
[2022-10-19 09:35] VITALS: TEMP 97.4
--- NOTE | 2022-10-19 09:49 | P.OP ---
Date of Procedure: 10/19/22 Preoperative Diagnosis: Pancreatic cancer Postoperative Diagnosis: Pancreatic cancer Procedure(s) Performed: Right subclavian Port-A-Cath Anesthesia: KESHAWN Surgeon: Jasmhid Fuentes Estimated Blood Loss (ml): 5 Pathology: none sent Condition: stable Disposition: PACU Description of Procedure: The patient was placed on the operating table in the supine position. The patient received IV sedation. The patient's chest was prepped and draped in the usual sterile fashion. A roll had been placed between the shoulder blades in a longitudinal fashion. After prepping and draping the skin was anesthetized 1% local Xylocaine. And then using the Seldinger technique the subclavian vein was cannulated. A wire was placed into the vein and fluoroscopy position the wire at the atrial caval junction. Next the dilator sheath was placed over top the wire and the wire was withdrawn. The catheter was positioned at the atriocaval position. The catheter was placed through the sheath after the dilator was withdrawn. The sheath was then withdrawn. Position of the catheter was confirmed with fluoroscopy. The Port-A-Cath was connected to the catheter. The Port-A-Cath was flushed with saline and then heparinized saline. The skin was closed interrupted 3-0 Monocryl suture. Dermabond was applied. Patient tolerated procedure well and was sent to recovery room stable condition.
[2022-10-19 09:52] VITALS: RESP 16
--- NOTE | 2022-10-19 10:12 | XR ---
EXAMINATION TYPE: XR chest 1V portable DATE OF EXAM: 10/19/2022 COMPARISON: Chest x-ray September 10, 2022 HISTORY: Port placement. TECHNIQUE: Single AP portable frontal upright view of the chest is obtained. FINDINGS: There is new right subclavian Mediport catheter terminating in SVC. There is persistent low lung volumes without right-sided pneumothorax. Left basilar opacity favors atelectasis. Patchy righ t basilar atelectasis is seen. The cardiac silhouette size is upper limits of normal with atheroscler otic and ectatic thoracic aorta. The osseous structures are intact. IMPRESSION: As above.
[2022-10-19 10:46] VITALS: BP 108/67; PULSE 75
--- NOTE | 2022-10-20 05:08 | FL ---
EXAMINATION TYPE: FL guided central line placemt DATE OF EXAM: 10/19/2022 CLINICAL HISTORY: Port-A-Cath insertion. TECHNIQUE: Fluoroscopy. COMPARISON: None. FINDINGS: Fluoroscopic guidance was provided during Port-A-Cath insertion procedure performed by Dr. Fuentes. A total of 5 seconds of fluoroscopic time was utilized during the procedure and 1 spot im ages was acquired. Intraoperative image obtained shows right subclavian Mediport catheter terminating in the SVC. IMPRESSION: As Above. TOTAL DAP = 0.1628 Gy cm2
== END 2022-10-19 11:09 | disposition home or self-care (01) ==
LOC: OR 07:42
PROVIDERS: ATTEND Surgery
DX: Z45.2 Encounter for adjustment and management of vascular access device (principal); C25.9 Malignant neoplasm of pancreas, unspecified; I10 Essential (primary) hypertension; E78.5 Hyperlipidemia, unspecified; N17.9 Acute kidney failure, unspecified; N40.0 Benign prostatic hyperplasia without lower urinary tract symptoms; Z92.21 Personal history of antineoplastic chemotherapy; Z87.891 Personal history of nicotine dependence; Z79.899 Other long term (current) drug therapy
CPT/HCPCS: 36561; 77001; 71045; C1788; J2250; J1100; J2405; J3010; J1642; J2370; J2704; Q9967; J1644

== ENCOUNTER → 2022-12-07 | Outpatient (CLI) | payer MEDICARE ==
--- NOTE | 2022-12-07 15:00 | US ---
EXAMINATION TYPE: US venous doppler duplex LE BI DATE OF EXAM: 12/07/2022 2:44 PM COMPARISON: NONE CLINICAL INDICATION: Male, 77 years old with history of RLE; I82.40; No hx of DVT. Patient is not on blood thinners. Current chemotherapy patient. Painful to touch right leg. SIDE PERFORMED: Bilateral TECHNIQUE: The lower extremity deep venous system is examined utilizing real time linear array sonog amy with graded compression, doppler sonography and color-flow sonography. VESSELS IMAGED: Common Femoral Vein Deep Femoral Vein Greater Saphenous Vein * Femoral Vein Popliteal Vein Small Saphenous Vein * Proximal Calf Veins (* superficial vessels) Right Leg: No evidence of DVT. Scanned patient's area of concern right lateral calf, no abnormalities seen by ultrasound at this julita e. Left Leg: No evidence of DVT. IMPRESSION: 1. No suspicious ultrasound changes to suggest deep venous thrombosis bilateral lower extremities.
== END | disposition home or self-care (01) ==
LOC: RADUSWWP 14:11
PROVIDERS: ATTEND Family Medicine
DX: I82.401 Acute embolism and thrombosis of unspecified deep veins of right lower extremity (principal)
CPT/HCPCS: 93970

== ENCOUNTER 2023-01-06 17:22 | Emergency (ER) | payer MEDICARE ==
[2023-01-06] MEDS ORDERED: SODIUM CHLORIDE 0.9% 1,000 ML IV STA ×2 (18:02→20:09)
--- NOTE | 2023-01-06 18:07 | ED ---
Weakness HPI - General Chief complaint: Weakness Stated complaint: Dehydrated Time Seen by Provider: 01/06/23 17:53 Source: patient Mode of arrival: ambulatory Limitations: no limitations - History of Present Illness Initial comments: Patient is a 77-year-old male presenting to the emergency room with generalized weakness which has been ongoing for approximately 1 week despite receiving 1 unit of packed red blood cells for anemia earlier in the week. He completed his last of his third round of chemotherapy for his recently diagnosed pancreatic cancer on 12/31/2022 and has not felt well since. He denies any specific complaints but just reports generalized fatigue and weakness. He denies any focal neurological deficits, altered mental status, chest pain, abdominal pain, nausea, vomiting, changes in occasional chronic diarrhea, dysuria, hematuria, fevers or chills. In addition to his pancreatic cancer he is a past medical history significant for hypertension and hyperlipidemia. - Related Data Home Medications Medication Instructions Recorded Confirmed Atorvastatin [Lipitor] 40 mg PO HS 12/05/15 01/06/23 amLODIPine [Norvasc] 10 mg PO HS 12/05/15 01/06/23 Ondansetron [Zofran] 1 tab PO Q4H PRN 10/15/22 01/06/23 Furosemide [Lasix] 20 mg PO DAILY 01/06/23 01/06/23 Hydrocortisone 2.5% Lotion 1 applic TOPICAL TID 01/06/23 01/06/23 Lactulose [Constulose] 10 gm PO DAILY 01/06/23 01/06/23 Lidocaine-Prilocaine Cream [Emla 1 applic TOPICAL DAILY PRN 01/06/23 01/06/23 Cream 2.5%/2.5%] Multivitamins, Thera [Multivitamin 1 tab PO DAILY 01/06/23 01/06/23 (formulary)] Nitrofurantoin Monohyd/M-Cryst 100 mg PO DAILY 01/06/23 01/06/23 [Macrobid] Potassium Chloride ER [K-Dur 20] 20 meq PO DAILY 01/06/23 01/06/23 Previous Rx's Medication Instructions Recorded Tamsulosin [Flomax] 0.4 mg PO PC-BRKFST #30 cap 09/14/22 Allergies Allergy/AdvReac Type Severity Reaction Status Date / Time No Known Allergies Allergy Verified 01/06/23 20:54 Review of Systems ROS Statement: Those systems with pertinent positive or pertinent negative responses have been documented in the HPI. ROS Other: All systems not noted in ROS Statement are negative. Past Medical History Past Medical History: Hyperlipidemia, Hypertension Additional Past Medical History / Comment(s): pancreatic cancer diagnosed on 08/22/22 at [facility] History of Any Multi-Drug Resistant Organisms: None Reported Past Surgical History: Joint Replacement Additional Past Surgical History / Comment(s): RIGHT KNEE REPLACED, stent Past Anesthesia/Blood Transfusion Reactions: No Reported Reaction Additional Past Anesthesia/Blood Transfusion Reaction / Comment(s): never re ceived blood before Past Psychological History: No Psychological Hx Reported Smoking Status: Former smoker Past Alcohol Use History: None Reported Past Drug Use History: None Reported - Past Family History Brother(s) Additional Family Medical History / Comment(s): gallstones Father Additional Family Medical History / Comment(s): prostate cancer, from "old age" Mother Additional Family Medical History / Comment(s): from PE after open heart surgery. General Exam Limitations: no limitations Course Vital Signs 01/06/23 01/06/23 01/06/23 17:24 19:01 20:45 Temperature 98.3 F Pulse Rate 111 H 92 96 Respiratory 24 18 22 Rate Blood Pressure 111/58 112/64 115/65 O2 Sat by Pulse 96 97 95 Oximetry 01/06/23 01/07/23 22:57 00:04 Temperature Pulse Rate 98 96 Respiratory 24 18 Rate Blood Pressure 113/65 117/68 O2 Sat by Pulse 96 96 Oximetry Medical Decision Making - Medical Decision Making Was pt. sent in by a medical professional or institution (, PA, NATIONAL SALES MANAGER, urgent care, hospital, or retirement...) When possible be specific @ -No Did you speak to anyone other than the patient for history (EMS, parent, family, police, friend...)? What history was obtained from this source @ -Yes, spoke with at bedside regarding details of presenting illness and recent oncologic treatment. Did you review nursing and triage notes (agree or disagree)? Why? @ -I reviewed and agree with nursing and triage notes Were old charts reviewed (outside hosp., previous admission, EMS record, old EKG, old radiological studies, urgent care reports/EKG's, retirement records)? Report findings @ -Yes, laboratory studies from outside facility with patient obtained at the beginning of the week reviewed demonstrating anemia with hemoglobin of 7.9 nasima l BUN and creatinine. Differential Diagnosis (chest pain, altered mental status, abdominal pain women, abdominal pain men, vaginal bleeding, weakness, fever, dyspnea, syncope, headac he, dizziness, GI bleed, back pain, seizure, CVA, palpatations, mental health, musculoskeletal)? @ -Differential Weakness: Hypoglycemia, shock, sepsis, hyponatremia, anemia, infection, NV, ETOH, adverse medicine reaction, overdose, stroke, this is not meant to be an all-inclusive list. EKG interpreted by me (3pts min.). @ - X-rays interpreted by me (1pt min.). @ -Chest x-ray two-view: Low lung volumes without any focal consolidation CT interpreted by me (1pt min.). @ -CT of the chest abdomen and pelvis: Bibasilar pleural effusions without focal consolidation. No evidence of free fluid or pneumoperitoneum. Per radiologist low density region in the liver not represent edema with pneumobilia, gallbladder air correlate for ascending infection. Pancreatic les ion in the uncinate process may be a fractured smaller. Mild inflammatory changes around the sigmoid colon correlating for colitis. U/S interpreted by me (1pt. min.). @ -None done What testing was considered but not performed or refused? (CT, X-rays, U/S, labs)? Why? @ -None What meds were considered but not given or refused? Why? @ -None Did you discuss the management of the patient with other professionals (professionals i.e. , PA, NATIONAL SALES MANAGER, lab, RT, psych nurse, criminal justice social worker, admiralty lawyer, teacher, court officer, outpatient case manager)? Give summary @ -Yes, spoke with transfer team at [facility] along with Dr. Gutierrez who is accepting of admission to general inpatient unit; will continue IV hydration and antibiotic therapy until that available for transfer can be arranged. Was smoking cessation discussed for >3mins.? @ -No Was critical care preformed (if so, how long)? @ -No Were there social determinants of health that impacted care today? How? (Homelessness, low income, unemployed, alcoholism, drug addiction, transportation, low edu. Level, literacy, decrease access to med. care, group home, rehab)? @ -No Was there de-escalation of care discussed even if they declined (Discuss DNR or withdrawal of care, Hospice)? DNR status @ -No What co-morbidities impacted this encounter? (DM, HTN, Smoking, COPD, CAD, Cancer, CVA, ARF, Chemo, Hep., AIDS, mental health diagnosis, sleep apnea, morbid obesity)? @ -None Was patient admitted / discharged? Hospital course, mention meds given and route, prescriptions, significant lab abnormalities, going to OR and other pertinent info. @ -77-year-old male presenting the emergency room with generalized weakness despite completion of his chemotherapy 5 days ago and a blood transfusion after his chemotherapy was completed. No focal neurological deficits or other complaints. Will start workup for weakness with EKG, chest x-ray, CBC, CMP, type and cross, lactic acid, blood cultures, TSH, magnesium, troponin, coag, phosphorus, and urinalysis. Will give 1 L IV fluid bolus. Third spacing noted to bilateral lower extremities however this is likely not secondary to volume overload but rather low albumin level from chemotherapy and will proceed with IV hydration. Laboratory studies reveal an elevated WBC of 35.6 which was which was normal on 12/31/2022 at 4.7. Anemia persists but improved from previous reading of 7.9- 8.5. Thrombocytopenia is noted with a platelet count of 85 but stable. Coags are normal. Lactic acid is elevated at 2.3. BUN is elevated at 28 with a normal creatinine. Electrolyte derangement is noted with a low sodium of 123 elevated potassium 5.3, low chloride 95 low carbon dioxide 16. Glucose elevated at 129. Total bilirubin elevated at 1.8, AST elevated 343, AST elevated at 167, alkaline phosphate elevated at 577, albumin low at 2.6 TSH elevated at 6.9. Will add free T4, amylase lipase and proBNP. Chest x-ray demonstrates bibasilar atelecta sis versus pulmonary vascular congestion given poor respiratory effort without crackles suspect bibasilar atelectasis will continue IV hydration but be cautious. No hypotension noted to require septic protocol IV hydration. Will obtain CT of the chest abdomen and pelvis for further evaluation and etiology of leukocytosis elevated alkaline phosphatase and liver enzymes. ProBNP stable at 1780 amylase and lipase normal, free T4 normal, viral swabbing for COVID, influenza and RSV all negative. Reflex lactic acid normalized at 1.4. CT of the abdomen and pelvis demonstrated air within the gallbladder lumen and intrahepatic pneumobilia with biliary stent in place and mild intrahepatic biliary dilatation concerning for Ascending cholangitis. Inflammation around sigmoid colon concerning for colitis and redemonstration of pancreatic lesion. Bi bilateral pleural effusions are seen as well. These findings were discussed with patient and spouse at bedside. we will give Zosyn IV. Advise recommended transfer to patient's established facility of [facility] patient and spouse are agreeable to this plan however patient does reiterate his DO NOT RESUSCITATE status. Spoke with Dr. Gutierrez at [facility] who is accepting of transfer to general inpatient unit and was advised that patient will be transferred once bed becomes available and will have to stay here in the emergency room until the interim. Will continue gentle IV hydration of 0.9 normal saline at 50 mL an hour Zosyn 3.125 mg every 8 hours along with Tylenol for fevers Ativan for anxiety and sodium bicarbonate orally to replete sodium bicarbonate levels. Will resume home medications of Zofran orally as needed along with Flomax Will hold hypertensive medications as blood pressure is normal tense of at this time and will hold diuretics as IV hydration required at this time. Patient to be transferred in serious condition for further evaluation and treatment at [facility] with accepting provider Dr. Gutierrez for Ascending c holangitis. Undiagnosed new problem with uncertain prognosis? @ -No Drug Therapy requiring intensive monitoring for toxicity (Heparin, Nitro, In sulin, Cardizem)? @ -No Were any procedures done? @ -No Diagnosis/symptom? @ -Ascending cholangitis. Acute, or Chronic, or Acute on Chronic? @ -Acute Uncomplicated (without systemic symptoms) or Complicated (systemic symptoms)? @ -Complicated Side effects of treatment? @ -No Exacerbation, Progression, or Severe Exacerbation? @ -No Poses a threat to life or bodily function? How? (Chest pain, USA, NV, pneumonia, PE, COPD, DKA, ARF, appy, cholecystitis, CVA, Diverticulitis, Homicidal, Suicidal, threat to staff... and all critical care pts) @ -Yes, high risk for progressive of infection, sepsis and septic shock Case discussed with Dr. Gan. - Lab Data Result diagrams: 01/06/23 19:01 01/06/23 19:01 Lab Results 01/06/23 01/06/23 01/06/23 Range/Units 19:00 19:01 19:01 WBC 35.6 H (3.8-10.6) k/uL RBC 2.79 L (4.30-5.90) m/uL Hgb 8.5 L (13.0-17.5) gm/dL Hct 24.7 L (39.0-53.0) % MCV 88.4 (80.0-100.0) fL MCH 30.6 (25.0-35.0) pg MCHC 34.6 (31.0-37.0) g/dL RDW 21.1 H (11.5-15.5) % Plt Count 85 L (150-450) k/uL MPV 9.9 Neutrophils % (Manual) 88 % Lymphocytes % (Manual) 2 % Monocytes % (Manual) 9 % Metamyelocytes % 1 % Neutrophils # (Manual) 31.33 H (1.3-7.7) k/uL Lymphocytes # (Manual) 0.71 L (1.0-4.8) k/uL Monocytes # (Manual) 3.20 H (0-1.0) k/uL Metamyelocytes # (Man) 0.36 H (0) k/uL Nucleated RBCs 0 (0-0) /100 WBC Polychromasia Present Hypochromasia (manual) Present Anisocytosis Moderate Anisocytosis (manual) Present PT 11.5 (9.0-12.0) sec INR 1.1 (<1.2) APTT 27.7 (22.0-30.0) sec Sodium (137-145) mmol/L Potassium (3.5-5.1) mmol/L Chloride (98-107) mmol/L Carbon Dioxide (22-30) mmol/L Anion Gap mmol/L BUN (9-20) mg/dL Creatinine (0.66-1.25) mg/dL Est GFR (CKD-EPI)AfAm (>60 ml/min/1.73 sqM) Est GFR (CKD-EPI)NonAf (>60 ml/min/1.73 sqM) Glucose (74-99) mg/dL Lactic Ac Sepsis Rflx Plasma Lactic Acid Mehdi (0.7-2.0) mmol/L Calcium (8.4-10.2) mg/dL Magnesium (1.6-2.3) mg/dL Total Bilirubin (0.2-1.3) mg/dL AST (17-59) U/L ALT (4-49) U/L Alkaline Phosphatase (38-126) U/L Troponin I (0.000-0.034) ng/mL NT-Pro-B Natriuret Pep pg/mL Total Protein (6.3-8.2) g/dL Albumin (3.5-5.0) g/dL Amylase (30-110) U/L Lipase (23-300) U/L TSH (0.465-4.680) mIU/L Free T4 (0.78-2.19) ng/dL Influenza Type A (PCR) (Not Detectd) Influenza Type B (PCR) (Not Detectd) RSV (PCR) (Not Detectd) SARS-CoV-2 (PCR) (Not Detectd) Blood Type O Positive Blood Type Recheck O Pos Bld Type Recheck Status No Antibody Screen NEGATIVE Spec Expiration Date 01/09/2023 - 229901/06/23 01/06/23 01/06/23 Range/Units 19:01 19:01 19:01 WBC (3.8-10.6) k/uL RBC (4.30-5.90) m/uL Hgb (13.0-17.5) gm/dL Hct (39.0-53.0) % MCV (80.0-100.0) fL MCH (25.0-35.0) pg MCHC (31.0-37.0) g/dL RDW (11.5-15.5) % Plt Count (150-450) k/uL MPV Neutrophils % (Manual) % Lymphocytes % (Manual) % Monocytes % (Manual) % Metamyelocytes % % Neutrophils # (Manual) (1.3-7.7) k/uL Lymphocytes # (Manual) (1.0-4.8) k/uL Monocytes # (Manual) (0-1.0) k/uL Metamyelocytes # (Man) (0) k/uL Nucleated RBCs (0-0) /100 WBC Polychromasia Hypochromasia (manual) Anisocytosis Anisocytosis (manual) PT (9.0-12.0) sec INR (<1.2) APTT (22.0-30.0) sec Sodium 123 L (137-145) mmol/L Potassium 5.3 H (3.5-5.1) mmol/L Chloride 95 L (98-107) mmol/L Carbon Dioxide 16 L (22-30) mmol/L Anion Gap 12 mmol/L BUN 28 H (9-20) mg/dL Creatinine 0.79 (0.66-1.25) mg/dL Est GFR (CKD-EPI)AfAm >90 (>60 ml/min/1.73 sqM) Est GFR (CKD-EPI)NonAf 88 (>60 ml/min/1.73 sqM) Glucose 129 H (74-99) mg/dL Lactic Ac Sepsis Rflx Plasma Lactic Acid Mehdi 2.3 H* (0.7-2.0) mmol/L Calcium 8.2 L (8.4-10.2) mg/dL Magnesium 1.8 (1.6-2.3) mg/dL Total Bilirubin 1.8 H (0.2-1.3) mg/dL AST 343 H (17-59) U/L ALT 167 H (4-49) U/L Alkaline Phosphatase 577 H (38-126) U/L Troponin I 0.024 (0.000-0.034) ng/mL NT-Pro-B Natriuret Pep pg/mL Total Protein 5.5 L (6.3-8.2) g/dL Albumin 2.9 L (3.5-5.0) g/dL Amylase (30-110) U/L Lipase (23-300) U/L TSH 6.970 H (0.465-4.680) mIU/L Free T4 (0.78-2.19) ng/dL Influenza Type A (PCR) (Not Detectd) Influenza Type B (PCR) (Not Detectd) RSV (PCR) (Not Detectd) SARS-CoV-2 (PCR) (Not Detectd) Blood Type Blood Type Recheck Bld Type Recheck Status Antibody Screen Spec Expiration Date 01/06/23 01/06/23 01/06/23 Range/Units 19:39 20:42 20:45 WBC (3.8-10.6) k/uL RBC (4.30-5.90) m/uL Hgb (13.0-17.5) gm/dL Hct (39.0-53.0) % MCV (80.0-100.0) fL MCH (25.0-35.0) pg MCHC (31.0-37.0) g/dL RDW (11.5-15.5) % Plt Count (150-450) k/uL MPV Neutrophils % (Manual) % Lymphocytes % (Manual) % Monocytes % (Manual) % Metamyelocytes % % Neutrophils # (Manual) (1.3-7.7) k/uL Lymphocytes # (Manual) (1.0-4.8) k/uL Monocytes # (Manual) (0-1.0) k/uL Metamyelocytes # (Man) (0) k/uL Nucleated RBCs (0-0) /100 WBC Polychromasia Hypochromasia (manual) Anisocytosis Anisocytosis (manual) PT (9.0-12.0) sec INR (<1.2) APTT (22.0-30.0) sec Sodium (137-145) mmol/L Potassium (3.5-5.1) mmol/L Chloride (98-107) mmol/L Carbon Dioxide (22-30) mmol/L Anion Gap mmol/L BUN (9-20) mg/dL Creatinine (0.66-1.25) mg/dL Est GFR (CKD-EPI)AfAm (>60 ml/min/1.73 sqM) Est GFR (CKD-EPI)NonAf (>60 ml/min/1.73 sqM) Glucose (74-99) mg/dL Lactic Ac Sepsis Rflx Y Plasma Lactic Acid Mehdi (0.7-2.0) mmol/L Calcium (8.4-10.2) mg/dL Magnesium (1.6-2.3) mg/dL Total Bilirubin (0.2-1.3) mg/dL AST (17-59) U/L ALT (4-49) U/L Alkaline Phosphatase (38-126) U/L Troponin I (0.000-0.034) ng/mL NT-Pro-B Natriuret Pep 1780 pg/mL Total Protein (6.3-8.2) g/dL Albumin (3.5-5.0) g/dL Amylase 53 (30-110) U/L Lipase 50 (23-300) U/L TSH (0.465-4.680) mIU/L Free T4 1.17 (0.78-2.19) ng/dL Influenza Type A (PCR) Not Detected (Not Detectd) Influenza Type B (PCR) Not Detected (Not Detectd) RSV (PCR) Not Detected (Not Detectd) SARS-CoV-2 (PCR) Not Detected (Not Detectd) Blood Type Blood Type Recheck Bld Type Recheck Status Antibody Screen Spec Expiration Date 01/06/23 Range/Units 22:45 WBC (3.8-10.6) k/uL RBC (4.30-5.90) m/uL Hgb (13.0-17.5) gm/dL Hct (39.0-53.0) % MCV (80.0-100.0) fL MCH (25.0-35.0) pg MCHC (31.0-37.0) g/dL RDW (11.5-15.5) % Plt Count (150-450) k/uL MPV Neutrophils % (Manual) % Lymphocytes % (Manual) % Monocytes % (Manual) % Metamyelocytes % % Neutrophils # (Manual) (1.3-7.7) k/uL Lymphocytes # (Manual) (1.0-4.8) k/uL Monocytes # (Manual) (0-1.0) k/uL Metamyelocytes # (Man) (0) k/uL Nucleated RBCs (0-0) /100 WBC Polychromasia Hypochromasia (manual) Anisocytosis Anisocytosis (manual) PT (9.0-12.0) sec INR (<1.2) APTT (22.0-30.0) sec Sodium (137-145) mmol/L Potassium (3.5-5.1) mmol/L Chloride (98-107) mmol/L Carbon Dioxide (22-30) mmol/L Anion Gap mmol/L BUN (9-20) mg/dL Creatinine (0.66-1.25) mg/dL Est GFR (CKD-EPI)AfAm (>60 ml/min/1.73 sqM) Est GFR (CKD-EPI)NonAf (>60 ml/min/1.73 sqM) Glucose (74-99) mg/dL Lactic Ac Sepsis Rflx Plasma Lactic Acid Mehdi 1.4 (0.7-2.0) mmol/L Calcium (8.4-10.2) mg/dL Magnesium (1.6-2.3) mg/dL Total Bilirubin (0.2-1.3) mg/dL AST (17-59) U/L ALT (4-49) U/L Alkaline Phosphatase (38-126) U/L Troponin I (0.000-0.034) ng/mL NT-Pro-B Natriuret Pep pg/mL Total Protein (6.3-8.2) g/dL Albumin (3.5-5.0) g/dL Amylase (30-110) U/L Lipase (23-300) U/L TSH (0.465-4.680) mIU/L Free T4 (0.78-2.19) ng/dL Influenza Type A (PCR) (Not Detectd) Influenza Type B (PCR) (Not Detectd) RSV (PCR) (Not Detectd) SARS-CoV-2 (PCR) (Not Detectd) Blood Type Blood Type Recheck Bld Type Recheck Status Antibody Screen Spec Expiration Date - Radiology Data Radiology results: report reviewed, image reviewed Disposition Clinical Impression: Ascending cholangitis Disposition: OTHER INSTITUTION NOT DEFINED Condition: Serious Referrals: Abril Nolasco DO [Primary Care Provider] - 1-2 days Time of Disposition: 22:10 - Out of Hospital Transfer - Req. Specs Out of Hospital Transfer - Requested Specifics: Other Non-Acute (Arturo Young [facility] accepting physician Dr. Gutierrez)
[2023-01-06 19:24] LABS: ALT 167 U/L (4-49); AST 343 U/L (17-59); African American GFR (CKD) >90 (>60 ml/min/1.73 sqM); Albumin 2.9 g/dL (3.5-5.0); Alkaline Phosphatase 577 U/L (38-126); Anion Gap 12 mmol/L; Blood Urea Nitrogen 28 mg/dL (9-20); Calcium 8.2 mg/dL (8.4-10.2); Carbon Dioxide 16 mmol/L (22-30); Chloride 95 mmol/L (98-107); Glucose 129 mg/dL (74-99); Magnesium 1.8 mg/dL (1.6-2.3); Non-African American GFR(CKD) 88 (>60 ml/min/1.73 sqM); Potassium 5.3 mmol/L (3.5-5.1); Sodium 123 mmol/L (137-145); Total Bilirubin 1.8 mg/dL (0.2-1.3); Total Protein 5.5 g/dL (6.3-8.2)
[2023-01-06 19:29] LABS: Anisocytosis Moderate; HCT 24.7 % (39.0-53.0); HGB 8.5 gm/dL (13.0-17.5); MCH 30.6 pg (25.0-35.0); MCHC 34.6 g/dL (31.0-37.0); MCV 88.4 fL (80.0-100.0); Mean Platelet Volume 9.9; RBC 2.79 m/uL (4.30-5.90); RDW 21.1 % (11.5-15.5); WBC 35.6 k/uL (3.8-10.6)
[2023-01-06 19:30] LABS: Platelet Count 85 k/uL (150-450)
[2023-01-06 19:33] LABS: INR 1.1 (<1.2); Partial Thromboplastin Time 27.7 sec (22.0-30.0); Prothrombin Time 11.5 sec (9.0-12.0)
--- NOTE | 2023-01-06 19:47 | XR ---
EXAMINATION TYPE: XR chest 2V DATE OF EXAM: 01/06/2023 7:18 PM COMPARISON: Chest radiographs from 10/19/2022 TECHNIQUE: XR chest 2V Frontal and lateral views of the chest. CLINICAL INDICATION:Male, 77 years old with history of Weakness; FINDINGS: Lungs/Pleura: Low lung volumes are present. There is no evidence of pleural effusion, focal consolida tion, or pneumothorax. Pulmonary vascularity: Unremarkable. Heart/mediastinum: Cardiomediastinal silhouette is enlarged and stable. Musculoskeletal: No acute osseous pathology. Other findings: None Lines/Tubes:Veqgua-k-Hrcq projecting over the right hemithorax with distal tip projecting over the kirby perior vena cava. IMPRESSION: Low lung volumes with a generalized hazy appearance which could represent atelectasis versus pulmonar y edema correlate with serum BNP.
[2023-01-06] MEDS ORDERED: PIPERACILLIN-TAZOBACTAM 3.375 GM in SODIUM CHLORIDE 0.9% 100 ML IVPB STA (20:04)
--- NOTE | 2023-01-06 21:03 | CT ---
EXAMINATION TYPE: CT ChestAbdPelvis w con CT DLP: 1714.3 mGycm, Automated exposure control for dose reduction was used. DATE OF EXAM: 01/06/2023 8:35 PM COMPARISON: 08/09/2022 CLINICAL INDICATION:Male, 77 years old with history of leukocytosis with transaminitis and pancreatic can;, weakness, pancreatic ca Technique: Multiple axial images of the chest, abdomen, and pelvis were obtained. Two-dimensional cor onal and sagittal reconstructions were obtained. Contrast used:100 mL of Isovue 370 with IV Contrast, Oral contrast used: without Oral Contrast Findings: CHEST: Motion limits evaluation. LUNGS/ PLEURA: Intralobular septal thickening. Motion limits evaluation. Trace bilateral pleural effu sions. No focal consolidation. Expiratory imaging of the lungs. AIRWAY: Patent and unremarkable. HEART: Size the heart is mildly enlarged for size there is coronary artery dislocations and aortic va lve leaflet calcifications. MEDIASTINUM: No gross evidence of adenopathy. VASCULATURE: No aortic aneurysm. Right chest wall Duyneb-v-Ffkl with tip terminating in superior karen a cava. MUSCULOSKELETAL: No acute osseous abnormalities. SOFT TISSUES/LYMPH NODES: Unremarkable. LOWER NECK: No significant findings. ABDOMEN: Motion limits evaluation. ABDOMEN LIVER: Low signal cyst in thee dome of the liver. Other ill-defined areas are seen within the left he patic lobe lower density. The falciform ligament in segment IVb cyst measuring 3.7 x 2.5 cm. GALLBLADDER AND BILE DUCTS: There is air within the gallbladder lumen. Intrahepatic pneumobilia is pr esent. Biliary stent is in place. Layering gallstones are patent in the gallbladder lumen. Mild intra hepatic biliary dilation. PANCREAS: Primary pancreatic tumor less well visualized lesion measures 2.8 x 1.5 cm.. SPLEEN: Unremarkable. ADRENAL GLANDS: Unremarkable. KIDNEYS AND URETERS: No evidence of hydronephrosis or renal calculus. The ureters are unremarkable. PELVIS BLADDER: The bladder is distended. REPRODUCTIVE: Prostate is enlarged in size measuring 5.0 cm in transverse dimension. ABDOMEN & PELVIS STOMACH AND BOWEL: No evidence of bowel obstruction. Scattered colonic diverticula. Nondistention of the sigmoid colon. There is changes around the colon. PERITONEUM: No evidence of pneumoperitoneum or free fluid. VASCULATURE: No evidence of aortic aneurysm. MUSCULOSKELETAL: No acute osseous abnormalities LYMPH NODES: No gross evidence for lymphadenopathy. L1 vertebral body compression deformity with vert ical step-off of the superior endplate. Underlying lucent lesion may be present within this vertebral body. SOFT TISSUE/ABDOMINAL WALL: Bilateral fat-containing inguinal hernias. IMPRESSION: 1. Low-density regions in the liver not represent edema with pneumobilia, gallbladder air correlate for ascending infection. 2. Intralobular septal thickening with bilateral pleural effusions correlate with serum BNP for casie estive heart failure. 3. The pancreatic lesion in the uncinate process may be fractured smaller. Motion limits evaluation and measurements. 4. Mild inflammation changes around the sigmoid colon, correlate for colitis. 5. L1 vertebral body superior endplate compression fracture suggested. Underlying pathologic fractur e not entirely excluded given some lucency. Correlate with outpatient MRI with IV contrast. 6. Prostatomegaly correlate with PSA.
[2023-01-06 21:24] LABS: T4, Free (Free Thyroxine) 1.17 ng/dL (0.78-2.19)
[2023-01-06] MEDS ORDERED: LORazepam 2 MG/ML INJ IV STA (21:32)
[2023-01-06 22:13] LABS: Lymphocytes # (M) 0.71 k/uL (1.0-4.8); Metamyelocytes # (M) 0.36 k/uL (0); Metamyelocytes % 1 %; Neutrophils # (M) 31.33 k/uL (1.3-7.7); Neutrophils % (M) 88 %; Nucleated Red Blood Cells 0 /100 WBC (0-0); Total Cells Counted 100
[2023-01-06 22:14] LABS: Anisocytosis (M) Present; Hypochromasia (M) Present; Polychromasia Present
[2023-01-06] MEDS ORDERED: BENZONATATE 100 MG CAP PO STA (23:30)
[2023-01-07] MEDS ORDERED: ACETAMINOPHEN TAB 500 MG TAB PO PRN (00:50)
[2023-01-07] MEDS ORDERED: ONDANSETRON 4 MG TAB PO PRN (01:08)
[2023-01-07] MEDS: SODIUM BICARBONATE TAB 650 MG TAB PO SCH ×3 (02:20→21:43)
[2023-01-07] MEDS: PIPERACILLIN-TAZOBACTAM 3.375 GM in SODIUM CHLORIDE 0.9% 100 ML IVPB SCH ×3 (05:07→21:45)
[2023-01-07] MEDS ORDERED: ACETAMINOPHEN TAB 325 MG TAB PO PRN (09:27)
[2023-01-07 10:13] LABS: Phosphorus 5.1 mg/dL (2.5-4.5)
[2023-01-07] MEDS: TAMSULOSIN 0.4 MG CAP.ER.24H PO SCH (10:43)
[2023-01-07 10:47] LABS: Anisocytosis Moderate; HCT 24.1 % (39.0-53.0); MCH 29.6 pg (25.0-35.0); MCHC 33.3 g/dL (31.0-37.0); MCV 88.9 fL (80.0-100.0); Mean Platelet Volume 9.8; RBC 2.72 m/uL (4.30-5.90); RDW 21.3 % (11.5-15.5)
[2023-01-07 11:04] LABS: ALT 116 U/L (4-49); AST 180 U/L (17-59); African American GFR (CKD) >90 (>60 ml/min/1.73 sqM); Albumin 2.6 g/dL (3.5-5.0); Alkaline Phosphatase 456 U/L (38-126); Anion Gap 8 mmol/L; Blood Urea Nitrogen 23 mg/dL (9-20); Calcium 7.4 mg/dL (8.4-10.2); Carbon Dioxide 20 mmol/L (22-30); Chloride 98 mmol/L (98-107); Glucose 111 mg/dL (74-99); Non-African American GFR(CKD) 87 (>60 ml/min/1.73 sqM); Potassium 4.3 mmol/L (3.5-5.1); Sodium 126 mmol/L (137-145); Total Bilirubin 1.1 mg/dL (0.2-1.3)
[2023-01-07 11:33] LABS: Amorphous Sediment,Urine Rare /hpf; Appearance,Urine Cloudy (Clear); Bacteria,Urine Many /hpf; Bilirubin,Urine Negative (Negative); Blood,Urine Trace (Negative); Color,Urine Yellow; Glucose,Urine (UA) Negative (Negative); Ketones,Urine Negative (Negative); Leukocyte Esterase,Urine Large (Negative); Mucus,Urine Rare /hpf; Nitrite,Urine Positive (Negative); PH, Urine 5.5 (5.0-8.0); Protein,Urine 1+ (Negative); RBC,Urine 2 /hpf (0-5); Specific Gravity,Urine 1.014 (1.001-1.035); Urobilinogen,Urine <2.0 mg/dL (<2.0); WBC,Urine >182 /hpf (0-5)
[2023-01-07 12:36] LABS: Band Neutrophils % 2 %; Eosinophils # (M) 0.34 k/uL (0-0.7); Lymphocytes # (M) 1.72 k/uL (1.0-4.8); Metamyelocytes # (M) 0.69 k/uL (0); Metamyelocytes % 2 %; Monocytes # (M) 1.37 k/uL (0-1.0); Myelocytes # (M) 0.34 k/uL (0); Myelocytes % 1 %; Neutrophils % (M) 87 %; Nucleated Red Blood Cells 1 /100 WBC (0-0); Total Cells Counted 200; WBC 34.3 k/uL (3.8-10.6)
[2023-01-07 12:38] LABS: Poikilocytosis (M) Present; Tear Drop Cells Present; Toxic Granulation Present
[2023-01-07 12:40] LABS: Platelet Count 70 k/uL (150-450)
--- NOTE | 2023-01-07 14:24 | P.CONS ---
History of Present Illness - Reason for Consult Consult date: 01/07/23 - History of Present Illness Patient is a 77-year-old male with history of recently diagnosed pancreatic c ancer, started on chemotherapy 3 months ago. [facility] has been consulted for medical management while patient awaits transfer to [facility]. The last couple of days he started noticing increase lower extremity swelling as well as shortness of breath. He denies any significant abdominal pain. He denies any fevers, chills, chest pain, palpitations, nausea, vomiting, urinary or bowel complaints. In the ED, temperature was 98.3, pulse 111, blood pressure 111/58, saturating at 96% on room air. Initial blood work showed WBC of 35.6, hemoglobin 8.5, sodium 123, potassium 5.3, creatinine 0.79, bicarb 16, total bilirubin 1.8, AST 343, ALT 167, ALP 577, negative troponin, proBNP 1700, TSH 6.9, free T4 1 0.17, respiratory viral panel negative. Chest x-ray shows possibly pulmonary vascular congestion. CT abdomen and pelvis shows low-density lesions in the liver with intrahepatic pneumobilia, gallbladder air with concern for ascending infection, bilateral pleural effusions, L1 vertebral bodies compression fracture, prostatomegaly. Started on IV Zosyn. Was given IV fluids initially. Pending transfer Pertinent positives and negatives as discussed in HPI, a complete review of systems was performed and all other systems are negative. Patient seen and examined at bedside. Vital signs reviewed General: nontoxic, no distress, appears at stated age Derm: warm, dry Head: atraumatic, normocephalic, symmetric Eyes: EOMI, no lid lag, anicteric sclera, pupils equal round reactive to light ENT: Nose and ears atraumatic Neck: No thyromegaly, supple Mouth: no lip lesion, mucus membranes moist Cardiovascular: S1S2 reg, systolic murmur, 2+ edema Lungs: Bilateral rales, no wheeze, no accessory muscle use Abdominal: soft, nontender to palpation, no guarding, no appreciable org anomegaly Ext: no gross muscle atrophy, muscle strength muscle strength 5 out of 5 in all 4 extremities, no contractures Neuro: CN II-XII grossly intact Psych: Alert, oriented, appropriate affect Assessment/Plan: Sepsis secondary to suspected ascending cholangitis Recently diagnosed pancreatic cancer on chemotherapy status post biliary stent Normocytic anemia Fluid overload, possible CHF exacerbation Hyponatremia, hypovolemic Non-anion gap metabolic acidosis Dyslipidemia -Agree with IV Zosyn -Avoid high-dose Tylenol -Possibly infected biliary stent -She has fluid overload however in the context of sepsis, would avoid diuresing at the moment -Sodium did improve with fluids -Avoid any further IV fluids -Metabolic acidosis improving -Statin being held Pending transfer Thank you for allowing us to participate in the care of this pleasant patient. Do not hesitate to contact us with questions. Someone can be reached from the [facility] [place] hospitalist group all hours of the day at [phone] or via [employer]. Past Medical History Past Medical History: Hyperlipidemia, Hypertension Additional Past Medical History / Comment(s): pancreatic cancer diagnosed on 08/22/22 at [facility] History of Any Multi-Drug Resistant Organisms: None Reported Past Surgical History: Joint Replacement Additional Past Surgical History / Comment(s): RIGHT KNEE REPLACED, stent Past Anesthesia/Blood Transfusion Reactions: No Reported Reaction Additional Past Anesthesia/Blood Transfusion Reaction / Comm: never received blood before Past Psychological History: No Psychological Hx Reported Smoking Status: Former smoker Past Alcohol Use History: None Reported Past Drug Use History: None Reported - Past Family History Brother(s) Additional Family Medical History / Comment(s): gallstones Father Additional Family Medical History / Comment(s): prostate cancer, from "old age" Mother Additional Family Medical History / Comment(s): from PE after open heart surgery. Medications and Allergies Home Medications Medication Instructions Recorded Confirmed Type Atorvastatin [Lipitor] 40 mg PO HS 12/05/15 01/06/23 History amLODIPine [Norvasc] 10 mg PO HS 12/05/15 01/06/23 History Tamsulosin [Flomax] 0.4 mg PO PC-BRKFST #30 cap 09/14/22 01/06/23 Rx Ondansetron [Zofran] 1 tab PO Q4H PRN 10/15/22 01/06/23 History Furosemide [Lasix] 20 mg PO DAILY 01/06/23 01/06/23 History Hydrocortisone 2.5% Lotion 1 applic TOPICAL TID 01/06/23 01/06/23 History Lactulose [Constulose] 10 gm PO DAILY 01/06/23 01/06/23 History Lidocaine-Prilocaine Cream [Emla 1 applic TOPICAL DAILY PRN 01/06/23 01/06/23 History Cream 2.5%/2.5%] Multivitamins, Thera [Multivitamin 1 tab PO DAILY 01/06/23 01/06/23 History (formulary)] Nitrofurantoin Monohyd/M-Cryst 100 mg PO DAILY 01/06/23 01/06/23 History [Macrobid] Potassium Chloride ER [K-Dur 20] 20 meq PO DAILY 01/06/23 01/06/23 History Allergies Allergy/AdvReac Type Severity Reaction Status Date / Time No Known Allergies Allergy Verified 01/06/23 20:54 Physical Exam Vitals: Vital Signs Temp Pulse Resp BP Pulse Ox 01/07/23 11:00 85 16 97 01/07/23 10:34 83 18 113/67 98 01/07/23 10:28 82 16 117/69 98 01/07/23 06:55 76 18 113/67 97 01/07/23 04:03 79 24 113/64 96 01/07/23 03:24 77 24 01/07/23 02:00 116/61 93 L 01/07/23 01:00 92 25 H 109/68 01/07/23 00:04 96 18 117/68 96 01/07/23 00:00 98 40 H 117/68 01/06/23 23:00 98 26 H 113/65 01/06/23 22:57 98 24 113/65 96 01/06/23 22:00 96 26 H 111/67 01/06/23 21:00 97 30 H 115/65 91 L 01/06/23 20:46 96 5 L 119/63 92 L 01/06/23 20:45 96 22 115/65 95 01/06/23 19:01 92 18 112/64 97 01/06/23 17:24 98.3 F 111 H 24 111/58 96 Intake and Output 01/06/23 01/07/23 01/07/23 22:59 06:59 14:59 Other: Weight 95.254 kg Results CBC & Chem 7: 01/07/23 10:28 01/07/23 10:28 Labs: Abnormal Lab Results - Last 24 Hours (Table) 01/06/23 01/06/23 01/06/23 Range/Units 19:01 19:01 19:01 WBC 35.6 H (3.8-10.6) k/uL RBC 2.79 L (4.30-5.90) m/uL Hgb 8.5 L (13.0-17.5) gm/dL Hct 24.7 L (39.0-53.0) % RDW 21.1 H (11.5-15.5) % Plt Count 85 L (150-450) k/uL Neutrophils # (Manual) 31.33 H (1.3-7.7) k/uL Lymphocytes # (Manual) 0.71 L (1.0-4.8) k/uL Monocytes # (Manual) 3.20 H (0-1.0) k/uL Metamyelocytes # (Man) 0.36 H (0) k/uL Myelocytes # (Manual) (0) k/uL Nucleated RBCs (0-0) /100 WBC Sodium 123 L (137-145) mmol/L Potassium 5.3 H (3.5-5.1) mmol/L Chloride 95 L (98-107) mmol/L Carbon Dioxide 16 L (22-30) mmol/L BUN 28 H (9-20) mg/dL Glucose 129 H (74-99) mg/dL Plasma Lactic Acid Mehdi 2.3 H* (0.7-2.0) mmol/L Calcium 8.2 L (8.4-10.2) mg/dL Phosphorus 5.1 H (2.5-4.5) mg/dL Total Bilirubin 1.8 H (0.2-1.3) mg/dL AST 343 H (17-59) U/L ALT 167 H (4-49) U/L Alkaline Phosphatase 577 H (38-126) U/L Total Protein 5.5 L (6.3-8.2) g/dL Albumin 2.9 L (3.5-5.0) g/dL TSH 6.970 H (0.465-4.680) mIU/L Urine Protein (Negative) Urine Blood (Negative) Ur Leukocyte Esterase (Negative) Urine WBC (0-5) /hpf Urine WBC Clumps (None) /hpf Amorphous Sediment (None) /hpf Urine Bacteria (None) /hpf Urine Mucus (None) /hpf 0801/07/23 01/07/23 Range/Units 10:28 10:28 10:28 WBC 34.3 H (3.8-10.6) k/uL RBC 2.72 L (4.30-5.90) m/uL Hgb 8.0 L (13.0-17.5) gm/dL Hct 24.1 L (39.0-53.0) % RDW 21.3 H (11.5-15.5) % Plt Count 70 L (150-450) k/uL Neutrophils # (Manual) 30.50 H (1.3-7.7) k/uL Lymphocytes # (Manual) (1.0-4.8) k/uL Monocytes # (Manual) 1.37 H (0-1.0) k/uL Metamyelocytes # (Man) 0.69 H (0) k/uL Myelocytes # (Manual) 0.34 H (0) k/uL Nucleated RBCs 1 H (0-0) /100 WBC Sodium 126 L (137-145) mmol/L Potassium (3.5-5.1) mmol/L Chloride (98-107) mmol/L Carbon Dioxide 20 L (22-30) mmol/L BUN 23 H (9-20) mg/dL Glucose 111 H (74-99) mg/dL Plasma Lactic Acid Mehdi (0.7-2.0) mmol/L Calcium 7.4 L (8.4-10.2) mg/dL Phosphorus (2.5-4.5) mg/dL Total Bilirubin (0.2-1.3) mg/dL AST 180 H (17-59) U/L ALT 116 H (4-49) U/L Alkaline Phosphatase 456 H (38-126) U/L Total Protein 5.0 L (6.3-8.2) g/dL Albumin 2.6 L (3.5-5.0) g/dL TSH (0.465-4.680) mIU/L Urine Protein 1+ H (Negative) Urine Blood Trace H (Negative) Ur Leukocyte Esterase Large H (Negative) Urine WBC >182 H (0-5) /hpf Urine WBC Clumps Many H (None) /hpf Amorphous Sediment Rare H (None) /hpf Urine Bacteria Many H (None) /hpf Urine Mucus Rare H (None) /hpf
[2023-01-07] MEDS: ALPRAZolam 0.5 MG TAB PO PRN (16:37)
[2023-01-08] MEDS: PIPERACILLIN-TAZOBACTAM 3.375 GM in SODIUM CHLORIDE 0.9% 100 ML IVPB SCH ×2 (05:54→13:16)
[2023-01-08 07:37] VITALS: TEMP 98.2
[2023-01-08] MEDS: SODIUM BICARBONATE TAB 650 MG TAB PO SCH (08:08)
[2023-01-08] MEDS: TAMSULOSIN 0.4 MG CAP.ER.24H PO SCH (08:08)
[2023-01-08] MEDS: ALPRAZolam 0.5 MG TAB PO PRN ×3 (08:08→20:02)
[2023-01-08 13:50] LABS: Anisocytosis Moderate; HCT 24.9 % (39.0-53.0); HGB 8.2 gm/dL (13.0-17.5); Hypochromasia Slight; MCH 29.7 pg (25.0-35.0); MCHC 32.9 g/dL (31.0-37.0); MCV 90.4 fL (80.0-100.0); Macrocytosis Slight; Mean Platelet Volume 9.1; RBC 2.75 m/uL (4.30-5.90); RDW 21.8 % (11.5-15.5); WBC 34.8 k/uL (3.8-10.6)
[2023-01-08 13:52] LABS: Platelet Count 76 k/uL (150-450)
[2023-01-08 14:04] LABS: ALT 84 U/L (4-49); AST 111 U/L (17-59); African American GFR (CKD) >90 (>60 ml/min/1.73 sqM); Albumin 2.6 g/dL (3.5-5.0); Alkaline Phosphatase 446 U/L (38-126); Anion Gap 8 mmol/L; Blood Urea Nitrogen 22 mg/dL (9-20); Calcium 7.1 mg/dL (8.4-10.2); Carbon Dioxide 20 mmol/L (22-30); Chloride 98 mmol/L (98-107); Glucose 103 mg/dL (74-99); Non-African American GFR(CKD) 90 (>60 ml/min/1.73 sqM); Potassium 3.9 mmol/L (3.5-5.1); Sodium 126 mmol/L (137-145); Total Bilirubin 0.9 mg/dL (0.2-1.3); Total Protein 4.9 g/dL (6.3-8.2)
--- NOTE | 2023-01-08 14:51 | P.PN ---
Subjective Progress Note Date: 01/08/23 Patient is a 77-year-old male with history of recently diagnosed pancreatic cancer, started on chemotherapy 3 months ago. [facility] has been consulted for medical management while patient awaits transfer to [facility]. The last couple of days he started noticing increase lower extremity swelling as well as shortness of breath. He denies any significant abdominal pain. He denies any fevers, chills, chest pain, palpitations, nausea, vomiting, urinary or bowel complaints. In the ED, temperature was 98.3, pulse 111, blood pressure 111/58, saturating at 96% on room air. Initial blood work showed WBC of 35.6, hemoglobin 8.5, sodium 123, potassium 5.3, creatinine 0.79, bicarb 16, total bilirubin 1.8, AST 343, ALT 167, ALP 577, negative troponin, proBNP 1700, TSH 6.9, free T4 1 0.17, respiratory viral panel negative. Chest x-ray shows possibly pulmonary vascular congestion. CT abdomen and pelvis shows low-density lesions in the liver with intrahepatic pneumobilia, gallbladder air with concern for ascending infection, bilateral pleural effusions, L1 vertebral bodies compression fracture, prostatomegaly. Started on IV Zosyn. Was given IV fluids initially. Pending transfer to [facility] (accepted waiting for a bed). 01/08 Patient was seen and examined. Family at bedside. Patient reports increased anxiety and lower extremity swelling. Denies abdominal pain, fever, chills, or issues with urination or bowel habits. CBC shows WBC count of 34.8 and hemoglobin of 8.2 with platelet count of 76. BMP shows sodium of 126, bicarb of 20, BUN 22, glucose of 103, calcium of 7.1, AST 111, ALT of 84, alkaline phosphatase of 446. Case was discussed with Dr. Donato who recommended transfer to [facility] for advanced GI workup. Case discussed with transfer center at [facility] bed availability is still pending. Vital signs: BP 96/48 HR 95. RR 22. T 98.2F. 94% on RA. General: nontoxic, no distress, appears at stated age Derm: warm, dry Head: atraumatic, normocephalic, symmetric Eyes: EOMI, no lid lag, anicteric sclera ENT: Nose and ears atraumatic Neck: No thyromegaly, supple Mouth: no lip lesion, mucus membranes moist Cardiovascular: S1S2 reg, systolic murmur, 2+ edema Lungs: Bilateral rales, no wheeze, no accessory muscle use Abdominal: soft, nontender to palpation, no guarding, no appreciable organomegaly Psych: Alert, oriented, appropriate affect Sepsis secondary to suspected ascending cholangitis Recently diagnosed pancreatic cancer on chemotherapy status post biliary stent Normocytic anemia Fluid overload, possible CHF exacerbation Hyponatremia, hypovolemic Non-anion gap metabolic acidosis Dyslipidemia Based on my assessment of this patient, this patient meets a high complexity level of care. Patient has an acute diagnosis of sepsis related to acute ascending cholangitis that poses a threat to life or bodily function. Sepsis secondary to suspected ascending cholangitis: Agree with Zosyn 3.75g IV Q8H. Blood culture prelim negative. Vital signs hourly. Telemetry monitoring. Gentle hydration with NS at 50 cc/hr. Recently diagnosed pancreatic cancer on chemotherapy status post biliary stent: Transfer to [facility] pending bed availability. Normocytic anemia: Stable. Transfuse if Hg < 7. Fluid overload, possible CHF exacerbation: BP is borderline. Continue gentle IV hydration. Hyponatremia, hypovolemic: Possibly hypervolemic. Non-anion gap metabolic acidosis Dyslipidemia I have reviewed the following environmental remediation consultant notes: I have reviewed the results of the following tests: CBC, CMP. I have ordered the following tests: CBC, CMP. I have discussed the care of this patient with the following independent historian: Case discussed with RN and transfer team at [facility]. I have independently interpreted the following test below: I have discussed the management of this patient with the following physician: Case discussed with Dr. Donato. Objective - Vital Signs Vital signs: Vital Signs Temp 98.2 F 01/08/23 07:35 Pulse 95 01/08/23 13:06 Resp 22 01/08/23 13:06 BP 96/48 01/08/23 13:06 Pulse Ox 94 L 01/08/23 13:06 FiO2 - Labs CBC & Chem 7: 01/08/23 13:19 01/08/23 13:19 Labs: Abnormal Lab Results - Last 24 Hours (Table) 01/08/23 01/08/23 Range/Units 13:19 13:19 WBC 34.8 H (3.8-10.6) k/uL RBC 2.75 L (4.30-5.90) m/uL Hgb 8.2 L (13.0-17.5) gm/dL Hct 24.9 L (39.0-53.0) % RDW 21.8 H (11.5-15.5) % Plt Count 76 L (150-450) k/uL Sodium 126 L (137-145) mmol/L Carbon Dioxide 20 L (22-30) mmol/L BUN 22 H (9-20) mg/dL Glucose 103 H (74-99) mg/dL Calcium 7.1 L (8.4-10.2) mg/dL AST 111 H (17-59) U/L ALT 84 H (4-49) U/L Alkaline Phosphatase 446 H (38-126) U/L Total Protein 4.9 L (6.3-8.2) g/dL Albumin 2.6 L (3.5-5.0) g/dL Microbiology - Last 24 Hours (Table) 01/06/23 19:16 Blood Culture - Preliminary Blood 01/06/23 19:01 Blood Culture - Preliminary Blood
[2023-01-08] MEDS ORDERED: SODIUM CHLORIDE 0.9% 1,000 ML IV SCH (15:00)
[2023-01-08 20:21] VITALS: BP 123/62; PULSE 87; RESP 22
[2023-01-09] MEDS ORDERED: PANTOPRAZOLE 40 MG/10 ML VIAL IV SCH (09:00)
== END 2023-01-08 20:45 | disposition other institution (70) ==
LOC: EC 17:22
DX: K83.09 Other cholangitis (principal); E78.5 Hyperlipidemia, unspecified; I10 Essential (primary) hypertension; Z87.891 Personal history of nicotine dependence; Z79.899 Other long term (current) drug therapy; Z20.822 Contact with and (suspected) exposure to COVID-19
CPT/HCPCS: 99285; 96365; 96375; 96361; 96367; 96366 ×22; 36415 ×3; 93005; 86900; 86901; 84439; 83880; 80053 ×3; 82150; 83605; 83690; 83735; 84100; 84443; 84484; 85025 ×2; 85027; 85610; 85730; 86850; 81001; 87040; 87635; 87636; 71046; 71260; 74177; J2543 ×3; J2060; Q9967

== ENCOUNTER → 2023-01-14 | Outpatient (CLI) | payer MEDICARE ==
[2023-01-14 09:41] LABS: African American GFR (CKD) >90 (>60 ml/min/1.73 sqM); Blood Urea Nitrogen 16 mg/dL (9-20); Non-African American GFR(CKD) >90 (>60 ml/min/1.73 sqM)
--- NOTE | 2023-01-16 07:01 | CT ---
EXAMINATION TYPE: CT ChestAbdPelvis w con DATE OF EXAM: 01/14/2023 COMPARISON: 01/06/2023, 08/09/2022 HISTORY: 78-year-old male C2 5.0, Malignant neoplasm of pancreas. TECHNIQUE: Contiguous axial scanning of the chest, abdomen, and pelvis performed with IV Contrast, pa tient injected with 100ml mL of Isovue 300. Delayed images through the kidneys were obtained. Coronal /sagittal reconstructions performed. CT DLP: 1807.3 mGycm Automated exposure control for dose reduction was used. FINDINGS: Chest: Heart borderline enlarged. Prominent aortic valvular calcifications are present. Mild aneurysm ascend ing aorta 4.2 cm redemonstrated. Mild atherosclerotic arch calcifications. Conventional arch vessel b ranching anatomy. Ectatic upper descending thoracic aorta 3.4 cm. Right anterior chest wall injection port with catheter tip at the upper to mid SVC. Large caliber to the main right and left pulmonary arteries measuring up to 3.2 cm suggesting underly ing pulmonary hypertension. Scattered nonenlarged mediastinal lymph nodes measuring up to 6 mm are unchanged. No thoracic lymphad enopathy by CT size criteria. Patchy groundglass opacities in the visualized bilateral lungs. Previous small right pleural effusion has improved. Some patchy bibasilar areas of probable atelectasis persist. ABDOMEN: A few hepatic hypodensities, largest along the falciform ligament measuring 3.6 cm andr in the right hepatic dome measuring 5.8 cm suggestive of cysts. A couple smaller lesions such as measuring up to 1 .0 cm anterior left liver lobe also present and remain unchanged. No abnormal gallbladder distention or nondependent gallbladder air and mild pneumobilia in keeping wi th patient's biliary stents. A second stent appears to have been placed in the interval. Portal venou s system is patent. Adrenal glands, right kidney within normal limits. Splenic length 15.9 cm. Vague hypodense area withi n the head of the pancreas estimated to measure 3.0 x 1.9 cm versus 2.8 x 1.5 cm, previously. On 08/09 estimated at 2.9 x 2.8 cm. Not significantly changed from recent prior. 2.0 cm cortical cyst anterior left kidney. Mild atherosclerotic calcifications abdominal aorta and iliac arteries. No dilated small bowel, free fluid, or free air. No mesenteric or retroperitoneal lymphadenopathy see n. New trace abdominal ascites. Ongoing generalized anasarca change. Mild stool burden. Left-sided colonic diverticulosis with redundant sigmoid colon. No findings of acu te diverticulitis. Small fatty umbilical hernia measuring 2.0 cm wide. Pelvis: There is moderate to severe circumferential bladder wall thickening that has increased from prior. Pr ostate gland measures 5.1 cm wide. Presacral edema in keeping with anasarca. No abnormal fluid collec tion in the pelvis or pelvic lymphadenopathy. Bones: Moderate degenerative change of the hips. Extensive dish throughout the thoracic spine into the upper lumbar spine. Similar mild anterior wedge deformity of L1 with underlying hypodense area which is no nspecific. Possible vertebral body hemangioma. Other etiology not excluded. A chronic compression inj ury is favored. Moderate multilevel spondylotic change. IMPRESSION: 1. STABLE TO POSSIBLY MINIMALLY LARGER HYPODENSE LESION OF THE PANCREATIC HEAD ESTIMATED AT 3.0 X 1.9 CM (PREVIOUSLY MEASURING 2.8 X 1.5 CM). 2. INTERVAL PLACEMENT OF A SECOND BILIARY STENT. REDEMONSTRATED PNEUMOBILIA. HYPODENSE LESIONS IN THE LIVER MEASURING UP TO 5.8 CM ARE UNCHANGED AND FAVORED TO REPRESENT CYSTS. 3. PATCHY GROUNDGLASS OPACITIES IN THE BILATERAL LUNGS PERSIST. CORRELATE FOR POSSIBLE ETIOLOGIES INC LUDING PATCHY PULMONARY EDEMA, ATYPICAL/COVID PNEUMONIA, SALES PERSON, AND DRUG REACTION. 4. ONGOING GENERALIZED ANASARCA CHANGE. THERE IS TRACE ABDOMINAL ASCITES FLUID BUT THE PREVIOUS SMALL EFFUSIONS HAVE RESOLVED. 5. INTERVAL DEVELOPMENT OF MODERATE TO SEVERE CIRCUMFERENTIAL BLADDER WALL THICKENING. CORRELATE FOR CYSTITIS.
== END | disposition home or self-care (01) ==
LOC: RADPROMAIN 08:35
PROVIDERS: ATTEND Internal Medicine Hematology & Oncology
DX: Z03.89 Encounter for observation for other suspected diseases and conditions ruled out (principal); C25.0 Malignant neoplasm of head of pancreas; K76.89 Other specified diseases of liver; R91.8 Other nonspecific abnormal finding of lung field; R60.1 Generalized edema; N32.89 Other specified disorders of bladder
CPT/HCPCS: 82565; 84520; 71260; 74177; J1642; Q9967

== ENCOUNTER 2023-01-15 13:06 | Emergency (ER) | payer MEDICARE ==
[2023-01-15 13:12] VITALS: RESP 24
[2023-01-15 13:58] LABS: Anisocytosis Moderate; Basophils # (A) 0.1 k/uL (0-0.2); Basophils % (A) 0 %; Eosinophils # (A) 0.3 k/uL (0-0.7); Eosinophils % (A) 2 %; HCT 26.1 % (39.0-53.0); HGB 8.4 gm/dL (13.0-17.5); Hypochromasia Slight; Lymphocytes # (A) 0.9 k/uL (1.0-4.8); Lymphocytes % (A) 5 %; MCH 30.1 pg (25.0-35.0); MCHC 32.4 g/dL (31.0-37.0); Macrocytosis Slight; Mean Platelet Volume 8.2; Monocytes % (A) 5 %; Neutrophils # (A) 16.7 k/uL (1.3-7.7); Neutrophils % (A) 87 %; Poikilocytosis Slight; RDW 22.4 % (11.5-15.5); WBC 19.2 k/uL (3.8-10.6)
[2023-01-15 14:03] LABS: INR 1.1 (<1.2); Partial Thromboplastin Time 26.3 sec (22.0-30.0); Prothrombin Time 11.1 sec (9.0-12.0)
[2023-01-15 14:09] LABS: ALT 36 U/L (4-49); African American GFR (CKD) >90 (>60 ml/min/1.73 sqM); Albumin 2.7 g/dL (3.5-5.0); Anion Gap 10 mmol/L; Blood Urea Nitrogen 18 mg/dL (9-20); Calcium 7.9 mg/dL (8.4-10.2); Carbon Dioxide 21 mmol/L (22-30); Chloride 93 mmol/L (98-107); Glucose 134 mg/dL (74-99); Non-African American GFR(CKD) >90 (>60 ml/min/1.73 sqM); Sodium 124 mmol/L (137-145); Total Bilirubin 1.2 mg/dL (0.2-1.3); Total Protein 5.4 g/dL (6.3-8.2)
[2023-01-15 14:10] LABS: AST 74 U/L (17-59); Alkaline Phosphatase 266 U/L (38-126); Potassium 4.2 mmol/L (3.5-5.1)
[2023-01-15 14:13] LABS: Platelet Count 215 k/uL (150-450)
--- NOTE | 2023-01-15 14:36 | ED ---
SOB HPI - General Chief Complaint: Shortness of Breath Stated Complaint: low o2, left lung not clear Time Seen by Provider: 01/15/23 13:53 Source: patient, RN notes reviewed Mode of arrival: EMS Limitations: no limitations - History of Present Illness Initial Comments: This is a 78-year-old male who presents to the emergency department for shortness of breath. Reports difficulty catching his breath and states that this has been an ongoing issue for him. He was just admitted here, followed by an admission at [facility]. He was diagnosed with pancreatic cancer and is currently receiving chemotherapy. He does not wear oxygen at home, but states that during each admission he required supplemental oxygen with a nasal cannula. States that he came to the emergency department today hoping to get set up with oxygen at home and would like to avoid admission if possible. Reports associated coughing but denies any chest pain. Denies any fevers, chills, sore throat, chest pain, palpitations, abdominal pain, nausea, vomiting, diarrhea, back pain, or headaches. MD Complaint: shortness of breath, cough - Related Data Home Medications Medication Instructions Recorded Confirmed amLODIPine [Norvasc] 10 mg PO HS 12/05/15 01/15/23 Ondansetron [Zofran] 1 tab PO Q4H PRN 10/15/22 01/15/23 Furosemide [Lasix] 40 mg PO BID 01/06/23 01/15/23 Lidocaine-Prilocaine Cream [Emla 1 applic TOPICAL DAILY PRN 01/06/23 01/15/23 Cream 2.5%/2.5%] Multivitamins, Thera [Multivitamin 1 tab PO DAILY 01/06/23 01/15/23 (formulary)] Nitrofurantoin Monohyd/M-Cryst 100 mg PO DAILY 01/06/23 01/15/23 [Macrobid] Potassium Chloride ER [K-Dur 20] 20 meq PO DAILY 01/06/23 01/15/23 ALPRAZolam [Xanax] 0.5 mg PO TID PRN 01/15/23 01/15/23 Hydrocortisone Oint 1 applic TOPICAL TID 01/15/23 01/15/23 [Hydrocortisone 2.5% Oint] Previous Rx's Medication Instructions Recorded Tamsulosin [Flomax] 0.4 mg PO -BRKFST #30 cap 09/14/22 Amoxic-Pot Clav 875-125Mg 1 tab PO Q12HR 7 Days #14 tab 01/15/23 [Augmentin 875-125] Azithromycin [Zithromax] 250 mg PO DIRECTED 5 Days #6 tab 01/15/23 Promethazine/Dextromethorphan 5 ml PO Q4-6H PRN #473 ml 01/15/23 [Promethazine-Dm Syrup] Allergies Allergy/AdvReac Type Severity Reaction Status Date / Time No Known Allergies Allergy Verified 01/15/23 15:11 Review of Systems ROS Statement: Those systems with pertinent positive or pertinent negative responses have been documented in the HPI. ROS Other: All systems not noted in ROS Statement are negative. Past Medical History Past Medical History: Hyperlipidemia, Hypertension Additional Past Medical History / Comment(s): pancreatic cancer diagnosed on at [facility] History of Any Multi-Drug Resistant Organisms: None Reported Past Surgical History: Joint Replacement Additional Past Surgical History / Comment(s): RIGHT KNEE REPLACED, stent Past Anesthesia/Blood Transfusion Reactions: No Reported Reaction Additional Past Anesthesia/Blood Transfusion Reaction / Comment(s): never received blood before Past Psychological History: No Psychological Hx Reported Smoking Status: Former smoker Past Alcohol Use History: None Reported Past Drug Use History: None Reported - Past Family History Brother(s) Additional Family Medical History / Comment(s): gallstones Father Additional Family Medical History / Comment(s): prostate cancer, from "old age" Mother Additional Family Medical History / Comment(s): from PE after open heart surgery. General Exam Limitations: no limitations General appearance: alert, in no apparent distress Head exam: Present: atraumatic, normocephalic, normal inspection Respiratory exam: Present: decreased breath sounds, prolonged expiratory Cardiovascular Exam: Present: regular rate, normal rhythm, normal heart sounds. Absent: systolic murmur, diastolic murmur, rubs, gallop, clicks Neurological exam: Present: alert, oriented X3, CN II-XII intact Psychiatric exam: Present: normal affect, normal mood Skin exam: Present: warm, dry, intact, normal color. Absent: rash Course Vital Signs 01/15/23 01/15/23 13:08 17:22 Temperature 98.5 F 100.0 F H Pulse Rate 86 93 Respiratory 24 24 Rate Blood Pressure 128/65 135/77 O2 Sat by Pulse 86 L 94 L Oximetry Medical Decision Making - Medical Decision Making This is a 78-year-old male who presents to the emergency department for shortness of breath. Was pt. sent in by a medical professional or institution? @ -No Did you speak to anyone other than the patient for history? @ -No Did you review nursing and triage notes? @ -Yes, and I agree, it is accurate with regards to the patient's symptoms. Were old charts reviewed? @ -No Differential Diagnosis? @ -Differential Dyspnea: Coronary syndrome, arrhythmia, tamponade, asthma, COPD, pulmonary embolism, pneumonia, pneumothorax, pulmonary effusion, anaphylaxis, diabetic ketoacidosis, flailed chest, pulmonary contusion, diaphragmatic rupture, anemia, neuromuscular, this is not meant to be an all-inclusive list. EKG interpreted by me (3pts min.)? @ -EKG interpreted by me demonstrating the following: Ventricular rate 83 beats per minute, WI interval 153 ms, QRS duration 109 ms, QTC 418 ms. X-rays interpreted by me (1pt min.)? @ -Chest x-ray obtained. My interpretation identifies a right upper lobe opacity. CT interpreted by me (1pt min.)? @ -Not obtained U/S interpreted by me (1pt. min.)? @ -Not obtained What testing was considered but not performed? (CT, X-rays, U/S, labs)? Why? @ -None What meds were considered but not given? Why? @ -None Did you discuss the management of the patient with other professionals? @ -Yes, case management, who spoke with [facility]. They provided the patient with oxygen to use at home. Did you reconcile home meds? @ -No Was smoking cessation discussed for >3mins.? @ -No Was critical care preformed (if so, how long)? @ -No Were there social determinants of health that impacted care today? How? (Homelessness, low income, unemployed, alcoholism, drug addiction, transportation, low edu. Level, literacy, decrease access to med. care, detention, rehab)? @ -No Was there de-escalation of care discussed even if they declined? (Discuss DNR or withdrawal of care, Hospice)? @ -No What co-morbidities impacted this encounter? (DM, HTN, Smoking, COPD, CAD, Cancer, CVA, Hep., AIDS, mental health diagnosis, sleep apnea, morbid obesity)? @ -HTN, HLD, pancreatic cancer, CHF Was patient admitted / discharged? @ -Discharged. Lab work obtained revealing leukocytosis, hyponatremia, elevated lactic acid, and elevated liver enzymes. BNP elevated at 2940. Chest x-ray reveals an increasing opacity in the right upper lobe and pulmonary venous congestion with small effusions. He was also found to be hypoxic on room air with an oxygen saturation of 86%. He was subsequently put on a nasal cannula with 3 L. I had wanted to admit the patient in light of these findings and his comorbidities. However, the patient has been in the hospital so much frequently in light of this new diagnosis, and he is hoping to be discharged home with home oxygen. I spoke with case management, who was able to connect with someone at [facility]. They went to speak with the patient and his family in the emergency department and provided them with oxygen tanks to take home. They are also going out to his house tomorrow to get them set up with additional supplies. Given the leukocytosis with x-ray findings, I will treat the patient for pneumonia. Based on current recommendations in light of his comorbidities and immunocompromised state, he was put on both Augmentin and azithromycin. He was also given a prescription for promethazine DM cough syrup, as [id number] er cough medication has not been effective. I again reiterated with the patient that it is against our medical advice that he be discharged home, however he and his family are comfortable caring for him at this time. They advised that they will monitor his oxygen closely and bring him back to the emergency department if symptoms worsen. Undiagnosed new problem with uncertain prognosis? @ -None Drug Therapy requiring intensive monitoring for toxicity (Heparin, Nitro, Insulin, Cardizem)? @ -None Were any procedures done? @ -None Diagnosis/symptom? @ -Pneumonia, hypoxia Acute, or Chronic, or Acute on Chronic? @ -Acute Uncomplicated (without systemic symptoms) or Complicated (systemic symptoms)? @ -Uncomplicated Side effects of treatment? @ -None Exacerbation, Progression, or Severe Exacerbation] @ -Not applicable Poses a threat to life or bodily function? @ -Yes Return precautions reviewed in depth, the patient is instructed to return to the emergency department with any new, worsening, or concerning symptoms. Patient verbalized understanding. This case was discussed in detail with the attending ED physician, Dr. Brown. Presentation, findings, and treatment plan discussed in detail as well. - Lab Data Result diagrams: 01/15/23 13:42 01/15/23 13:42 Lab Results 01/15/23 01/15/23 01/15/23 Range/Units 13:38 13:42 13:42 WBC 19.2 H (3.8-10.6) k/uL RBC 2.80 L (4.30-5.90) m/uL Hgb 8.4 L (13.0-17.5) gm/dL Hct 26.1 L (39.0-53.0) % MCV 93.0 (80.0-100.0) fL MCH 30.1 (25.0-35.0) pg MCHC 32.4 (31.0-37.0) g/dL RDW 22.4 H (11.5-15.5) % Plt Count 215 D (150-450) k/uL MPV 8.2 Neutrophils % 87 % Lymphocytes % 5 % Monocytes % 5 % Eosinophils % 2 % Basophils % 0 % Neutrophils # 16.7 H (1.3-7.7) k/uL Lymphocytes # 0.9 L (1.0-4.8) k/uL Monocytes # 1.0 (0-1.0) k/uL Eosinophils # 0.3 (0-0.7) k/uL Basophils # 0.1 (0-0.2) k/uL Hypochromasia Slight Poikilocytosis Slight Anisocytosis Moderate Macrocytosis Slight PT 11.1 (9.0-12.0) sec INR 1.1 (<1.2) APTT 26.3 (22.0-30.0) sec Sodium (137-145) mmol/L Potassium (3.5-5.1) mmol/L Chloride (98-107) mmol/L Carbon Dioxide (22-30) mmol/L Anion Gap mmol/L BUN (9-20) mg/dL Creatinine (0.66-1.25) mg/dL Est GFR (CKD-EPI)AfAm (>60 ml/min/1.73 sqM) Est GFR (CKD-EPI)NonAf (>60 ml/min/1.73 sqM) Glucose (74-99) mg/dL Lactic Ac Sepsis Rflx Plasma Lactic Acid Mehdi 2.4 H* (0.7-2.0) mmol/L Calcium (8.4-10.2) mg/dL Total Bilirubin (0.2-1.3) mg/dL AST (17-59) U/L ALT (4-49) U/L Alkaline Phosphatase (38-126) U/L Troponin I (0.000-0.034) ng/mL NT-Pro-B Natriuret Pep pg/mL Total Protein (6.3-8.2) g/dL Albumin (3.5-5.0) g/dL 01/15/23 01/15/23 01/15/23 Range/Units 13:42 13:42 13:42 WBC (3.8-10.6) k/uL RBC (4.30-5.90) m/uL Hgb (13.0-17.5) gm/dL Hct (39.0-53.0) % MCV (80.0-100.0) fL MCH (25.0-35.0) pg MCHC (31.0-37.0) g/dL RDW (11.5-15.5) % Plt Count (150-450) k/uL MPV Neutrophils % % Lymphocytes % % Monocytes % % Eosinophils % % Basophils % % Neutrophils # (1.3-7.7) k/uL Lymphocytes # (1.0-4.8) k/uL Monocytes # (0-1.0) k/uL Eosinophils # (0-0.7) k/uL Basophils # (0-0.2) k/uL Hypochromasia Poikilocytosis Anisocytosis Macrocytosis PT (9.0-12.0) sec INR (<1.2) APTT (22.0-30.0) sec Sodium 124 L (137-145) mmol/L Potassium 4.2 (3.5-5.1) mmol/L Chloride 93 L (98-107) mmol/L Carbon Dioxide 21 L (22-30) mmol/L Anion Gap 10 mmol/L BUN 18 (9-20) mg/dL Creatinine 0.54 L (0.66-1.25) mg/dL Est GFR (CKD-EPI)AfAm >90 (>60 ml/min/1.73 sqM) Est GFR (CKD-EPI)NonAf >90 (>60 ml/min/1.73 sqM) Glucose 134 H (74-99) mg/dL Lactic Ac Sepsis Rflx Plasma Lactic Acid Mehdi (0.7-2.0) mmol/L Calcium 7.9 L (8.4-10.2) mg/dL Total Bilirubin 1.2 (0.2-1.3) mg/dL AST 74 H (17-59) U/L ALT 36 (4-49) U/L Alkaline Phosphatase 266 H (38-126) U/L Troponin I 0.019 (0.000-0.034) ng/mL NT-Pro-B Natriuret Pep 2940 pg/mL Total Protein 5.4 L (6.3-8.2) g/dL Albumin 2.7 L (3.5-5.0) g/dL 01/15/23 Range/Units 14:09 WBC (3.8-10.6) k/uL RBC (4.30-5.90) m/uL Hgb (13.0-17.5) gm/dL Hct (39.0-53.0) % MCV (80.0-100.0) fL MCH (25.0-35.0) pg MCHC (31.0-37.0) g/dL RDW (11.5-15.5) % Plt Count (150-450) k/uL MPV Neutrophils % % Lymphocytes % % Monocytes % % Eosinophils % % Basophils % % Neutrophils # (1.3-7.7) k/uL Lymphocytes # (1.0-4.8) k/uL Monocytes # (0-1.0) k/uL Eosinophils # (0-0.7) k/uL Basophils # (0-0.2) k/uL Hypochromasia Poikilocytosis Anisocytosis Macrocytosis PT (9.0-12.0) sec INR (<1.2) APTT (22.0-30.0) sec Sodium (137-145) mmol/L Potassium (3.5-5.1) mmol/L Chloride (98-107) mmol/L Carbon Dioxide (22-30) mmol/L Anion Gap mmol/L BUN (9-20) mg/dL Creatinine (0.66-1.25) mg/dL Est GFR (CKD-EPI)AfAm (>60 ml/min/1.73 sqM) Est GFR (CKD-EPI)NonAf (>60 ml/min/1.73 sqM) Glucose (74-99) mg/dL Lactic Ac Sepsis Rflx Y Plasma Lactic Acid Mehdi (0.7-2.0) mmol/L Calcium (8.4-10.2) mg/dL Total Bilirubin (0.2-1.3) mg/dL AST (17-59) U/L ALT (4-49) U/L Alkaline Phosphatase (38-126) U/L Troponin I (0.000-0.034) ng/mL NT-Pro-B Natriuret Pep pg/mL Total Protein (6.3-8.2) g/dL Albumin (3.5-5.0) g/dL - Radiology Data Radiology results: report reviewed, image reviewed Disposition Clinical Impression: Pneumonia, Hypoxia Disposition: HOME SELF-CARE Instructions (If sedation given, give patient instructions): Pneumonia (ED) Additional Instructions: Return to the emergency department with any new, worsening, or concerning symptoms. Take the Augmentin as prescribed for 7 days and the azithromycin as prescribed for 5 days. You can take the cough medication every 4-6 hours as needed. Follow up with your primary care provider in 1-2 days. Prescriptions: Amoxic-Pot Clav 875-125Mg [Augmentin 875-125] 1 tab PO Q12HR 7 Days #14 tab Promethazine/Dextromethorphan [Promethazine-Dm Syrup] 5 ml PO Q4-6H PRN #473 ml PRN Reason: Cough Azithromycin [Zithromax] 250 mg PO DIRECTED 5 Days #6 tab Is patient prescribed a controlled substance at d/c from ED?: No Referrals: Feliciano Johnson MD [Primary Care Provider] - 1-2 days [employer] [NON-STAFF] - (Supplier of home oxygen )
--- NOTE | 2023-01-15 14:38 | XR ---
EXAMINATION TYPE: XR chest 2V DATE OF EXAM: 01/15/2023 COMPARISON: 01/06/2023 HISTORY: Shortness of breath TECHNIQUE: Frontal and lateral views of the chest are obtained. FINDINGS: Scattered senescent parenchymal changes noted. Hyperinflation compatible with COPD. There is increasing opacity right upper lobe which may reflect developing infiltrate. There is also c ardiomegaly with pulmonary venous congestion and small effusions. Mediastinal structures are stable a nd grossly unremarkable. No evidence for hilar prominence. Degenerative changes dorsal spine. IMPRESSION: 1. Correlate for mildly progressive congestive failure. Infiltrates of other etiology not excluded. C orrelate clinically.
[2023-01-15 17:32] VITALS: BP 135/77; PULSE 93; TEMP 100
== END 2023-01-15 17:31 | disposition home or self-care (01) ==
LOC: EC 13:06
DX: J18.9 Pneumonia, unspecified organism (principal); I10 Essential (primary) hypertension; Z79.899 Other long term (current) drug therapy; Z87.891 Personal history of nicotine dependence
CPT/HCPCS: 36415; 71046; 80053; 83605; 83880; 84484; 85025; 85610; 85730; 93005; 99285

== ENCOUNTER 2023-09-02 23:09 | Emergency (ER) | payer MEDICARE ==
--- NOTE | 2023-09-02 23:36 | ED ---
Weakness HPI - General Chief complaint: Abdominal Pain Stated complaint: Dehydration, Abdominal Cramps, shakes Time Seen by Provider: 09/02/23 23:18 Source: patient, family, RN notes reviewed, old records reviewed Mode of arrival: wheelchair Limitations: no limitations - History of Present Illness Initial comments: This is a 78-year-old male to the ER for evaluation of weakness weakness abdominal pain nausea dehydration. Underlying history of cancer with difficulty with appetite, decreased activity level today and decreasing activity level for a few days now significantly worse throughout the day today. Patient's abdominal pain this is normal abdominal pain no worse no different MD Complaint: generalized weakness, lack of energy -: days(s) Location: generalized Severity: severe Severity scale (1-10): 9 Improves with: none Worsens with: none Context: recent illness, history of similar Associated Symptoms: denies other symptoms - Related Data Home Medications Medication Instructions Recorded Confirmed Clopidogrel [Plavix] 75 mg PO DAILY 03/26/23 08/02/23 Losartan [Cozaar] 25 mg PO DAILY 03/26/23 08/02/23 Metoprolol Tartrate [Lopressor] 25 mg PO DAILY 03/26/23 08/02/23 Previous Rx's Medication Instructions Recorded Tamsulosin [Flomax] 0.4 mg PO PC-BRKFST #30 cap 09/14/22 Allergies Allergy/AdvReac Type Severity Reaction Status Date / Time No Known Allergies Allergy Verified 08/02/23 10:20 Review of Systems ROS Statement: Those systems with pertinent positive or pertinent negative responses have been documented in the HPI. ROS Other: All systems not noted in ROS Statement are negative. Past Medical History Past Medical History: Hyperlipidemia, Hypertension Additional Past Medical History / Comment(s): pancreatic cancer diagnosed on 08/22/22 at [facility] [place] [facility] History of Any Multi-Drug Resistant Organisms: None Reported Past Surgical History: Joint Replacement Additional Past Surgical History / Comment(s): RIGHT KNEE REPLACED, stent, taver Past Anesthesia/Blood Transfusion Reactions: No Reported Reaction Additional Past Anesthesia/Blood Transfusion Reaction / Comment(s): never received blood before Past Psychological History: No Psychological Hx Reported Smoking Status: Former smoker Past Alcohol Use History: None Reported Past Drug Use History: None Reported - Past Family History Brother(s) Additional Family Medical History / Comment(s): gallstones Father Additional Family Medical History / Comment(s): prostate cancer, from "old age" Mother Additional Family Medical History / Comment(s): from PE after open heart surgery. General Exam Limitations: no limitations General appearance: alert, in no apparent distress Head exam: Present: atraumatic, normocephalic, normal inspection Eye exam: Present: normal appearance, PERRL, EOMI. Absent: scleral icterus, conjunctival injection, periorbital swelling ENT exam: Present: normal exam, mucous membranes moist Neck exam: Present: normal inspection. Absent: tenderness, meningismus, lymphadenopathy Respiratory exam: Present: normal lung sounds bilaterally. Absent: respiratory distress, wheezes, rales, rhonchi, stridor Cardiovascular Exam: Present: regular rate, normal rhythm, normal heart sounds. Absent: systolic murmur, diastolic murmur, rubs, gallop, clicks GI/Abdominal exam: Present: soft, normal bowel sounds. Absent: distended, tenderness, guarding, rebound, rigid Extremities exam: Present: normal inspection, full ROM, normal capillary refill. Absent: tenderness, pedal edema, joint swelling, calf tenderness Back exam: Present: normal inspection Neurological exam: Present: alert, oriented X3, CN II-XII intact Psychiatric exam: Present: normal affect, normal mood Skin exam: Present: warm, dry, intact, normal color. Absent: rash Course Vital Signs 09/02/23 09/03/23 09/03/23 23:13 00:30 01:00 Temperature 97.8 F Pulse Rate 102 H 87 100 Respiratory 20 18 18 Rate Blood Pressure 115/76 136/73 132/76 O2 Sat by Pulse 94 L 95 96 Oximetry 09/03/23 01:43 Temperature Pulse Rate 94 Respiratory 18 Rate Blood Pressure 127/71 O2 Sat by Pulse 97 Oximetry - Reevaluation(s) Reevaluation #1: 09/02/23 23:36 Records reviewed Reevaluation #2: Patient symptoms are improved Reevaluation #3: Patient informed of results and questions answered Reevaluation #4: Was pt. sent in by a medical professional or institution (, PA, DYE MAKER, urgent care, hospital, or fci...) When possible be specific @ -no Did you speak to anyone other than the patient for history (EMS, parent, family, police, friend...)? What history was obtained from this source @ -no Did you review nursing and triage notes (agree or disagree)? Why? @ -agree Are old charts reviewed (outside hosp., previous admission, EMS record, old EKG, old radiological studies, urgent care reports/EKG's, fci records)? Report findings @ -yes Differential Diagnosis (chest pain, altered mental status, abdominal pain women, abdominal pain men, vaginal bleeding, weakness, fever, dyspnea, syncope, headache, dizziness, GI bleed, back pain, seizure, CVA, palpatations, mental h ealth, musculoskeletal)? @ -prior EKG interpreted by me (3pts min.). @ -yes X-rays interpreted by me (1pt min.). @ -no CT interpreted by me (1pt min.). @ -no U/S interpreted by me (1pt. min.). @ -no What testing was considered but not performed or refused? (CT, X-rays, U/S, labs)? Why? @ -none What meds were considered but not given or refused? Why? @ -none Did you discuss the management of the patient with other professionals (professionals i.e. , PA, DYE MAKER, lab, RT, psych nurse, psychologist social, jazz musician, teacher, aircraft electronics technical officer, case planner)? Give summary @ -no Was smoking cessation discussed for >3mins.? @ -no Was critical care preformed (if so, how long)? @ -no Were there social determinants of health that impacted care today? How? (Homelessness, low income, unemployed, alcoholism, drug addiction, transportation, low edu. Level, literacy, decrease access to med. care, longterm, rehab)? @ -none Was there de-escalation of care discussed even if they declined (Discuss DNR or withdrawal of care, Hospice)? DNR status @ -no What co-morbidities impacted this encounter? (DM, HTN, Smoking, COPD, CAD, Cancer, CVA, ARF, Chemo, Hep., AIDS, mental health diagnosis, sleep apnea, morbi d obesity)? @ -none Was patient admitted / discharged? Hospital course, mention meds given and rout e, prescriptions, significant lab abnormalities, going to OR and other pertinent info. @ - 78 male with acute dehydration, patient feels better with adequate resuscitation here in the emergency room, does not want further inpatient hospitalization will be discharged home Discharge Undiagnosed new problem with uncertain prognosis? @ -no Drug Therapy requiring intensive monitoring for toxicity (Heparin, Nitro, Insulin, Cardizem)? @ -no Were any procedures done? @ -no Diagnosis/symptom? @ -Hyponatremia weakness and dehydration Acute, or Chronic, or Acute on Chronic? @ -Acute Uncomplicated (without systemic symptoms) or Complicated (systemic symptoms)? @ -Complicated Side effects of treatment? @ -no Exacerbation, Progression, or Severe Exacerbation? @ -exacerbation Poses a threat to life or bodily function? How? (Chest pain, USA, DC, pneumonia, PE, COPD, DKA, ARF, appy, cholecystitis, CVA, Diverticulitis, Homicidal, Suicidal, threat to staff... and all critical care pts) @ -yes extremes of age EKG Findings - EKG Comments: EKG Findings:: EKG is sinus 84 MO 184 QRS 83 QTc 402 - EKG Results: EKG: interpreted by ALFREDO Medical Decision Making - Medical Decision Making 78 male with acute dehydration, patient feels better with adequate resuscitation here in the emergency room, does not want further inpatient hospitalization will be discharged home - Lab Data Result diagrams: 09/02/23 23:40 09/02/23 23:40 Lab Results 09/02/23 09/02/23 09/02/23 Range/Units 23:40 23:40 23:40 WBC 10.9 H (3.8-10.6) k/uL RBC 4.32 (4.30-5.90) m/uL Hgb 12.9 L (13.0-17.5) gm/dL Hct 40.0 (39.0-53.0) % MCV 92.8 (80.0-100.0) fL MCH 30.0 (25.0-35.0) pg MCHC 32.3 (31.0-37.0) g/dL RDW 14.8 (11.5-15.5) % Plt Count 83 L (150-450) k/uL MPV 8.1 Neutrophils % 89 % Lymphocytes % 3 % Monocytes % 7 % Eosinophils % 0 % Basophils % 0 % Neutrophils # 9.7 H (1.3-7.7) k/uL Lymphocytes # 0.4 L (1.0-4.8) k/uL Monocytes # 0.7 (0-1.0) k/uL Eosinophils # 0.0 (0-0.7) k/uL Basophils # 0.0 (0-0.2) k/uL PT 12.6 H (10.0-12.5) sec INR 1.2 H (<1.2) APTT 27.6 (22.0-30.0) sec Sodium 127 L (137-145) mmol/L Potassium 4.1 (3.5-5.1) mmol/L Chloride 102 (98-107) mmol/L Carbon Dioxide 14 L (22-30) mmol/L Anion Gap 11 mmol/L BUN 15 (9-20) mg/dL Creatinine 0.64 L (0.66-1.25) mg/dL Est GFR (CKD-EPI)AfAm >90 (>60 ml/min/1.73 sqM) Est GFR (CKD-EPI)NonAf >90 (>60 ml/min/1.73 sqM) Glucose 142 H (74-99) mg/dL Plasma Lactic Acid Mehdi (0.7-2.0) mmol/L Calcium 8.5 (8.4-10.2) mg/dL Phosphorus 3.3 (2.5-4.5) mg/dL Magnesium 1.6 (1.6-2.3) mg/dL Total Bilirubin 4.6 H (0.2-1.3) mg/dL AST 98 H (17-59) U/L ALT 73 H (4-49) U/L Alkaline Phosphatase 245 H (38-126) U/L Troponin I (0.000-0.034) ng/mL NT-Pro-B Natriuret Pep 722 pg/mL Total Protein 6.6 (6.3-8.2) g/dL Albumin 3.6 (3.5-5.0) g/dL TSH 4.430 (0.465-4.680) mIU/L Urine Color Urine Appearance (Clear) Urine pH (5.0-8.0) Ur Specific [place] (1.001-1.035) Urine Protein (Negative) Urine Glucose (UA) (Negative) Urine Ketones (Negative) Urine Blood (Negative) Urine Nitrite (Negative) Urine Bilirubin (Negative) Urine Urobilinogen (<2.0) mg/dL Ur Leukocyte Esterase (Negative) 09/02/23 09/02/23 09/03/23 Range/Units 23:40 23:40 00:45 WBC (3.8-10.6) k/uL RBC (4.30-5.90) m/uL Hgb (13.0-17.5) gm/dL Hct (39.0-53.0) % MCV (80.0-100.0) fL MCH (25.0-35.0) pg MCHC (31.0-37.0) g/dL RDW (11.5-15.5) % Plt Count (150-450) k/uL MPV Neutrophils % % Lymphocytes % % Monocytes % % Eosinophils % % Basophils % % Neutrophils # (1.3-7.7) k/uL Lymphocytes # (1.0-4.8) k/uL Monocytes # (0-1.0) k/uL Eosinophils # (0-0.7) k/uL Basophils # (0-0.2) k/uL PT (10.0-12.5) sec INR (<1.2) APTT (22.0-30.0) sec Sodium (137-145) mmol/L Potassium (3.5-5.1) mmol/L Chloride (98-107) mmol/L Carbon Dioxide (22-30) mmol/L Anion Gap mmol/L BUN (9-20) mg/dL Creatinine (0.66-1.25) mg/dL Est GFR (CKD-EPI)AfAm (>60 ml/min/1.73 sqM) Est GFR (CKD-EPI)NonAf (>60 ml/min/1.73 sqM) Glucose (74-99) mg/dL Plasma Lactic Acid Mehdi 1.3 (0.7-2.0) mmol/L Calcium (8.4-10.2) mg/dL Phosphorus (2.5-4.5) mg/dL Magnesium (1.6-2.3) mg/dL Total Bilirubin (0.2-1.3) mg/dL AST (17-59) U/L ALT (4-49) U/L Alkaline Phosphatase (38-126) U/L Troponin I 0.017 (0.000-0.034) ng/mL NT-Pro-B Natriuret Pep pg/mL Total Protein (6.3-8.2) g/dL Albumin (3.5-5.0) g/dL TSH (0.465-4.680) mIU/L Urine Color Yellow Urine Appearance Clear (Clear) Urine pH 6.5 (5.0-8.0) Ur Specific [place] 1.011 (1.001-1.035) Urine Protein Negative (Negative) Urine Glucose (UA) Negative (Negative) Urine Ketones Negative (Negative) Urine Blood Negative (Negative) Urine Nitrite Negative (Negative) Urine Bilirubin Negative (Negative) Urine Urobilinogen <2.0 (<2.0) mg/dL Ur Leukocyte Esterase Negative (Negative) - EKG Data -: EKG Interpreted by Me Disposition Clinical Impression: MELVIN (acute kidney injury), Dehydration, Hyponatremia Disposition: HOME SELF-CARE Condition: Good Instructions (If sedation given, give patient instructions): Hyponatremia (ED) Is patient prescribed a controlled substance at d/c from ED?: No Referrals: Feliciano Johnson MD [Primary Care Provider] - 1-2 days Time of Disposition: 00:55
[2023-09-02] MEDS: MORPHINE SULFATE 4 MG/ML SYRINGE IV STA (23:45)
[2023-09-02] MEDS: SODIUM CHLORIDE 0.9% 1,000 ML IV STA (23:45)
[2023-09-02] MEDS: ONDANSETRON 4 MG/2 ML VIAL IVP STA (23:45)
[2023-09-02 23:47] VITALS: TEMP 97.8
[2023-09-03 00:25] LABS: INR 1.2 (<1.2); Partial Thromboplastin Time 27.6 sec (22.0-30.0); Prothrombin Time 12.6 sec (10.0-12.5)
[2023-09-03 00:33] LABS: ALT 73 U/L (4-49); AST 98 U/L (17-59); African American GFR (CKD) >90 (>60 ml/min/1.73 sqM); Albumin 3.6 g/dL (3.5-5.0); Alkaline Phosphatase 245 U/L (38-126); Anion Gap 11 mmol/L; Blood Urea Nitrogen 15 mg/dL (9-20); Calcium 8.5 mg/dL (8.4-10.2); Carbon Dioxide 14 mmol/L (22-30); Chloride 102 mmol/L (98-107); Glucose 142 mg/dL (74-99); Magnesium 1.6 mg/dL (1.6-2.3); Non-African American GFR(CKD) >90 (>60 ml/min/1.73 sqM); Phosphorus 3.3 mg/dL (2.5-4.5); Potassium 4.1 mmol/L (3.5-5.1); Sodium 127 mmol/L (137-145); Total Bilirubin 4.6 mg/dL (0.2-1.3); Total Protein 6.6 g/dL (6.3-8.2)
[2023-09-03 00:41] LABS: NT-Pro-B-Type Natriuretic Pept 722 pg/mL
[2023-09-03 00:55] LABS: Basophils % (A) 0 %; Eosinophils % (A) 0 %; HGB 12.9 gm/dL (13.0-17.5); Lymphocytes # (A) 0.4 k/uL (1.0-4.8); Lymphocytes % (A) 3 %; MCHC 32.3 g/dL (31.0-37.0); MCV 92.8 fL (80.0-100.0); Mean Platelet Volume 8.1; Monocytes # (A) 0.7 k/uL (0-1.0); Monocytes % (A) 7 %; Neutrophils # (A) 9.7 k/uL (1.3-7.7); Neutrophils % (A) 89 %; RBC 4.32 m/uL (4.30-5.90); RDW 14.8 % (11.5-15.5); WBC 10.9 k/uL (3.8-10.6)
[2023-09-03] MEDS: SODIUM CHLORIDE 0.9% 500 ML 500 ML IV STA (00:59)
[2023-09-03] MEDS: MAGNESIUM OXIDE 400 MG TAB PO STA (01:01)
[2023-09-03] MEDS: SODIUM CHLORIDE TAB 1 GM TAB PO STA (01:01)
[2023-09-03 01:02] LABS: Platelet Count 83 k/uL (150-450)
[2023-09-03 01:23] VITALS: RESP 18
[2023-09-03 01:26] LABS: Appearance,Urine Clear (Clear); Bilirubin,Urine Negative (Negative); Blood,Urine Negative (Negative); Color,Urine Yellow; Glucose,Urine (UA) Negative (Negative); Ketones,Urine Negative (Negative); Leukocyte Esterase,Urine Negative (Negative); Nitrite,Urine Negative (Negative); PH, Urine 6.5 (5.0-8.0); Protein,Urine Negative (Negative); Specific Gravity,Urine 1.011 (1.001-1.035); Urobilinogen,Urine <2.0 mg/dL (<2.0)
[2023-09-03 02:03] VITALS: BP 127/71; PULSE 94
[2023-09-03] MEDS ORDERED: MULTIVITAMINS, THERA 1 EACH TAB PO SCH (09:00)
== END 2023-09-03 01:43 | disposition home or self-care (01) ==
LOC: EC 23:09
DX: N17.9 Acute kidney failure, unspecified (principal); E86.0 Dehydration; E87.1 Hypo-osmolality and hyponatremia; Z87.891 Personal history of nicotine dependence
CPT/HCPCS: 36415; 93005; 83880; 80053; 83605; 83735; 84100; 84443; 84484; 85025; 85610; 85730; 81003; 99284; 96374; 96361 ×2; J3360

== ENCOUNTER 2024-01-10 13:23 | Emergency (ER) | payer MEDICARE ==
[2024-01-10] MEDS ORDERED: IBUPROFEN 600 MG TAB PO ONE (14:51)
[2024-01-10] MEDS ORDERED: FAMOTIDINE 20 MG/2 ML VIAL ONE (14:51)
[2024-01-10] MEDS ORDERED: ONDANSETRON 4 MG/2 ML VIAL ONE (14:51)
[2024-01-10] MEDS ORDERED: SODIUM CHLORIDE 0.9% 1,000 ML BAG ONE (16:00)
--- NOTE | 2024-02-06 08:12 | XR ---
Patient Nba Abarca ID [id number] Order # EXAMINATION TYPE: XR chest 2V DATE OF EXAM: 01/10/2024 COMPARISON: No comparison available on downtime PACS. INDICATION: Short of breath and fever TECHNIQUE: Frontal and lateral views of the chest are obtained. FINDINGS: The heart size is normal. The pulmonary vasculature is normal. The lungs are clear. Prior TAVR. Catheter enters on the right tip in the proximal superior vena cava region. IMPRESSION: 1. No acute pulmonary process radiographically apparent..
== END 2024-01-10 21:00 ==
LOC: EC 13:23
CPT/HCPCS: 71046; 87040; 87077; 87086; 87186; 96365; 96375; 99284